=== PATIENT | female | born 1955 | race Caucasian/White ===

== ENCOUNTER → 2018-09-10 13:39 | Outpatient (CLI) | payer BC, SELFPAY ==
[2018-09-10 14:04] LABS: Add Manual Diff / Slide Review NO; Basophils Percent Auto 0.3 % (0-2); Eosinophils Percent Auto 4.3 % (2-4); Hematocrit 41.6 % (36-46); Lymphocytes Percent Auto 27.1 % (25-40); Mean Corpuscular HGB Conc 33.7 % (30-36); Mean Corpuscular Hemoglobin 30.7 PG (26-34); Mean Corpuscular Volume 91.2 fL (80-100); Monocytes Percent Auto 10.2 % (3-14); Neutrophils Absolute Auto 2000 /uL (3000-5900); Neutrophils Percent Auto 58.1 % (50-75); Platelet Count 208 X10^3/uL (150-400); Red Blood Cell Count 4.56 X10^6/uL (4.0-5.2); Red Cell Distribution Width 14.3 % (11.6-14.8); White Blood Cell Count 3.5 X10^3/uL (4.5-11.0)
[2018-09-10 14:56] LABS: Alanine Aminotransferase 37 IU/L (9-52); Albumin 4.3 g/dL (3.5-5.0); Albumin Globulin Ratio 1.5 (1.0-2.8); Alkaline Phosphatase 70 U/L (38-126); Aspartate Aminotransferase 32 IU/L (14-36); BUN Creatinine Ratio 37.1 (6-22); Bilirubin Total 0.6 mg/dL (0.2-1.3); Blood Urea Nitrogen 26 mg/dL (7-17); Calcium 9.9 mg/dL (8.4-10.2); Carbon Dioxide 28 mmol/L (22-32); Chloride 106 mmol/L (98-107); Estimated Glomerular Filt Rate > 60.0 mL/min (>60); Globulin 2.8 g/dL (1.7-4.1); Glucose 98 mg/dL (80-110); HEMOLYSIS < 15 (0-50); Potassium 4.1 mmol/L (3.4-5.1); Sodium 143 mmol/L (137-145); Total Protein 7.1 g/dL (6.3-8.2)
== END ==
PROVIDERS: Internal Medicine Hematology & Oncology; Family Provider Family Medicine; PCP Family Medicine
DX: C50.912 Malignant neoplasm of unspecified site of left female breast (principal)
CPT/HCPCS: 36415; 80053; 85025

== ENCOUNTER 2018-10-04 16:39 | Oncology outpatient (ONC) | payer BC, SELFPAY ==
--- NOTE | 2018-10-04 16:52 | ONC.APRN.PN ---
PN -Subjective Interval history: Beverly presents today for survivorship counseling. She carries a diagnosis of lobular breast cancer, T3 N1 ER, CT positive, HER 2 negative. Previous treatment included mastectomy, left with sentinel node biopsy March 2017. Chemotherapy was in the form of Adriamycin Cytoxan followed by weekly taxol with final infusion September 2017. She then underwent adjuvant chest wall radiation finishing in October 2017. She was taking letrozole November 2017 through May 2018 however stopped because of severe depression. She is now taking exemestane which was initiated in July 2018. We reviewed NCCN guidelines for surveillance in detail today. Also reviewed her treatment which include mastectomy, chemotherapy, radiation. Patient is now taking AI. We reviewed routine preventative health measures. Primary care is managed by Dr. Adams. This visit was in conjunction with JEFE De Los Santos who addressed psycho social issues. Home Medications and Allergies Home Medications Medication Instructions Recorded Confirmed Type mirabegron [Myrbetriq] 50 mg PO #0 11/06/16 08/25/18 History peginterferon beta-1a [Plegridy] 125 mcg SQ QWEEK #0 02/05/17 09/14/18 History albuterol sulfate HFA 90 2 puff INHALATION Q4-6H PRN #8 gram 05/05/18 09/14/18 Rx mcg/actuation aerosol inhaler bupropion HCl XL 300 mg 24 hr 300 mg PO QDAY #90 tab 06/28/18 09/14/18 Rx tablet, extended release meloxicam 15 mg tablet 15 mg PO Q DAY #90 tab 07/23/18 09/14/18 Rx fluoxetine 40 mg capsule 40 mg PO QDAY #90 cap 08/25/18 09/14/18 Rx lisdexamfetamine 40 mg capsule 40 mg PO QAM #90 cap 08/25/18 09/14/18 Rx montelukast 10 mg tablet 10 mg PO QDAY #90 tab 09/06/18 09/14/18 Rx bupropion HCl XL 150 mg 24 hr 150 mg PO QDAY #90 tab 09/21/18 Rx tablet, extended release Allergies Allergy/AdvReac Type Severity Reaction Status Date / Time feathers [FEATHERS] Allergy Severe ASTHMA Verified 09/14/18 14:54 mold [MOLD] Allergy Severe ASTHMA Verified 09/14/18 14:54 grass pollen [GRASS POLLEN] AdvReac Intermediate DERMATITIS Verified 09/14/18 14:54 Assessment and Plan (1) Breast cancer, left Problem details: 63-year-old woman with a history of a locally advanced lobular carcinoma. She has no evidence of recurrence. She was tolerating letrozole quite poorly. We discussed alternative treatments today. We could perhaps try an alternative aromatase inhibitor to see if she tolerates that better. We also talked about Faslodex but she was reluctant to come for shots every month. She also was unwilling to change her antidepressants and so tamoxifen may not be the best option for her. In the end, she is elected to try and give a try to another aromatase inhibitor. I have sent in a prescription for exemestane 25 mg daily. She will return to clinic in about 3 months for follow-up but sooner should the need arise. She will be due for a mammogram in October. She also had a small apparent an aortic aneurysm detected on echocardiogram last winter and will need to follow up. Current visit: No Status: Chronic Survivorship visit. NCCN surveillance guidelines reviewed in detail with the patient. We also reviewed her treatment plan which included mastectomy, chemotherapy, chest wall radiation. She will follow up with her primary care provider Dr. Adams regarding colonoscopy which she is overdue for also skin exam. She is to continue with exemestane. Patient has an appointment scheduled early next [address] Fischer. She also has an echocoardiogram scheduled. Al questions answered to the pts satisfaction. The pt was provided with documentation of her treatment plan , we will also mail a copy to her PCP. - Time Spent with Patient 35 mins face to face 5 mins prior review 5 mins dictation 5 mins coordination of care with BEER MAKER (1) Breast cancer, left Qualifiers:
--- NOTE | 2018-10-04 16:58 | P.PNONC_ITS ---
PN -Subjective Interval history: Beverly presents today for survivorship counseling. She carries a diagnosis of lobular breast cancer, T3 N1 ER, NM positive, HER 2 negative. Previous treatment included mastectomy, left with sentinel node biopsy March 2017. Chemotherapy was in the form of Adriamycin Cytoxan followed by weekly taxol with final infusion September 2017. She then underwent adjuvant chest wall radiation finishing in October 2017. She was taking letrozole November 2017 through May 2018 however stopped because of severe depression. She is now taking exemestane which was initiated in July 2018. We reviewed NCCN guidelines for surveillance in detail today. Also reviewed her treatment which include mastectomy, chemotherapy, radiation. Patient is now taking AI. We reviewed routine preventative health measures. Primary care is managed by Dr. Adams. This visit was in conjunction with JEFE De Los Santos who addressed psycho social issues. Home Medications and Allergies Home Medications Medication Instructions Recorded Confirmed Type mirabegron [Myrbetriq] 50 mg PO #0 11/06/16 08/25/18 History peginterferon beta-1a [Plegridy] 125 mcg SQ QWEEK #0 02/05/17 09/14/18 History albuterol sulfate HFA 90 2 puff INHALATION Q4-6H PRN #8 gram 05/05/18 09/14/18 Rx mcg/actuation aerosol inhaler bupropion HCl XL 300 mg 24 hr 300 mg PO QDAY #90 tab 06/28/18 09/14/18 Rx tablet, extended release meloxicam 15 mg tablet 15 mg PO Q DAY #90 tab 07/23/18 09/14/18 Rx fluoxetine 40 mg capsule 40 mg PO QDAY #90 cap 08/25/18 09/14/18 Rx lisdexamfetamine 40 mg capsule 40 mg PO QAM #90 cap 08/25/18 09/14/18 Rx montelukast 10 mg tablet 10 mg PO QDAY #90 tab 09/06/18 09/14/18 Rx bupropion HCl XL 150 mg 24 hr 150 mg PO QDAY #90 tab 09/21/18 Rx tablet, extended release Allergies Allergy/AdvReac Type Severity Reaction Status Date / Time feathers [FEATHERS] Allergy Severe ASTHMA Verified 09/14/18 14:54 mold [MOLD] Allergy Severe ASTHMA Verified 09/14/18 14:54 grass pollen [GRASS POLLEN] AdvReac Intermediate DERMATITIS Verified 09/14/18 14 :54 Assessment and Plan (1) Breast cancer, left Problem details: 63-year-old woman with a history of a locally advanced lobular carcinoma. She has no evidence of recurrence. She was tolerating letrozole quite poorly. We discussed alternative treatments today. We could perhaps try an alternative aromatase inhibitor to see if she tolerates that better. We also talked about Faslodex but she was reluctant to come for shots every month. She also was unwilling to change her antidepressants and so tamoxifen may not be the best option for her. In the end, she is elected to try and give a try to another aromatase inhibitor. I have sent in a prescription for exemestane 25 mg daily. She will return to clinic in about 3 months for follow-up but sooner should the need arise. She will be due for a mammogram in October. She also had a small apparent an aortic aneurysm detected on echocardiogram last winter and will need to follow up. Current visit: No Status: Chronic Survivorship visit. NCCN surveillance guidelines reviewed in detail with the patient. We also reviewed her treatment plan which included mastectomy, chemotherapy, chest wall radiation. She will follow up with her primary care provider Dr. Adams regarding colonoscopy which she is overdue for also skin exam. She is to continue with exemestane. Patient has an appointment scheduled early next [address] Fischer. She also has an echocoardiogram scheduled. Al questions answered to the pts satisfaction. The pt was provided with documentation of her treatment plan , we will also mail a copy to her PCP. - Time Spent with Patient 35 mins face to face 5 mins prior review 5 mins dictation 5 mins coordination of care with UTILITY MANAGER (1) Breast cancer, left Qualifiers:
--- NOTE | 2018-10-05 09:50 | ONC.NAV ---
Late Entry: Visit 10/04/18 Description: Survivorship Visit Activity: PIPE STRESS ENGINEER, and ISABEL White, met with pt to discuss her survivorship summary packet. Pt's treatment, risk factors for recurrence, recommendations for ongoing prevention screenings, healthy living recommendations, and psychosocial domain were discussed at length. Copy was also sent to her primary care provider.
== END 2018-12-30 08:27 ==
LOC: ONC 16:40
PROVIDERS: Family Provider Family Medicine; PCP Family Medicine; Visit Provider Nurse Practitioner Gerontology
DX: Z79.811 Long term (current) use of aromatase inhibitors (principal); Z17.0 Estrogen receptor positive status [ER+]; I71.9 Aortic aneurysm of unspecified site, without rupture
CPT/HCPCS: 99215

== ENCOUNTER → 2018-11-05 11:33 | Outpatient (CLI) | payer BC, SELFPAY ==
--- NOTE | 2018-11-05 | DI.MG.S_ITS ---
UNILATERAL RIGHT DIGITAL SCREENING MAMMOGRAM 3D/2D WITH CAD POST MASTECTOMY: 11/05/2018 CLINICAL: Routine screening. Personal history of breast cancer. Family history of breast cancer. Comparison is made to exams dated: 11/17/2017 mammogram, 11/13/2016 mammogram - [facility], and 04/02/2012 mammogram - [facility]. The tissue of right breast is heterogeneously dense. This may lower the sensitivity of mammography. Current study was also evaluated with a Computer Aided Detection (CAD) system. No significant masses, calcifications, or other findings are seen in the breast. There has been no significant interval change. IMPRESSION: NEGATIVE There is no mammographic evidence of malignancy. A 1 year screening mammogram is recommended. This exam was interpreted at Station ID: [id number]. NOTE: For mammograms, a report in lay terms will be sent to the patient. Approximately 15% of breast malignancies will not be visualized mammographically. In the management of a palpable breast mass, a negative mammogram must not discourage biopsy of a clinically suspicious lesion. Electronically Signed By: Sara matute/solomon:11/05/2018 12:54:24 copy to: GALILEO ROWAN letter sent: Normal Exam ACR BI-RADS Category 1: Negative [id number]
== END ==
PROVIDERS: PCP Family Medicine; Visit Provider Family Medicine
DX: Z12.31 Encounter for screening mammogram for malignant neoplasm of breast (principal); Z85.3 Personal history of malignant neoplasm of breast; Z80.3 Family history of malignant neoplasm of breast
CPT/HCPCS: 77063; 77065

== ENCOUNTER → 2019-08-31 11:30 | Outpatient (CLI) | payer OTHER, SELFPAY ==
--- NOTE | 2019-08-31 | DI.MRI.S_ITS ---
PROCEDURE: MR HEAD/BRAIN WO/W CON INDICATIONS: MS TECHNIQUE: Noncontrast sagittal and axial FLAIR, axial and coronal T2 fast spin echo, axial VIBE, axial gradient echo, axial diffusion and ADC through the brain. After the administration of contrast, axial and coronal VIBE with fat saturation through the brain. COMPARISON: [facility], MR, BRAIN W&WO CONTRAST, 12/05/2016, 15:25. FINDINGS: Image quality: Excellent. CSF spaces: Ventricles are normal in size and shape. Basal cisterns are patent. No extra-axial fluid collections. Brain: No intracranial bleeds or mass effects. Caldwell-white matter interface appears intact. Diffuse bilateral white matter signal changes demonstrate stable appearance. No abnormal intracranial enhancement. Diffusion weighted images show no acute ischemic insults. Brainstem appears normal. Normal intravascular flow voids are present. Skull and face: Calvarial marrow signal is normal. Orbits appear normal. Minimal left maxillary sinus mucosal thickening. IMPRESSION: Overall, no interval change. Stable appearance and distribution of scattered bilateral white matter signal changes. No abnormal enhancement. Dictated by: Bryan Gavin M.D. on 08/31/2019 at 12:39 Approved by: Bryan Gavin M.D. on 08/31/2019 at 12:48
== END ==
PROVIDERS: PCP Family Medicine; Visit Provider Specialist
DX: G35 Multiple sclerosis (principal); R26.81 Unsteadiness on feet
CPT/HCPCS: 70553; A9579

== ENCOUNTER 2019-10-21 13:00 | Outpatient (RCR) | payer OTHER, SELFPAY ==
--- NOTE | 2019-07-13 15:08 | PT.OIE ---
Current Diagnoses Strain of other muscles, fascia and tendons at shoulder and upper arm level, unspecified arm, initial encounter (07/13/19) Past Medical History (Last Reviewed 07/05/18 @ 14:37 by Curtis Adams MD) Trigger finger (Chronic) Hot flashes (Chronic) Right knee pain (Chronic) Generalized anxiety disorder (Chronic) Breast cancer, left (Chronic) Migraine (Chronic) Binge eating disorder (Chronic) Attention deficit disorder of adult with hyperactivity (09/20/15) History of hysterectomy (09/20/15) Menopause present (09/20/15) Multiple sclerosis (Chronic 09/20/15) Uncomplicated asthma (09/20/15) Bilateral carpal tunnel syndrome (09/20/15) Emotional lability (06/26/16) Malignant neoplasm of left female breast (12/29/16) 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/16) Pain in both upper extremities (12/29/16) Paresthesia (12/29/16) Ascending aortic aneurysm (03/03/17) Chronic pain of both shoulders (03/03/17) Chronic pain of right knee (03/03/17) Pain of left hand (Chronic 12/03/17) Trigger middle finger of left hand (Chronic 12/03/17) ADHD (attention deficit hyperactivity disorder) (Chronic Unknown) Ascending aortic aneurysm (Chronic ~02/2017) Asthma (Chronic Unknown) Breast cancer (Chronic ~2015) Depression (Chronic Unknown) Migraines (Chronic Unknown) Multiple sclerosis (Chronic Unknown) Osteoarthritis (Chronic ~04/2017) Psoriasis (Chronic Unknown) Carpal tunnel syndrome (Resolved ~2016) Low back pain (Resolved Unknown) Major depression, recurrent, full remission (Inactive) Past Surgical History (Last Reviewed 07/05/18 @ 14:37 by Curtis Adams MD) History of carpal tunnel release (Resolved 02/2017) Hx of hysterectomy with oophorectomy (Resolved Unknown) Hx of knee surgery (Resolved 1985) Hx of left mastectomy (Resolved 03/2017) Provider Visit Care Team Role Provider Type Curtis Adams MD Primary Care Provider Non-Staff Specialty: Family Practice Address: [address] [place] [address], [address] [place] [address], [id number] Email: Braeden Fischer MD Family Provider Physician Specialty: Oncology Address: [address] [place] [address], [id number] Email: Jason Norwood MD Attending Provider Physician Specialty: Orthopedic Surgery Address: [address] [place] [address], [id number] Email: [email or web address] [facility] Initial Evaluation PT-OP-A Visit Information Start: 07/12/19 11:08 Freq: Status: Active Protocol: Document 07/13/19 11:24 AR (Rec: 07/13/19 12:12 AR [email or web address]) Out-Patient Physical Therapy Visit Information Visit Information Visit Type Initial Evaluation Visit Start Time 10:30 Visit Stop Time 11:15 Total Visit Minutes 45 Visit Number 1 Number of POOL PLAYER Visits 0 Precautions Precautions Fall Risk, osteopenia, hx of cancer PT-OP-B Current Condition Start: 07/12/19 11:08 Freq: Status: Active Protocol: Document 07/13/19 11:24 AR (Rec: 07/13/19 12:12 AR [email or web address]) Current Condition History of Current Condition Onset Date 04/21/2019 Current Complaints L shoulder pain, weakness, and dec ROM History of Current Condition Pt reports she re-injured her L shoulder while closing the door of her car. She has suicide doors and her arm got caught in the door and was pulled behind her. She torn her RTC in 2004 and has had shoulder pain and weakness since then. Pt has a hx of MS and has had 3 falls in the past year. She has come to PT previously for balance training and is continuing to do balance and strengthening exercises at home. Pt also has hx of breast cancer and a L mastectomy and she believes that scar tissue may also be contributing to her shoulder pain. She stretches scar tissue daily. Pt is unable to lift anything heavier than 5 pounds and she is unable to turn off a light switch or close a door with her L hand. She has pain into hand and 3rd and 4th digit. She stated that no one can figure out what's wrong with my hand but also reported a dx of trigger finger. Pt has pain in palm of hand when her fingers aren 't working. Pt has a hx of neck pain and had surgery for carpal tunnel syndrome 2 years ago. Prior Treatments and Tests X-ray in 2004 after RTC injury , no fracture. Imaging for recent injury done at [facility] Treatment Goals Patient/Caregiver Goals Be able to use arm normally for lifting, closing doors. Be able to perform yoga stretches without shoulder pain. Personal Factors Other Personal Factors That May Effect Medical hx (MS, fall hx, Therapy/Recovery breast cancer, etc) PT-OP-C Subjective Start: 07/12/19 11:08 Freq: Status: Active Protocol: Document 07/13/19 11:24 AR (Rec: 07/13/19 12:12 AR [email or web address]) OP-PT Subjective Patient Comments Patient Comments Pt reports she has had shoulder pain for quite some time and is unable to use that arm for daily activities. Pt feels very weak and has pain with shoulder motions into abduction. Patient Reported Progress Worse Patient Questionnaires Quick Dash- Upper Extremity Quick Dash UE Score 58 Quick Dash UE Impairment 40 to 59% Impaired (Score 40- 59) PT-OP-F Manual Assessment Start: 07/12/19 11:08 Freq: Status: Active Protocol: Document 07/13/19 11:24 AR (Rec: 07/13/19 12:12 AR [email or web address]) Manual Assessments Soft Tissue Assessment Soft Tissue Mobility Assessment Myofascial restrictions in ant & lateral deltoid, biceps, and pectorals. Muscle guarding in upper trapezius Joint Mobility Assessment Joint Mobility Assessment suspected AC joint hypomobility and dysnfunction, but was unable to assess mobility d/t pain and guarding in UT PT-OP-J Posture/Palpation/Skin Start: 07/12/19 11:08 Freq: Status: Active Protocol: Document 07/13/19 11:24 AR (Rec: 07/13/19 12:12 AR [email or web address]) Posture Evaluation Position Sitting Evaluation View Lateral Head/C-Spine Posture Forward Head Shoulder Posture (L) Rounded (R) Rounded PT-OP-K Range of Motion Start: 07/12/19 11:08 Freq: Status: Active Protocol: Document 07/13/19 11:24 AR (Rec: 07/13/19 12:12 AR [email or web address]) Shoulder Goniometric Range of Motion Shoulder Left Testing Position Sitting Flexion 165 Abduction 105 External Rotation at 0 degrees Abduction 68 Internal Rotation Behind Back (text) unable to reach ASIS without pain or momentum/use of other hand Right Shoulder ROM WFL Yes Shoulder ROM Limitations Shoulder ROM Limitations Muscle Weakness Pain Comments pain and weakness with abduction PT-OP-L Special Tests Start: 07/12/19 11:08 Freq: Status: Active Protocol: Document 07/13/19 11:24 AR (Rec: 07/13/19 12:12 AR [email or web address]) Special Tests Shoulder Special Tests AC resisted extension Test Results negative Comments challenging to maintain position, but no pain AC Joint Compression Test Results positive Lateral Alek Test Results postive Comments indicative of RTC tear Speed's Biceps Test Results positive Estrada Renan Impingement Test Results positive Neer Impingement Test Results negative PT-OP-M Strength Start: 07/12/19 11:08 Freq: Status: Active Protocol: Document 07/13/19 11:24 AR (Rec: 07/13/19 12:12 AR [email or web address]) Shoulder Strength Shoulder Manual Muscle Testing Left Flexion 4+ Good+ Extension 5 Normal Abduction (C5) 3+ Fair+ External Rotation 3 Fair Internal Rotation 4+ Good+ Right Flexion 5 Normal Extension 5 Normal Abduction (C5) 5 Normal External Rotation 5 Normal Internal Rotation 5 Normal PT-OP-Q Treatments Start: 07/12/19 11:08 Freq: Status: Active Protocol: Document 07/13/19 11:24 AR (Rec: 07/13/19 12:12 AR [email or web address]) Therapeutic Exercises Supine Exercises Pec & biceps stretch Supine Exercise Name supine with palm toward ceiling Side left Reps/Minutes 30 sec hold Sitting Exercises cervical sidebending stretch Sitting Exercise Name C/S SB Side bilateral Reps/Minutes 30 sec hold each side Comments pt cued to relax shoulders, focus on breathing Scap Squeezes Sitting Exercise Name scap squeezes Side bilateral Reps/Minutes 2x10 reps Comments pt cued to limit ROM to avoid anterior shoulder pain Manual Therapy Treatment Soft Tissue Mobilization UT Body Location UT, lev scap Mobilization Type Strumming Sustained Pressure Intensity/Depth Moderate Body Position Supine Comments muscle guarding, pt cued to breath and relax shoulders Biceps Body Location biceps Mobilization Type Strumming Sustained Pressure Trigger Point Release Intensity/Depth Moderate Body Position Supine PT-OP-T Assessment and Plan Start: 07/12/19 11:08 Freq: Status: Active Protocol: Document 07/13/19 11:24 AR (Rec: 07/13/19 12:12 AR [email or web address]) Physical Therapy Assessment Rehab Potential Rehabilitation Potential Good Evaluation Complexity Number of Personal Factors/Comorbidities 3 or More Number of Body Systems Impaired 4 or More Clinical Presentation at Evaluation Evolving Impairments Impairments Activity Tolerance Balance Coordination Functional Activities Functional Mobility Gait Pain Posture ROM Sensation Soft Tissue Mobility Strength Tone Other Concerns Fall Risk yes Goals ROM Impairment decreased and painful ROM Short Term Goal (STG) Pt will improve abduction ROM to at least 140 deg and IR to L5/S1 level w/o pain and with proper scapular mechanics. STG Duration 08/13/2019 Stoner Out Goal (LTG) Pt will demonstrate L shoulder ROM within normal limits to be able to perform daily activities. LTG Duration 09/12/2019 Lifting Impairment pt unable to lift more than 5 lbs Short Term Goal (STG) Pt will be able to lift 5 lbs to 45 deg abd with proper scapular mechanics. STG Duration 08/13/2019 Stoner Out Goal (LTG) Pt will be able to lift 10 lbs without shoulder shrug and with proper scapular mechanics . LTG Duration 09/12/2019 Strength Impairment weakness Short Term Goal (STG) Pt will be compliant with HEP. STG Duration 08/13/19 Stoner Out Goal (LTG) Pt will inc all shoulder MMTs to at least 4/5 to be able to perform daily activities. LTG Duration 09/12/2019 Assessment Summary Assessment Pt presents with L anterior and lateral shoulder pain and weakness. S/s consistent with impingement, bicipital tendinitis, AC joint hypomobility and RTC tear. Pt' s hx of MS, osteopenia and falls puts her at risk of re- injury and pt was educated on performing exercises while seated or lying to avoid being unstable in a standing position. Pt will benefit from skilled PT to address weakness, soft tissue restrictions and joint hypomobility, and balance to improve shoulder function and decrease fall risk and re- injury. Physical Therapy Plan Frequency and Duration Frequency of Treatment 2x/Week Duration of Treatment 2 months Plan of Care Start Date 07/13/19 Plan of Care End Date 09/12/19 Therapeutic Interventions Therapeutic Interventions Aquatic Therapy Balance Training Coordination Training Gait Training Home Exercise Program Joint Mobilizations Manual Therapy Neuromuscular Re-education Patient/Caregiver Education Self-Care/Home Management Soft Tissue Mobilization Taping Therapeutic Activities Therapeutic Exercises Modalities Cold Pack/Ice Massage Hot Packs Traction- Mechanical Next Visit Focus/Plan Next Note Type Treatment Note Next Visit Plan shoulder AAROM as tolerated. Posture. seated ER/IR strengthening as tolerated. manual therapy to address biceps and deltoid restrictions
--- NOTE | 2019-07-13 15:08 | PT.OPPOC ---
Current Diagnoses Strain of other muscles, fascia and tendons at shoulder and upper arm level, unspecified arm, initial encounter (07/13/19) Provider Visit Care Team Role Provider Type Curtis Adams MD Primary Care Provider Non-Staff Specialty: Family Practice Address: [address] [place] [address], [address], [place], [address] Email: Braeden Fischer MD Family Provider Physician Specialty: Oncology Address: [address] [place] [address], [id number] Email: Jason Norwood MD Attending Provider Physician Specialty: Orthopedic Surgery Address: [address] [place] [address], [id number] Email: [email or web address] Plan Of Care PT-OP-T Assessment and Plan Start: 07/12/19 11:08 Freq: Status: Active Protocol: Document 07/13/19 11:24 AR (Rec: 07/13/19 12:12 AR [email or web address]) Physical Therapy Assessment Rehab Potential Rehabilitation Potential Good Evaluation Complexity Number of Personal Factors/Comorbidities 3 or More Number of Body Systems Impaired 4 or More Clinical Presentation at Evaluation Evolving Impairments Impairments Activity Tolerance Balance Coordination Functional Activities Functional Mobility Gait Pain Posture ROM Sensation Soft Tissue Mobility Strength Tone Other Concerns Fall Risk yes Goals ROM Impairment decreased and painful ROM Short Term Goal (STG) Pt will improve abduction ROM to at least 140 deg and IR to L5/S1 level w/o pain and with proper scapular mechanics. STG Duration 08/13/2019 Usp Goal (LTG) Pt will demonstrate L shoulder ROM within normal limits to be able to perform daily activities. LTG Duration 09/12/2019 Lifting Impairment pt unable to lift more than 5 lbs Short Term Goal (STG) Pt will be able to lift 5 lbs to 45 deg abd with proper scapular mechanics. STG Duration 08/13/2019 Usp Goal (LTG) Pt will be able to lift 10 lbs without shoulder shrug and with proper scapular mechanics . LTG Duration 09/12/2019 Strength Impairment weakness Short Term Goal (STG) Pt will be compliant with HEP. STG Duration 08/13/19 Usp Goal (LTG) Pt will inc all shoulder MMTs to at least 4/5 to be able to perform daily activities. LTG Duration 09/12/2019 Assessment Summary Assessment Pt presents with L anterior and lateral shoulder pain and weakness. S/s consistent with impingement, bicipital tendinitis, AC joint hypomobility and RTC tear. Pt' s hx of MS, osteopenia and falls puts her at risk of re- injury and pt was educated on performing exercises while seated or lying to avoid being unstable in a standing position. Pt will benefit from skilled PT to address weakness, soft tissue restrictions and joint hypomobility, and balance to improve shoulder function and decrease fall risk and re- injury. Physical Therapy Plan Frequency and Duration Frequency of Treatment 2x/Week Duration of Treatment 2 months Plan of Care Start Date 07/13/19 Plan of Care End Date 09/12/19 Therapeutic Interventions Therapeutic Interventions Aquatic Therapy Balance Training Coordination Training Gait Training Home Exercise Program Joint Mobilizations Manual Therapy Neuromuscular Re-education Patient/Caregiver Education Self-Care/Home Management Soft Tissue Mobilization Taping Therapeutic Activities Therapeutic Exercises Modalities Cold Pack/Ice Massage Hot Packs Traction- Mechanical Next Visit Focus/Plan Next Note Type Treatment Note Next Visit Plan shoulder AAROM as tolerated. Posture. seated ER/IR strengthening as tolerated. manual therapy to address biceps and deltoid restrictions Plan of Care Dates Plan of Care Start Date 07/13/19 Plan of Care End Date 09/12/19 Please Sign and Return: I have reviewed this Plan of Care and certify that the skilled therapy services above are required to meet the patient?s needs. Physician Signature Date Printed Name and Credentials Clinical Instructor Signature Printed Name and Credentials
--- NOTE | 2019-07-18 17:07 | PT.OTN ---
Current Diagnoses Stiffness of left shoulder, not elsewhere classified (07/18/19) Abnormal posture (07/18/19) Weakness (07/18/19) Strain of other muscles, fascia and tendons at shoulder and upper arm level, unspecified arm, initial encounter (07/18/19) Physical Therapy Treatment Note PT-OP-A Visit Information Start: 07/12/19 11:08 Freq: Status: Active Protocol: Document 07/18/19 09:31 SAK (Rec: 07/18/19 10:00 SAK [id number]) Out-Patient Physical Therapy Visit Information Visit Information Visit Type Treatment Note Visit Start Time 09:30 Visit Stop Time 10:25 Total Visit Minutes 55 Visit Number 2 Number of ASSISTANT [employer]AL PUBLIC DEFENDER Visits 0 Precautions Precautions Fall Risk, osteopenia, hx of cancer PT-OP-B Current Condition Start: 07/12/19 11:08 Freq: Status: Active Protocol: Document 07/13/19 11:24 AR (Rec: 07/13/19 12:12 AR [email or web address]) Current Condition History of Current Condition Onset Date 04/21/2019 Current Complaints L shoulder pain, weakness, and dec ROM History of Current Condition Pt reports she re-injured her L shoulder while closing the door of her car. She has suicide doors and her arm got caught in the door and was pulled behind her. She torn her RTC in 2004 and has had shoulder pain and weakness since then. Pt has a hx of MS and has had 3 falls in the past year. She has come to PT previously for balance training and is continuing to do balance and strengthening exercises at home. Pt also has hx of breast cancer and a L mastectomy and she believes that scar tissue may also be contributing to her shoulder pain. She stretches scar tissue daily. Pt is unable to lift anything heavier than 5 pounds and she is unable to turn off a light switch or close a door with her L hand. She has pain into hand and 3rd and 4th digit. She stated that no one can figure out what's wrong with my hand but also reported a dx of trigger finger. Pt has pain in palm of hand when her fingers aren 't working. Pt has a hx of neck pain and had surgery for carpal tunnel syndrome 2 years ago. Prior Treatments and Tests X-ray in 2004 after RTC injury , no fracture. Imaging for recent injury done at [facility] Orthopedics Treatment Goals Patient/Caregiver Goals Be able to use arm normally for lifting, closing doors. Be able to perform yoga stretches without shoulder pain. Personal Factors Other Personal Factors That May Effect Medical hx (MS, fall hx, Therapy/Recovery breast cancer, etc) PT-OP-C Subjective Start: 07/12/19 11:08 Freq: Status: Active Protocol: Document 07/18/19 09:31 SAK (Rec: 07/18/19 10:00 SAK [id number]) OP-PT Subjective Patient Comments Patient Comments Pain the same but able to move arm a little further. Patient reports she fatigues very quickly. PT-OP-F Manual Assessment Start: 07/12/19 11:08 Freq: Status: Active Protocol: Document 07/13/19 11:24 AR (Rec: 07/13/19 12:12 AR [email or web address]) Manual Assessments Soft Tissue Assessment Soft Tissue Mobility Assessment Myofascial restrictions in ant & lateral deltoid, biceps, and pectorals. Muscle guarding in upper trapezius Joint Mobility Assessment Joint Mobility Assessment suspected AC joint hypomobility and dysnfunction, but was unable to assess mobility d/t pain and guarding in UT Other Manual Assessments Other Manual Assessments UE Neural Tension tests ( Radial, Median and Ulnar) all negative PT-OP-J Posture/Palpation/Skin Start: 07/12/19 11:08 Freq: Status: Active Protocol: Document 07/13/19 11:24 AR (Rec: 07/13/19 12:12 AR [email or web address]) Posture Evaluation Position Sitting Evaluation View Lateral Head/C-Spine Posture Forward Head Shoulder Posture (L) Rounded (R) Rounded PT-OP-K Range of Motion Start: 07/12/19 11:08 Freq: Status: Active Protocol: Document 07/13/19 11:24 AR (Rec: 07/13/19 12:12 AR [email or web address]) Shoulder Goniometric Range of Motion Shoulder Left Testing Position Sitting Flexion 165 Abduction 105 External Rotation at 0 degrees Abduction 68 Internal Rotation Behind Back (text) unable to reach ASIS without pain or momentum/use of other hand Right Shoulder ROM WFL Yes Shoulder ROM Limitations Shoulder ROM Limitations Muscle Weakness Pain Comments pain and weakness with abduction PT-OP-L Special Tests Start: 07/12/19 11:08 Freq: Status: Active Protocol: Document 07/13/19 11:24 AR (Rec: 07/13/19 12:12 AR [email or web address]) Special Tests Shoulder Special Tests AC resisted extension Test Results negative Comments challenging to maintain position, but no pain AC Joint Compression Test Results positive Lateral Alek Test Results postive Comments indicative of RTC tear Speed's Biceps Test Results positive Estrada Renan Impingement Test Results positive Neer Impingement Test Results negative PT-OP-M Strength Start: 07/12/19 11:08 Freq: Status: Active Protocol: Document 07/13/19 11:24 AR (Rec: 07/13/19 12:12 AR [email or web address]) Shoulder Strength Shoulder Manual Muscle Testing Left Flexion 4+ Good+ Extension 5 Normal Abduction (C5) 3+ Fair+ External Rotation 3 Fair Internal Rotation 4+ Good+ Right Flexion 5 Normal Extension 5 Normal Abduction (C5) 5 Normal External Rotation 5 Normal Internal Rotation 5 Normal PT-OP-Q Treatments Start: 07/12/19 11:08 Freq: Status: Active Protocol: Document 07/18/19 09:31 SAK (Rec: 07/18/19 10:00 SAK [id number]) Therapeutic Exercises Supine Exercises serratus punch Equipment Used wand Reps/Minutes 10x Comments verbal and manual cues deep breathing Reps/Minutes 2 min Comments with gentle manual pec stretch shoulder flex Equipment Used wand Reps/Minutes 5x Comments painful at end range even with change in barrel drainer chest Supine Exercise Name chest press Resistance wand Reps/Minutes 5x Pec & biceps stretch Supine Exercise Name supine with palm toward ceiling Side left Reps/Minutes 30 sec hold Sitting Exercises shoulder shrugs Reps/Minutes 5x shoulder IR Comments painful shoulder ER Resistance L1 Reps/Minutes 10 cervical sidebending stretch Sitting Exercise Name C/S SB Side bilateral Reps/Minutes 30 sec hold each side Comments pt cued to relax shoulders, focus on breathing Scap Squeezes Sitting Exercise Name scap squeezes Side bilateral Reps/Minutes 2x10 reps Comments pt cued to limit ROM to avoid anterior shoulder pain Manual Therapy Treatment Soft Tissue Mobilization UT Body Location UT, lev scap Mobilization Type Strumming Sustained Pressure Intensity/Depth Moderate Body Position Supine Comments muscle guarding, pt cued to breath and relax shoulders Biceps Body Location biceps Mobilization Type Strumming Sustained Pressure Trigger Point Release Intensity/Depth Moderate Body Position Supine PT-OP-T Assessment and Plan Start: 07/12/19 11:08 Freq: Status: Active Protocol: Document 07/18/19 09:31 ESE (Rec: 07/18/19 17:06 [facility] [id number]) Physical Therapy Assessment Rehab Potential Rehabilitation Potential Good Evaluation Complexity Number of Personal Factors/Comorbidities 3 or More Number of Body Systems Impaired 4 or More Clinical Presentation at Evaluation Evolving Impairments Impairments Activity Tolerance Balance Coordination Functional Activities Functional Mobility Gait Pain Posture ROM Sensation Soft Tissue Mobility Strength Tone Goals ROM Impairment decreased and painful ROM Short Term Goal (STG) Pt will improve abduction ROM to at least 140 deg and IR to L5/S1 level w/o pain and with proper scapular mechanics. STG Duration 08/13/2019 Longterm Goal (LTG) Pt will demonstrate L shoulder ROM within normal limits to be able to perform daily activities. LTG Duration 09/12/2019 Lifting Impairment pt unable to lift more than 5 lbs Short Term Goal (STG) Pt will be able to lift 5 lbs to 45 deg abd with proper scapular mechanics. STG Duration 08/13/2019 Guest Services Officer Goal (LTG) Pt will be able to lift 10 lbs without shoulder shrug and with proper scapular mechanics . LTG Duration 09/12/2019 Strength Impairment weakness Short Term Goal (STG) Pt will be compliant with HEP. STG Duration 08/13/19 Longterm Goal (LTG) Pt will inc all shoulder MMTs to at least 4/5 to be able to perform daily activities. LTG Duration 09/12/2019 Assessment Summary Assessment Patient had fair tolerance for ther ex today though did not tolerate gentle shoulder internal rotation isometric ex or band ex, increased pain with shoulder flexion with wand. Good tolerance for pulleys, chest press, ER with band, shoulder shrugs, scap squeezes and serratus punch. Physical Therapy Plan Frequency and Duration Frequency of Treatment 2x/Week Duration of Treatment 2 months Plan of Care Start Date 07/13/19 Plan of Care End Date 09/12/19 Therapeutic Interventions Therapeutic Interventions Aquatic Therapy Balance Training Coordination Training Gait Training Home Exercise Program Joint Mobilizations Manual Therapy Neuromuscular Re-education Patient/Caregiver Education Self-Care/Home Management Soft Tissue Mobilization Taping Therapeutic Activities Therapeutic Exercises Modalities Cold Pack/Ice Massage Hot Packs Traction- Mechanical Next Visit Focus/Plan Next Note Type Treatment Note Next Visit Plan continue PT per POC for gentle shoulder ROM and strengthening, manual therapy to decrease muscle tension and pain.
--- NOTE | 2019-07-25 15:13 | PT.OTN ---
Current Diagnoses Stiffness of left shoulder, not elsewhere classified (07/25/19) Abnormal posture (07/25/19) Weakness (07/25/19) Strain of other muscles, fascia and tendons at shoulder and upper arm level, unspecified arm, initial encounter (07/25/19) Physical Therapy Treatment Note PT-OP-A Visit Information Start: 07/12/19 11:08 Freq: Status: Active Protocol: Document 07/25/19 09:00 SAK (Rec: 07/25/19 09:39 SAK [id number]) Out-Patient Physical Therapy Visit Information Visit Information Visit Type Treatment Note Visit Start Time 09:30 Visit Stop Time 10:25 Total Visit Minutes 55 Visit Number 2 Number of BIT BENDER Visits 0 Precautions Precautions Fall Risk, osteopenia, hx of cancer PT-OP-B Current Condition Start: 07/12/19 11:08 Freq: Status: Active Protocol: Document 07/13/19 11:24 AR (Rec: 07/13/19 12:12 AR [email or web address]) Current Condition History of Current Condition Onset Date 04/21/2019 Current Complaints L shoulder pain, weakness, and dec ROM History of Current Condition Pt reports she re-injured her L shoulder while closing the door of her car. She has suicide doors and her arm got caught in the door and was pulled behind her. She torn her RTC in 2004 and has had shoulder pain and weakness since then. Pt has a hx of MS and has had 3 falls in the past year. She has come to PT previously for balance training and is continuing to do balance and strengthening exercises at home. Pt also has hx of breast cancer and a L mastectomy and she believes that scar tissue may also be contributing to her shoulder pain. She stretches scar tissue daily. Pt is unable to lift anything heavier than 5 pounds and she is unable to turn off a light switch or close a door with her L hand. She has pain into hand and 3rd and 4th digit. She stated that no one can figure out what's wrong with my hand but also reported a dx of trigger finger. Pt has pain in palm of hand when her fingers aren 't working. Pt has a hx of neck pain and had surgery for carpal tunnel syndrome 2 years ago. Prior Treatments and Tests X-ray in 2004 after RTC injury , no fracture. Imaging for recent injury done at [facility] Orthopedics Treatment Goals Patient/Caregiver Goals Be able to use arm normally for lifting, closing doors. Be able to perform yoga stretches without shoulder pain. Personal Factors Other Personal Factors That May Effect Medical hx (MS, fall hx, Therapy/Recovery breast cancer, etc) PT-OP-C Subjective Start: 07/12/19 11:08 Freq: Status: Active Protocol: Document 07/25/19 09:00 SAK (Rec: 07/25/19 09:39 SAK [id number]) OP-PT Subjective Patient Comments Patient Comments Pain better at rest, still pain with movement out to side or behind back. PT-OP-F Manual Assessment Start: 07/12/19 11:08 Freq: Status: Active Protocol: Document 07/13/19 11:24 AR (Rec: 07/13/19 12:12 AR [email or web address]) Manual Assessments Soft Tissue Assessment Soft Tissue Mobility Assessment Myofascial restrictions in ant & lateral deltoid, biceps, and pectorals. Muscle guarding in upper trapezius Joint Mobility Assessment Joint Mobility Assessment suspected AC joint hypomobility and dysnfunction, but was unable to assess mobility d/t pain and guarding in UT Other Manual Assessments Other Manual Assessments UE Neural Tension tests ( Radial, Median and Ulnar) all negative PT-OP-J Posture/Palpation/Skin Start: 07/12/19 11:08 Freq: Status: Active Protocol: Document 07/13/19 11:24 AR (Rec: 07/13/19 12:12 AR [email or web address]) Posture Evaluation Position Sitting Evaluation View Lateral Head/C-Spine Posture Forward Head Shoulder Posture (L) Rounded (R) Rounded PT-OP-K Range of Motion Start: 07/12/19 11:08 Freq: Status: Active Protocol: Document 07/13/19 11:24 AR (Rec: 07/13/19 12:12 AR [email or web address]) Shoulder Goniometric Range of Motion Shoulder Left Testing Position Sitting Flexion 165 Abduction 105 External Rotation at 0 degrees Abduction 68 Internal Rotation Behind Back (text) unable to reach ASIS without pain or momentum/use of other hand Right Shoulder ROM WFL Yes Shoulder ROM Limitations Shoulder ROM Limitations Muscle Weakness Pain Comments pain and weakness with abduction PT-OP-L Special Tests Start: 07/12/19 11:08 Freq: Status: Active Protocol: Document 07/13/19 11:24 AR (Rec: 07/13/19 12:12 AR [email or web address]) Special Tests Shoulder Special Tests AC resisted extension Test Results negative Comments challenging to maintain position, but no pain AC Joint Compression Test Results positive Lateral Alek Test Results postive Comments indicative of RTC tear Speed's Biceps Test Results positive Estrada Renan Impingement Test Results positive Neer Impingement Test Results negative PT-OP-M Strength Start: 07/12/19 11:08 Freq: Status: Active Protocol: Document 07/13/19 11:24 AR (Rec: 07/13/19 12:12 AR [email or web address]) Shoulder Strength Shoulder Manual Muscle Testing Left Flexion 4+ Good+ Extension 5 Normal Abduction (C5) 3+ Fair+ External Rotation 3 Fair Internal Rotation 4+ Good+ Right Flexion 5 Normal Extension 5 Normal Abduction (C5) 5 Normal External Rotation 5 Normal Internal Rotation 5 Normal PT-OP-Q Treatments Start: 07/12/19 11:08 Freq: Status: Active Protocol: Document 07/25/19 09:00 SAK (Rec: 07/25/19 09:39 SAK [id number]) Therapeutic Exercises Supine Exercises serratus punch Equipment Used wand Reps/Minutes 10x Comments verbal and manual cues deep breathing Reps/Minutes 2 min Comments with gentle manual pec stretch shoulder flex Equipment Used wand Reps/Minutes 5x chest Supine Exercise Name chest press Resistance wand with 1# Reps/Minutes 5x Pec & biceps stretch Supine Exercise Name supine with palm toward ceiling Side left Reps/Minutes 30 sec hold Sitting Exercises bicep curl Resistance 1# Reps/Minutes 10x shoulder shrugs Reps/Minutes 5x shoulder IR Resistance L1 TB Reps/Minutes 10x shoulder ER Resistance L1 Reps/Minutes 10 cervical sidebending stretch Sitting Exercise Name C/S SB Side bilateral Reps/Minutes 30 sec hold each side Comments pt cued to relax shoulders, focus on breathing Scap Squeezes Sitting Exercise Name scap squeezes Side bilateral Reps/Minutes 2x10 reps Comments pt cued to limit ROM to avoid anterior shoulder pain Manual Therapy Treatment Soft Tissue Mobilization UT Body Location UT, lev scap Mobilization Type Strumming Sustained Pressure Intensity/Depth Moderate Body Position Supine Comments muscle guarding, pt cued to breath and relax shoulders Biceps Body Location biceps Mobilization Type Strumming Sustained Pressure Trigger Point Release Intensity/Depth Moderate Body Position Supine PT-OP-R Modalities Start: 07/12/19 11:08 Freq: Status: Active Protocol: Document 07/25/19 09:00 ESE (Rec: 07/25/19 15:13 [facility] [id number]) Hot Pack/Cold Pack Treatment Cold Pack Location left shoulder Patient Position Hooklying Treatment Duration (minutes) 10 Patient Tolerance Good PT-OP-T Assessment and Plan Start: 07/12/19 11:08 Freq: Status: Active Protocol: Document 07/25/19 09:00 [facility] (Rec: 07/25/19 15:13 [facility] [id number]) Physical Therapy Assessment Goals ROM Impairment decreased and painful ROM Short Term Goal (STG) Pt will improve abduction ROM to at least 140 deg and IR to L5/S1 level w/o pain and with proper scapular mechanics. STG Duration 08/13/2019 Computational Biologist Goal (LTG) Pt will demonstrate L shoulder ROM within normal limits to be able to perform daily activities. LTG Duration 09/12/2019 Lifting Impairment pt unable to lift more than 5 lbs Short Term Goal (STG) Pt will be able to lift 5 lbs to 45 deg abd with proper scapular mechanics. STG Duration 08/13/2019 Computational Biologist Goal (LTG) Pt will be able to lift 10 lbs without shoulder shrug and with proper scapular mechanics . LTG Duration 09/12/2019 Strength Impairment weakness Short Term Goal (STG) Pt will be compliant with HEP. STG Duration 08/13/19 [facility] Goal (LTG) Pt will inc all shoulder MMTs to at least 4/5 to be able to perform daily activities. LTG Duration 09/12/2019 Assessment Summary Assessment Improving exercise and activity tolerance, no pain at rest, only with movement. Good progress toward goals. Physical Therapy Plan Frequency and Duration Frequency of Treatment 2x/Week Duration of Treatment 2 months Plan of Care Start Date 07/13/19 Plan of Care End Date 09/12/19 Therapeutic Interventions Therapeutic Interventions Aquatic Therapy Balance Training Coordination Training Gait Training Home Exercise Program Joint Mobilizations Manual Therapy Neuromuscular Re-education Patient/Caregiver Education Self-Care/Home Management Soft Tissue Mobilization Taping Therapeutic Activities Therapeutic Exercises Modalities Cold Pack/Ice Massage Hot Packs Traction- Mechanical Next Visit Focus/Plan Next Note Type Treatment Note Next Visit Plan Progression of shoulder exercises as tolerated with emphasis on neutral postural alignment
--- NOTE | 2019-07-28 16:22 | PT.OTN ---
Current Diagnoses Stiffness of left shoulder, not elsewhere classified (07/28/19) Abnormal posture (07/28/19) Weakness (07/28/19) Strain of other muscles, fascia and tendons at shoulder and upper arm level, unspecified arm, initial encounter (07/28/19) Physical Therapy Treatment Note PT-OP-A Visit Information Start: 07/12/19 11:08 Freq: Status: Active Protocol: Document 07/28/19 13:47 HH (Rec: 07/28/19 16:21 HH [email or web address]) Out-Patient Physical Therapy Visit Information Visit Information Visit Type Treatment Note Visit Start Time 13:47 Visit Stop Time 14:32 Total Visit Minutes 45 Visit Number 4 Number of DIRECTOR OF NURSING Visits 0 PT-OP-B Current Condition Start: 07/12/19 11:08 Freq: Status: Active Protocol: Document 07/13/19 11:24 AR (Rec: 07/13/19 12:12 AR [email or web address]) Current Condition History of Current Condition Onset Date 04/21/2019 Current Complaints L shoulder pain, weakness, and dec ROM History of Current Condition Pt reports she re-injured her L shoulder while closing the door of her car. She has suicide doors and her arm got caught in the door and was pulled behind her. She torn her RTC in 2004 and has had shoulder pain and weakness since then. Pt has a hx of MS and has had 3 falls in the past year. She has come to PT previously for balance training and is continuing to do balance and strengthening exercises at home. Pt also has hx of breast cancer and a L mastectomy and she believes that scar tissue may also be contributing to her shoulder pain. She stretches scar tissue daily. Pt is unable to lift anything heavier than 5 pounds and she is unable to turn off a light switch or close a door with her L hand. She has pain into hand and 3rd and 4th digit. She stated that no one can figure out what's wrong with my hand but also reported a dx of trigger finger. Pt has pain in palm of hand when her fingers aren 't working. Pt has a hx of neck pain and had surgery for carpal tunnel syndrome 2 years ago. Prior Treatments and Tests X-ray in 2004 after RTC injury , no fracture. Imaging for recent injury done at [facility] Treatment Goals Patient/Caregiver Goals Be able to use arm normally for lifting, closing doors. Be able to perform yoga stretches without shoulder pain. Personal Factors Other Personal Factors That May Effect Medical hx (MS, fall hx, Therapy/Recovery breast cancer, etc) PT-OP-C Subjective Start: 07/12/19 11:08 Freq: Status: Active Protocol: Document 07/28/19 13:47 HH (Rec: 07/28/19 16:21 HH [email or web address]) OP-PT Subjective Patient Comments Patient Comments Pain better at rest. mostly pain with abduction. Patient Reported Progress Improving PT-OP-F Manual Assessment Start: 07/12/19 11:08 Freq: Status: Active Protocol: Document 07/13/19 11:24 AR (Rec: 07/13/19 12:12 AR [email or web address]) Manual Assessments Soft Tissue Assessment Soft Tissue Mobility Assessment Myofascial restrictions in ant & lateral deltoid, biceps, and pectorals. Muscle guarding in upper trapezius Joint Mobility Assessment Joint Mobility Assessment suspected AC joint hypomobility and dysnfunction, but was unable to assess mobility d/t pain and guarding in UT Other Manual Assessments Other Manual Assessments UE Neural Tension tests ( Radial, Median and Ulnar) all negative PT-OP-J Posture/Palpation/Skin Start: 07/12/19 11:08 Freq: Status: Active Protocol: Document 07/13/19 11:24 AR (Rec: 07/13/19 12:12 AR [email or web address]) Posture Evaluation Position Sitting Evaluation View Lateral Head/C-Spine Posture Forward Head Shoulder Posture (L) Rounded,(R) Rounded PT-OP-K Range of Motion Start: 07/12/19 11:08 Freq: Status: Active Protocol: Document 07/13/19 11:24 AR (Rec: 07/13/19 12:12 AR [email or web address]) Shoulder Goniometric Range of Motion Shoulder Left Testing Position Sitting Flexion 165 Abduction 105 External Rotation at 0 degrees Abduction 68 Internal Rotation Behind Back (text) unable to reach ASIS without pain or momentum/use of other hand Right Shoulder ROM WFL Yes Shoulder ROM Limitations Shoulder ROM Limitations Muscle Weakness,Pain Comments pain and weakness with abduction PT-OP-L Special Tests Start: 07/12/19 11:08 Freq: Status: Active Protocol: Document 07/13/19 11:24 AR (Rec: 07/13/19 12:12 AR [email or web address]) Special Tests Shoulder Special Tests AC resisted extension Test Results negative Comments challenging to maintain position, but no pain AC Joint Compression Test Results positive Lateral Alek Test Results postive Comments indicative of RTC tear Speed's Biceps Test Results positive Estrada Renan Impingement Test Results positive Neer Impingement Test Results negative PT-OP-M Strength Start: 07/12/19 11:08 Freq: Status: Active Protocol: Document 07/13/19 11:24 AR (Rec: 07/13/19 12:12 AR [email or web address]) Shoulder Strength Shoulder Manual Muscle Testing Left Flexion 4+ Good+ Extension 5 Normal Abduction (C5) 3+ Fair+ External Rotation 3 Fair Internal Rotation 4+ Good+ Right Flexion 5 Normal Extension 5 Normal Abduction (C5) 5 Normal External Rotation 5 Normal Internal Rotation 5 Normal PT-OP-Q Treatments Start: 07/12/19 11:08 Freq: Status: Active Protocol: Document 07/28/19 13:47 HH (Rec: 07/28/19 16:21 HH [email or web address]) Therapeutic Exercises Supine Exercises shoulder flex Equipment Used wand Reps/Minutes 5x Sitting Exercises table slide Sitting Exercise Name flexion and abd Side left Reps/Minutes 5 x 2 cane stretch Sitting Exercise Name AAROM ABD Side left Reps/Minutes 8 x 2 Comments with extended elbow overhead nadeem Sitting Exercise Name flexion, abd, extension Side bilateral Reps/Minutes 5 mins Comments cues on slow movements Scap Squeezes Sitting Exercise Name scap squeezes Side bilateral Reps/Minutes 2x10 reps Comments pt cued to limit ROM to avoid anterior shoulder pain Standing Exercises scap retraction Side bilateral Equipment Used level 1 band Reps/Minutes 10 x2 wall climb Standing Exercise Name flexion Side left Equipment Used wall Reps/Minutes 5 x 2 Manual Therapy Treatment Soft Tissue Mobilization UT Body Location UT, lev scap Mobilization Type Strumming,Sustained Pressure Intensity/Depth Moderate Body Position Supine Comments muscle guarding, pt cued to breath and relax shoulders PT-OP-R Modalities Start: 07/12/19 11:08 Freq: Status: Active Protocol: Document 07/25/19 09:00 SAK (Rec: 07/25/19 15:13 SAK [id number]) Hot Pack/Cold Pack Treatment Cold Pack Location left shoulder Patient Position Hooklying Treatment Duration (minutes) 10 Patient Tolerance Good PT-OP-T Assessment and Plan Start: 07/12/19 11:08 Freq: Status: Active Protocol: Document 07/28/19 13:47 HH (Rec: 07/28/19 16:21 [email or web address]) Physical Therapy Assessment Goals ROM Impairment decreased and painful ROM Short Term Goal (STG) Pt will improve abduction ROM to at least 140 deg and IR to L5/S1 level w/o pain and with proper scapular mechanics. STG Duration 08/13/2019 Poultry Processing Supervisor Goal (LTG) Pt will demonstrate L shoulder ROM within normal limits to be able to perform daily activities. LTG Duration 09/12/2019 Lifting Impairment pt unable to lift more than 5 lbs Short Term Goal (STG) Pt will be able to lift 5 lbs to 45 deg abd with proper scapular mechanics. STG Duration 08/13/2019 Longterm Goal (LTG) Pt will be able to lift 10 lbs without shoulder shrug and with proper scapular mechanics . LTG Duration 09/12/2019 Strength Impairment weakness Short Term Goal (STG) Pt will be compliant with HEP. STG Duration 08/13/19 Longterm Goal (LTG) Pt will inc all shoulder MMTs to at least 4/5 to be able to perform daily activities. LTG Duration 09/12/2019 Assessment Summary Assessment Pt roro tx well but easily get fatigue with AAROM ex. Pt denies pain while shd abd with SPC but increase in pain with wall climb/ overhead nadeem. PT cont to show muscle guarding during AROM. Physical Therapy Plan Next Visit Focus/Plan Next Note Type Treatment Note Next Visit Plan Progression of shoulder exercises as tolerated with emphasis on neutral postural alignment
--- NOTE | 2019-08-04 13:20 | PT.OTN ---
Current Diagnoses Stiffness of left shoulder, not elsewhere classified (08/04/19) Abnormal posture (08/04/19) Weakness (08/04/19) Strain of other muscles, fascia and tendons at shoulder and upper arm level, unspecified arm, initial encounter (08/04/19) Physical Therapy Treatment Note PT-OP-A Visit Information Start: 07/12/19 11:08 Freq: Status: Active Protocol: Document 08/04/19 11:17 SAK (Rec: 08/04/19 11:57 SAK [id number]) Out-Patient Physical Therapy Visit Information Visit Information Visit Type Treatment Note Visit Start Time 01:15 Visit Stop Time 02:10 Total Visit Minutes 55 Visit Number 5 Number of FIRE BOSS Visits 0 Precautions Precautions Fall Risk, osteopenia, hx of cancer PT-OP-B Current Condition Start: 07/12/19 11:08 Freq: Status: Active Protocol: Document 07/13/19 11:24 AR (Rec: 07/13/19 12:12 AR [email or web address]) Current Condition History of Current Condition Onset Date 04/21/2019 Current Complaints L shoulder pain, weakness, and dec ROM History of Current Condition Pt reports she re-injured her L shoulder while closing the door of her car. She has suicide doors and her arm got caught in the door and was pulled behind her. She torn her RTC in 2004 and has had shoulder pain and weakness since then. Pt has a hx of MS and has had 3 falls in the past year. She has come to PT previously for balance training and is continuing to do balance and strengthening exercises at home. Pt also has hx of breast cancer and a L mastectomy and she believes that scar tissue may also be contributing to her shoulder pain. She stretches scar tissue daily. Pt is unable to lift anything heavier than 5 pounds and she is unable to turn off a light switch or close a door with her L hand. She has pain into hand and 3rd and 4th digit. She stated that no one can figure out what's wrong with my hand but also reported a dx of trigger finger. Pt has pain in palm of hand when her fingers aren 't working. Pt has a hx of neck pain and had surgery for carpal tunnel syndrome 2 years ago. Prior Treatments and Tests X-ray in 2004 after RTC injury , no fracture. Imaging for recent injury done at [facility] Treatment Goals Patient/Caregiver Goals Be able to use arm normally for lifting, closing doors. Be able to perform yoga stretches without shoulder pain. Personal Factors Other Personal Factors That May Effect Medical hx (MS, fall hx, Therapy/Recovery breast cancer, etc) PT-OP-C Subjective Start: 07/12/19 11:08 Freq: Status: Active Protocol: Document 08/04/19 11:17 SAK (Rec: 08/04/19 11:57 SAK [id number]) OP-PT Subjective Patient Comments Patient Comments Pain better at rest. mostly pain with abduction. Patient Reported Progress Improving PT-OP-F Manual Assessment Start: 07/12/19 11:08 Freq: Status: Active Protocol: Document 07/13/19 11:24 AR (Rec: 07/13/19 12:12 AR [email or web address]) Manual Assessments Soft Tissue Assessment Soft Tissue Mobility Assessment Myofascial restrictions in ant & lateral deltoid, biceps, and pectorals. Muscle guarding in upper trapezius Joint Mobility Assessment Joint Mobility Assessment suspected AC joint hypomobility and dysnfunction, but was unable to assess mobility d/t pain and guarding in [place] Other Manual Assessments Other Manual Assessments UE Neural Tension tests ( Radial, Median and Ulnar) all negative PT-OP-J Posture/Palpation/Skin Start: 07/12/19 11:08 Freq: Status: Active Protocol: Document 07/13/19 11:24 AR (Rec: 07/13/19 12:12 AR [email or web address]) Posture Evaluation Position Sitting Evaluation View Lateral Head/C-Spine Posture Forward Head Shoulder Posture (L) Rounded,(R) Rounded PT-OP-K Range of Motion Start: 07/12/19 11:08 Freq: Status: Active Protocol: Document 07/13/19 11:24 AR (Rec: 07/13/19 12:12 AR [email or web address]) Shoulder Goniometric Range of Motion Shoulder Left Testing Position Sitting Flexion 165 Abduction 105 External Rotation at 0 degrees Abduction 68 Internal Rotation Behind Back (text) unable to reach ASIS without pain or momentum/use of other hand Right Shoulder ROM WFL Yes Shoulder ROM Limitations Shoulder ROM Limitations Muscle Weakness,Pain Comments pain and weakness with abduction PT-OP-L Special Tests Start: 07/12/19 11:08 Freq: Status: Active Protocol: Document 07/13/19 11:24 AR (Rec: 07/13/19 12:12 AR [email or web address]) Special Tests Shoulder Special Tests AC resisted extension Test Results negative Comments challenging to maintain position, but no pain AC Joint Compression Test Results positive Lateral Alek Test Results postive Comments indicative of RTC tear Speed's Biceps Test Results positive Estrada Renan Impingement Test Results positive Neer Impingement Test Results negative PT-OP-M Strength Start: 07/12/19 11:08 Freq: Status: Active Protocol: Document 07/13/19 11:24 AR (Rec: 07/13/19 12:12 AR [email or web address]) Shoulder Strength Shoulder Manual Muscle Testing Left Flexion 4+ Good+ Extension 5 Normal Abduction (C5) 3+ Fair+ External Rotation 3 Fair Internal Rotation 4+ Good+ Right Flexion 5 Normal Extension 5 Normal Abduction (C5) 5 Normal External Rotation 5 Normal Internal Rotation 5 Normal PT-OP-Q Treatments Start: 07/12/19 11:08 Freq: Status: Active Protocol: Document 08/04/19 11:17 SAK (Rec: 08/04/19 11:57 SAK [id number]) Cardio Equipment Recumbent Stepper (Sci-Fit) Duration (Minutes) 5 Resistance 1 Seat Position 10 Therapeutic Exercises Supine Exercises serratus punch Equipment Used wand Reps/Minutes 10x Comments verbal and manual cues shoulder flex Equipment Used wand Reps/Minutes 5x chest Supine Exercise Name chest press Resistance wand with 1# Reps/Minutes 5x Pec & biceps stretch Supine Exercise Name supine with palm toward ceiling Side left Reps/Minutes 30 sec hold Sitting Exercises table slide Sitting Exercise Name flexion and abd Side left Reps/Minutes 5 x 2 cane stretch Sitting Exercise Name AAROM ABD Side left Reps/Minutes 8 x 2 Comments with extended elbow overhead nadeem Sitting Exercise Name flexion, abd, extension Side bilateral Reps/Minutes 5 mins Comments cues on slow movements shoulder shrugs Reps/Minutes 5x shoulder IR Resistance L1 TB Reps/Minutes 10x shoulder ER Resistance L1 TB Reps/Minutes 10 cervical sidebending stretch Sitting Exercise Name C/S SB Side bilateral Reps/Minutes 30 sec hold each side Comments pt cued to relax shoulders, focus on breathing Scap Squeezes Sitting Exercise Name scap squeezes Side bilateral Reps/Minutes 2x10 reps Comments pt cued to limit ROM to avoid anterior shoulder pain Standing Exercises scap retraction Side bilateral Equipment Used level 1 band Reps/Minutes 10 x2 wall climb Standing Exercise Name flexion Side left Equipment Used wall Reps/Minutes 5 x 2 Manual Therapy Treatment Soft Tissue Mobilization UT Body Location UT, lev scap Mobilization Type Strumming,Sustained Pressure Intensity/Depth Moderate Body Position Supine Comments muscle guarding, pt cued to breath and relax shoulders Biceps Body Location biceps Mobilization Type Strumming,Sustained Pressure, Trigger Point Release Intensity/Depth Moderate Body Position Supine PT-OP-R Modalities Start: 07/12/19 11:08 Freq: Status: Active Protocol: Document 08/04/19 11:17 [facility] (Rec: 08/04/19 11:57 [facility] [id number]) Hot Pack/Cold Pack Treatment Cold Pack Location left shoulder Patient Position Hooklying Treatment Duration (minutes) 10 Patient Tolerance Good PT-OP-T Assessment and Plan Start: 07/12/19 11:08 Freq: Status: Active Protocol: Document 08/04/19 11:17 [facility] (Rec: 08/04/19 11:57 [facility] [id number]) Physical Therapy Assessment Goals ROM Impairment decreased and painful ROM Short Term Goal (STG) Pt will improve abduction ROM to at least 140 deg and IR to L5/S1 level w/o pain and with proper scapular mechanics. STG Duration 08/13/2019 Skilled Nursing Goal (LTG) Pt will demonstrate L shoulder ROM within normal limits to be able to perform daily activities. LTG Duration 09/12/2019 Lifting Impairment pt unable to lift more than 5 lbs Short Term Goal (STG) Pt will be able to lift 5 lbs to 45 deg abd with proper scapular mechanics. STG Duration 08/13/2019 Skilled Nursing Goal (LTG) Pt will be able to lift 10 lbs without shoulder shrug and with proper scapular mechanics . LTG Duration 09/12/2019 Strength Impairment weakness Short Term Goal (STG) Pt will be compliant with HEP. STG Duration 08/13/19 Pre Press Proofer Goal (LTG) Pt will inc all shoulder MMTs to at least 4/5 to be able to perform daily activities. LTG Duration 09/12/2019 Physical Therapy Plan Frequency and Duration Frequency of Treatment 2x/Week Duration of Treatment 2 months Plan of Care Start Date 07/13/19 Plan of Care End Date 09/12/19 Therapeutic Interventions Therapeutic Interventions Aquatic Therapy,Balance Training,Coordination Training ,Gait Training,Home Exercise Program,Joint Mobilizations, Manual Therapy,Neuromuscular Re-education,Patient/Caregiver Education,Self-Care/Home Management,Soft Tissue Mobilization,Taping, Therapeutic Activities, Therapeutic Exercises Modalities Cold Pack/Ice Massage,Hot Packs,Traction- Mechanical Next Visit Focus/Plan Next Note Type Treatment Note Next Visit Plan Progression of shoulder exercises as tolerated with emphasis on neutral postural alignment. Scapular clocks, sidelying shoulder ER and abuction as tolerated.
--- NOTE | 2019-08-11 17:41 | PT.OTN ---
Current Diagnoses Stiffness of left shoulder, not elsewhere classified (08/11/19) Abnormal posture (08/11/19) Weakness (08/11/19) Strain of other muscles, fascia and tendons at shoulder and upper arm level, unspecified arm, initial encounter (08/11/19) Physical Therapy Treatment Note PT-OP-A Visit Information Start: 07/12/19 11:08 Freq: Status: Active Protocol: Document 08/11/19 16:45 [facility] (Rec: 08/11/19 17:33 [facility] [id number]) Out-Patient Physical Therapy Visit Information Visit Information Visit Type Treatment Note Visit Start Time 16:42 Visit Stop Time 17:36 Total Visit Minutes 54 Visit Number 6 Number of RACK PUSHER Visits 0 PT-OP-B Current Condition Start: 07/12/19 11:08 Freq: Status: Active Protocol: Document 07/13/19 11:24 AR (Rec: 07/13/19 12:12 AR [email or web address]) Current Condition History of Current Condition Onset Date 04/21/2019 Current Complaints L shoulder pain, weakness, and dec ROM History of Current Condition Pt reports she re-injured her L shoulder while closing the door of her car. She has suicide doors and her arm got caught in the door and was pulled behind her. She torn her RTC in 2004 and has had shoulder pain and weakness since then. Pt has a hx of MS and has had 3 falls in the past year. She has come to PT previously for balance training and is continuing to do balance and strengthening exercises at home. Pt also has hx of breast cancer and a L mastectomy and she believes that scar tissue may also be contributing to her shoulder pain. She stretches scar tissue daily. Pt is unable to lift anything heavier than 5 pounds and she is unable to turn off a light switch or close a door with her L hand. She has pain into hand and 3rd and 4th digit. She stated that no one can figure out what's wrong with my hand but also reported a dx of trigger finger. Pt has pain in palm of hand when her fingers aren 't working. Pt has a hx of neck pain and had surgery for carpal tunnel syndrome 2 years ago. Prior Treatments and Tests X-ray in 2004 after RTC injury , no fracture. Imaging for recent injury done at [facility] Orthopedics Treatment Goals Patient/Caregiver Goals Be able to use arm normally for lifting, closing doors. Be able to perform yoga stretches without shoulder pain. Personal Factors Other Personal Factors That May Effect Medical hx (MS, fall hx, Therapy/Recovery breast cancer, etc) PT-OP-C Subjective Start: 07/12/19 11:08 Freq: Status: Active Protocol: Document 08/11/19 16:45 LR (Rec: 08/11/19 17:33 LR [id number]) OP-PT Subjective Patient Comments Patient Comments Pt reports still trouble reaching behind her back to wash her back etc Patient Reported Progress Improving PT-OP-F Manual Assessment Start: 07/12/19 11:08 Freq: Status: Active Protocol: Document 07/13/19 11:24 AR (Rec: 07/13/19 12:12 AR [email or web address]) Manual Assessments Soft Tissue Assessment Soft Tissue Mobility Assessment Myofascial restrictions in ant & lateral deltoid, biceps, and pectorals. Muscle guarding in upper trapezius Joint Mobility Assessment Joint Mobility Assessment suspected AC joint hypomobility and dysnfunction, but was unable to assess mobility d/t pain and guarding in UT Other Manual Assessments Other Manual Assessments UE Neural Tension tests ( Radial, Median and Ulnar) all negative PT-OP-J Posture/Palpation/Skin Start: 07/12/19 11:08 Freq: Status: Active Protocol: Document 07/13/19 11:24 AR (Rec: 07/13/19 12:12 AR [email or web address]) Posture Evaluation Position Sitting Evaluation View Lateral Head/C-Spine Posture Forward Head Shoulder Posture (L) Rounded,(R) Rounded PT-OP-K Range of Motion Start: 07/12/19 11:08 Freq: Status: Active Protocol: Document 07/13/19 11:24 AR (Rec: 07/13/19 12:12 AR [email or web address]) Shoulder Goniometric Range of Motion Shoulder Left Testing Position Sitting Flexion 165 Abduction 105 External Rotation at 0 degrees Abduction 68 Internal Rotation Behind Back (text) unable to reach ASIS without pain or momentum/use of other hand Right Shoulder ROM WFL Yes Shoulder ROM Limitations Shoulder ROM Limitations Muscle Weakness,Pain Comments pain and weakness with abduction PT-OP-L Special Tests Start: 07/12/19 11:08 Freq: Status: Active Protocol: Document 07/13/19 11:24 AR (Rec: 08/14/19 12:12 AR [email or web address]) Special Tests Shoulder Special Tests AC resisted extension Test Results negative Comments challenging to maintain position, but no pain AC Joint Compression Test Results positive Lateral Alek Test Results postive Comments indicative of RTC tear Speed's Biceps Test Results positive Estrada Renan Impingement Test Results positive Neer Impingement Test Results negative PT-OP-M Strength Start: 07/12/19 11:08 Freq: Status: Active Protocol: Document 07/13/19 11:24 AR (Rec: 07/13/19 12:12 AR [email or web address]) Shoulder Strength Shoulder Manual Muscle Testing Left Flexion 4+ Good+ Extension 5 Normal Abduction (C5) 3+ Fair+ External Rotation 3 Fair Internal Rotation 4+ Good+ Right Flexion 5 Normal Extension 5 Normal Abduction (C5) 5 Normal External Rotation 5 Normal Internal Rotation 5 Normal PT-OP-Q Treatments Start: 07/12/19 11:08 Freq: Status: Active Protocol: Document 08/11/19 16:45 [facility] (Rec: 08/11/19 17:33 [facility] [id number]) Therapeutic Exercises Supine Exercises retraction Supine Exercise Name scap retraction Side bilateral Reps/Minutes 10 serratus punch Equipment Used 0#, 1# Reps/Minutes 10x2 Comments verbal and manual cues Sidelying Exercises ER Sidelying Exercise Name L AROM Side left Reps/Minutes 15 Comments focus on scap retraction scap depression Sidelying Exercise Name isometric with manual resistance Side left Reps/Minutes 6x5 sec holds Sitting Exercises cane stretch Sitting Exercise Name AAROM ER Side left Reps/Minutes 5 Comments pt demonstrated good form overhead nadeem Sitting Exercise Name flexion, abd, IR Side bilateral Reps/Minutes 5 mins Comments cues on slow movements & dec UT engagement Standing Exercises ext Standing Exercise Name tbar AAROM Side left Reps/Minutes 10 rows Standing Exercise Name with scap retraction Side bilateral Equipment Used L1 Reps/Minutes 2x10 scap retraction Side bilateral Reps/Minutes 10 x2 Manual Therapy Treatment Soft Tissue Mobilization UT Body Location UT, lev scap Mobilization Type Strumming,Sustained Pressure Intensity/Depth Moderate Body Position Supine Comments muscle guarding, pt cued to breath and relax shoulders. was able to relax after cueing Joint Mobilizations scapula Joint ST Direction medial glides, inf and upward rotation Grade III Body Position Sidelying Comments pt cued to hold at end range to re-educate into new position PT-OP-R Modalities Start: 07/12/19 11:08 Freq: Status: Active Protocol: Document 08/11/19 16:45 [facility] (Rec: 08/11/19 17:33 [facility] [id number]) Hot Pack/Cold Pack Treatment Cold Pack Location left shoulder Patient Position Hooklying Treatment Duration (minutes) 10 Patient Tolerance Good PT-OP-T Assessment and Plan Start: 07/12/19 11:08 Freq: Status: Active Protocol: Document 08/11/19 16:45 AR (Rec: 08/11/19 17:39 AR [email or web address]) Physical Therapy Assessment Goals ROM Impairment decreased and painful ROM Short Term Goal (STG) Pt will improve abduction ROM to at least 140 deg and IR to L5/S1 level w/o pain and with proper scapular mechanics. STG Duration 08/13/2019 Pressure Supervisor Goal (LTG) Pt will demonstrate L shoulder ROM within normal limits to be able to perform daily activities. LTG Duration 09/12/2019 Lifting Impairment pt unable to lift more than 5 lbs Short Term Goal (STG) Pt will be able to lift 5 lbs to 45 deg abd with proper scapular mechanics. STG Duration 08/13/2019 Pressure Supervisor Goal (LTG) Pt will be able to lift 10 lbs without shoulder shrug and with proper scapular mechanics . LTG Duration 09/12/2019 Strength Impairment weakness Short Term Goal (STG) Pt will be compliant with HEP. STG Duration 08/13/19 Pressure Supervisor Goal (LTG) Pt will inc all shoulder MMTs to at least 4/5 to be able to perform daily activities. LTG Duration 09/12/2019 Assessment Summary Assessment Pt was very challenged by scapular positioning exercises today, but was able to acheive adduction and inf glide with upward rotation with multiple manual and verbal cues. Pt was educated on importance of scapular position and stability for functional arm movements. Pt had minimal engagement of middle and lower traps, so further time should be spent re-educating and strengthening these muscles. Physical Therapy Plan Frequency and Duration Frequency of Treatment 2x/Week Duration of Treatment 2 months Plan of Care Start Date 07/13/19 Plan of Care End Date 09/12/19 Next Visit Focus/Plan Next Note Type Treatment Note Next Visit Plan review scapular exercises. AROM sidelying ER with proper scapular placement. serratus punches w 2# weight. scapular mobs w hold at end range. sidelying abd and ER with gentle manual resistance
--- NOTE | 2019-08-15 18:27 | PT.OTN ---
Current Diagnoses Stiffness of left shoulder, not elsewhere classified (08/15/19) Abnormal posture (08/15/19) Weakness (08/15/19) Strain of other muscles, fascia and tendons at shoulder and upper arm level, unspecified arm, initial encounter (08/15/19) Physical Therapy Treatment Note PT-OP-A Visit Information Start: 07/12/19 11:08 Freq: Status: Active Protocol: Document 08/15/19 10:30 AR (Rec: 08/15/19 12:07 AR [email or web address]) Out-Patient Physical Therapy Visit Information Visit Information Visit Type Treatment Note Visit Start Time 10:35 Visit Stop Time 11:30 Total Visit Minutes 55 Visit Number 7 Number of PLATE PUT IN WORKER Visits 0 PT-OP-B Current Condition Start: 07/12/19 11:08 Freq: Status: Active Protocol: Document 07/13/19 11:24 AR (Rec: 07/13/19 12:12 AR [email or web address]) Current Condition History of Current Condition Onset Date 04/21/2019 Current Complaints L shoulder pain, weakness, and dec ROM History of Current Condition Pt reports she re-injured her L shoulder while closing the door of her car. She has suicide doors and her arm got caught in the door and was pulled behind her. She torn her RTC in 2004 and has had shoulder pain and weakness since then. Pt has a hx of MS and has had 3 falls in the past year. She has come to PT previously for balance training and is continuing to do balance and strengthening exercises at home. Pt also has hx of breast cancer and a L mastectomy and she believes that scar tissue may also be contributing to her shoulder pain. She stretches scar tissue daily. Pt is unable to lift anything heavier than 5 pounds and she is unable to turn off a light switch or close a door with her L hand. She has pain into hand and 3rd and 4th digit. She stated that no one can figure out what's wrong with my hand but also reported a dx of trigger finger. Pt has pain in palm of hand when her fingers aren 't working. Pt has a hx of neck pain and had surgery for carpal tunnel syndrome 2 years ago. Prior Treatments and Tests X-ray in 2004 after RTC injury , no fracture. Imaging for recent injury done at [facility] Orthopedics Treatment Goals Patient/Caregiver Goals Be able to use arm normally for lifting, closing doors. Be able to perform yoga stretches without shoulder pain. Personal Factors Other Personal Factors That May Effect Medical hx (MS, fall hx, Therapy/Recovery breast cancer, etc) PT-OP-C Subjective Start: 07/12/19 11:08 Freq: Status: Active Protocol: Document 08/15/19 10:30 AR (Rec: 08/15/19 12:07 AR [email or web address]) OP-PT Subjective Patient Comments Patient Comments Pt is still having trouble reaching behind her back to pull a door closed. She has been compliant with HEP. PT-OP-F Manual Assessment Start: 07/12/19 11:08 Freq: Status: Active Protocol: Document 07/13/19 11:24 AR (Rec: 07/13/19 12:12 AR [email or web address]) Manual Assessments Soft Tissue Assessment Soft Tissue Mobility Assessment Myofascial restrictions in ant & lateral deltoid, biceps, and pectorals. Muscle guarding in upper trapezius Joint Mobility Assessment Joint Mobility Assessment suspected AC joint hypomobility and dysnfunction, but was unable to assess mobility d/t pain and guarding in UT Other Manual Assessments Other Manual Assessments UE Neural Tension tests ( Radial, Median and Ulnar) all negative PT-OP-J Posture/Palpation/Skin Start: 07/12/19 11:08 Freq: Status: Active Protocol: Document 07/13/19 11:24 AR (Rec: 07/13/19 12:12 AR [email or web address]) Posture Evaluation Position Sitting Evaluation View Lateral Head/C-Spine Posture Forward Head Shoulder Posture (L) Rounded,(R) Rounded PT-OP-K Range of Motion Start: 07/12/19 11:08 Freq: Status: Active Protocol: Document 07/13/19 11:24 AR (Rec: 07/13/19 12:12 AR [email or web address]) Shoulder Goniometric Range of Motion Shoulder Left Testing Position Sitting Flexion 165 Abduction 105 External Rotation at 0 degrees Abduction 68 Internal Rotation Behind Back (text) unable to reach ASIS without pain or momentum/use of other hand Right Shoulder ROM WFL Yes Shoulder ROM Limitations Shoulder ROM Limitations Muscle Weakness,Pain Comments pain and weakness with abduction PT-OP-L Special Tests Start: 07/12/19 11:08 Freq: Status: Active Protocol: Document 07/13/19 11:24 AR (Rec: 07/13/19 12:12 AR [email or web address]) Special Tests Shoulder Special Tests AC resisted extension Test Results negative Comments challenging to maintain position, but no pain AC Joint Compression Test Results positive Lateral Alek Test Results postive Comments indicative of RTC tear Speed's Biceps Test Results positive Estrada Renan Impingement Test Results positive Neer Impingement Test Results negative PT-OP-M Strength Start: 07/12/19 11:08 Freq: Status: Active Protocol: Document 07/13/19 11:24 AR (Rec: 07/13/19 12:12 AR [email or web address]) Shoulder Strength Shoulder Manual Muscle Testing Left Flexion 4+ Good+ Extension 5 Normal Abduction (C5) 3+ Fair+ External Rotation 3 Fair Internal Rotation 4+ Good+ Right Flexion 5 Normal Extension 5 Normal Abduction (C5) 5 Normal External Rotation 5 Normal Internal Rotation 5 Normal PT-OP-Q Treatments Start: 07/12/19 11:08 Freq: Status: Active Protocol: Document 08/15/19 10:30 AR (Rec: 08/15/19 13:01 AR [email or web address]) Therapeutic Exercises Supine Exercises retraction Supine Exercise Name scap retraction Side bilateral Reps/Minutes 10 shoulder flex Side left Equipment Used AROM Reps/Minutes 10x Comments pt reported no pain Pec & biceps stretch Supine Exercise Name supine with palm toward ceiling Side left Reps/Minutes 30 sec hold Comments PT supporting UE Sidelying Exercises ER Sidelying Exercise Name L AROM w towel Side left Reps/Minutes 15 Comments focus on maint scap retraction scap depression Sidelying Exercise Name isometric hold with manual cueing Side left Reps/Minutes 6x5 sec holds Sitting Exercises overhead nadeem Sitting Exercise Name flexion, abd Side bilateral Reps/Minutes 6 mins Comments cues on slow movements & dec UT engagement cervical sidebending stretch Sitting Exercise Name C/S SB Side bilateral Reps/Minutes 30 sec hold each side Comments pt cued to relax shoulders, focus on breathing Standing Exercises resisted ext Side bilateral Resistance L1 Equipment Used theraband Reps/Minutes 10 reps resisted ER Standing Exercise Name resisted ER w towel at elbow Side left Resistance L1 Equipment Used theraband Reps/Minutes 10 reps resisted IR Standing Exercise Name resisted IR w towel at elbow Side left Resistance L1 Equipment Used theraband Reps/Minutes 10 reps shoulder IR Standing Exercise Name with cane Side left Reps/Minutes 10 reps Comments pt had difficulty getting into proper position, was ed to use towel at home ext Standing Exercise Name scap depression & shoulder ext w tbar Side left Reps/Minutes 10 Manual Therapy Treatment Soft Tissue Mobilization scalenes Body Location scalenes Mobilization Type Myofascial Release,Strumming Intensity/Depth Moderate Body Position Supine UT Body Location UT, lev scap Mobilization Type Strumming,Sustained Pressure Intensity/Depth Moderate Body Position Supine Comments muscle guarding, pt cued to breath and relax shoulders. was able to relax after cueing Joint Mobilizations 1st rib Joint R 1st rib Direction inf Grade II Body Position Supine Manual Techniques PROM Type PROM abduction Body Location left shoulder Body Position sifelying Comments & attempted isometric holds at 5-15 deg, pt reported pain PT-OP-R Modalities Start: 07/12/19 11:08 Freq: Status: Active Protocol: Document 08/15/19 10:30 AR (Rec: 08/15/19 13:01 AR [email or web address]) Hot Pack/Cold Pack Treatment Cold Pack Location left shoulder Patient Position Hooklying Treatment Duration (minutes) 15 Patient Tolerance Good PT-OP-T Assessment and Plan Start: 07/12/19 11:08 Freq: Status: Active Protocol: Document 08/15/19 10:30 AR (Rec: 08/15/19 13:01 AR [email or web address]) Physical Therapy Assessment Goals ROM Impairment decreased and painful ROM Short Term Goal (STG) Pt will improve abduction ROM to at least 140 deg and IR to L5/S1 level w/o pain and with proper scapular mechanics. STG Duration 08/13/2019 Prison Goal (LTG) Pt will demonstrate L shoulder ROM within normal limits to be able to perform daily activities. LTG Duration 09/12/2019 Lifting Impairment pt unable to lift more than 5 lbs Short Term Goal (STG) Pt will be able to lift 5 lbs to 45 deg abd with proper scapular mechanics. STG Duration 08/13/2019 Log Deck Tender Goal (LTG) Pt will be able to lift 10 lbs without shoulder shrug and with proper scapular mechanics . LTG Duration 09/12/2019 Strength Impairment weakness Short Term Goal (STG) Pt will be compliant with HEP. STG Duration 08/13/19 Prison Goal (LTG) Pt will inc all shoulder MMTs to at least 4/5 to be able to perform daily activities. LTG Duration 09/12/2019 Assessment Summary Assessment Pt was able to demonstrate better scapular stability and positioning today during AAROM exercises. She was able to tolerate inc resistance training exercises and HEP was progressed. Pt still had pain with AROM abduction in sidelying Physical Therapy Plan Frequency and Duration Frequency of Treatment 2x/Week Duration of Treatment 2 months Plan of Care Start Date 07/13/19 Plan of Care End Date 09/12/19 Next Visit Focus/Plan Next Note Type Treatment Note Next Visit Plan review scapular exercises. AROM sidelying ER with proper scapular placement. serratus punches w 2# weight. scapular mobs w hold at end range. sidelying abd and ER with gentle manual resistance [ End ]
--- NOTE | 2019-08-18 12:16 | PT.OTN ---
Current Diagnoses Stiffness of left shoulder, not elsewhere classified (08/18/19) Abnormal posture (08/18/19) Weakness (08/18/19) Strain of other muscles, fascia and tendons at shoulder and upper arm level, unspecified arm, initial encounter (08/18/19) Physical Therapy Treatment Note PT-OP-A Visit Information Start: 07/12/19 11:08 Freq: Status: Active Protocol: Document 08/18/19 11:20 HH (Rec: 08/18/19 12:15 HH [email or web address]) Out-Patient Physical Therapy Visit Information Visit Information Visit Type Treatment Note Visit Start Time 11:20 Visit Stop Time 12:03 Total Visit Minutes 43 Visit Number 8 Number of LAW PROFESSOR Visits 0 PT-OP-B Current Condition Start: 07/12/19 11:08 Freq: Status: Active Protocol: Document 07/13/19 11:24 AR (Rec: 07/13/19 12:12 AR [email or web address]) Current Condition History of Current Condition Onset Date 04/21/2019 Current Complaints L shoulder pain, weakness, and dec ROM History of Current Condition Pt reports she re-injured her L shoulder while closing the door of her car. She has suicide doors and her arm got caught in the door and was pulled behind her. She torn her RTC in 2004 and has had shoulder pain and weakness since then. Pt has a hx of MS and has had 3 falls in the past year. She has come to PT previously for balance training and is continuing to do balance and strengthening exercises at home. Pt also has hx of breast cancer and a L mastectomy and she believes that scar tissue may also be contributing to her shoulder pain. She stretches scar tissue daily. Pt is unable to lift anything heavier than 5 pounds and she is unable to turn off a light switch or close a door with her L hand. She has pain into hand and 3rd and 4th digit. She stated that no one can figure out what's wrong with my hand but also reported a dx of trigger finger. Pt has pain in palm of hand when her fingers aren 't working. Pt has a hx of neck pain and had surgery for carpal tunnel syndrome 2 years ago. Prior Treatments and Tests X-ray in 2004 after RTC injury , no fracture. Imaging for recent injury done at [facility] Treatment Goals Patient/Caregiver Goals Be able to use arm normally for lifting, closing doors. Be able to perform yoga stretches without shoulder pain. Personal Factors Other Personal Factors That May Effect Medical hx (MS, fall hx, Therapy/Recovery breast cancer, etc) PT-OP-C Subjective Start: 07/12/19 11:08 Freq: Status: Active Protocol: Document 08/18/19 11:20 HH (Rec: 08/18/19 12:15 HH [email or web address]) OP-PT Subjective Patient Comments Patient Comments Reaching behind her back is still her primary complaint. She thinks she is getting stronger. Patient Reported Progress Improving PT-OP-F Manual Assessment Start: 07/12/19 11:08 Freq: Status: Active Protocol: Document 07/13/19 11:24 AR (Rec: 07/13/19 12:12 AR [email or web address]) Manual Assessments Soft Tissue Assessment Soft Tissue Mobility Assessment Myofascial restrictions in ant & lateral deltoid, biceps, and pectorals. Muscle guarding in upper trapezius Joint Mobility Assessment Joint Mobility Assessment suspected AC joint hypomobility and dysnfunction, but was unable to assess mobility d/t pain and guarding in [place] Other Manual Assessments Other Manual Assessments UE Neural Tension tests ( Radial, Median and Ulnar) all negative PT-OP-J Posture/Palpation/Skin Start: 07/12/19 11:08 Freq: Status: Active Protocol: Document 07/13/19 11:24 AR (Rec: 07/13/19 12:12 AR [email or web address]) Posture Evaluation Position Sitting Evaluation View Lateral Head/C-Spine Posture Forward Head Shoulder Posture (L) Rounded,(R) Rounded PT-OP-K Range of Motion Start: 07/12/19 11:08 Freq: Status: Active Protocol: Document 07/13/19 11:24 AR (Rec: 07/13/19 12:12 AR [email or web address]) Shoulder Goniometric Range of Motion Shoulder Left Testing Position Sitting Flexion 165 Abduction 105 External Rotation at 0 degrees Abduction 68 Internal Rotation Behind Back (text) unable to reach ASIS without pain or momentum/use of other hand Right Shoulder ROM WFL Yes Shoulder ROM Limitations Shoulder ROM Limitations Muscle Weakness,Pain Comments pain and weakness with abduction PT-OP-L Special Tests Start: 07/12/19 11:08 Freq: Status: Active Protocol: Document 07/13/19 11:24 AR (Rec: 07/13/19 12:12 AR [email or web address]) Special Tests Shoulder Special Tests AC resisted extension Test Results negative Comments challenging to maintain position, but no pain AC Joint Compression Test Results positive Lateral Alek Test Results postive Comments indicative of RTC tear Speed's Biceps Test Results positive Estrada Renan Impingement Test Results positive Neer Impingement Test Results negative PT-OP-M Strength Start: 07/12/19 11:08 Freq: Status: Active Protocol: Document 07/13/19 11:24 AR (Rec: 07/13/19 12:12 AR [email or web address]) Shoulder Strength Shoulder Manual Muscle Testing Left Flexion 4+ Good+ Extension 5 Normal Abduction (C5) 3+ Fair+ External Rotation 3 Fair Internal Rotation 4+ Good+ Right Flexion 5 Normal Extension 5 Normal Abduction (C5) 5 Normal External Rotation 5 Normal Internal Rotation 5 Normal PT-OP-Q Treatments Start: 07/12/19 11:08 Freq: Status: Active Protocol: Document 08/18/19 11:20 HH (Rec: 08/18/19 12:15 HH [email or web address]) Cardio Equipment Upper Body Ergometer (UBE) Duration (Minutes) 5 RPM 60 Other backward pedalling Therapeutic Exercises Sidelying Exercises ER Sidelying Exercise Name L AROM w towel Side left Reps/Minutes 15 Comments focus on maint scap retraction scap depression Sidelying Exercise Name isometric hold with manual cueing Side left Reps/Minutes 8x5 sec holds Standing Exercises resisted ext Side left Resistance L1 Equipment Used theraband Reps/Minutes 10 reps Comments cues on scap retraction ext Standing Exercise Name scap depression & shoulder ext w tbar Side left Reps/Minutes 10 Manual Therapy Treatment Joint Mobilizations scap retraction and depression Grade II Body Position Sidelying Reps/Duration 5 mins Comments movement initiation scapula Joint ST Direction medial glides, inf and upward rotation Grade III Body Position Sidelying Comments pt cued to hold at end range to re-educate into new position PT-OP-R Modalities Start: 07/12/19 11:08 Freq: Status: Active Protocol: Document 08/18/19 11:20 HH (Rec: 08/18/19 12:16 HH [email or web address]) Hot Pack/Cold Pack Treatment Cold Pack Location left shoulder Patient Position Hooklying Treatment Duration (minutes) 9 Patient Tolerance Good PT-OP-T Assessment and Plan Start: 07/12/19 11:08 Freq: Status: Active Protocol: Document 08/18/19 11:20 HH (Rec: 08/18/19 12:15 [email or web address]) Physical Therapy Assessment Goals ROM Impairment decreased and painful ROM Short Term Goal (STG) Pt will improve abduction ROM to at least 140 deg and IR to L5/S1 level w/o pain and with proper scapular mechanics. STG Duration 08/13/2019 Long-Term Goal (LTG) Pt will demonstrate L shoulder ROM within normal limits to be able to perform daily activities. LTG Duration 09/12/2019 Lifting Impairment pt unable to lift more than 5 lbs Short Term Goal (STG) Pt will be able to lift 5 lbs to 45 deg abd with proper scapular mechanics. STG Duration 08/13/2019 Air Valve Repairer Goal (LTG) Pt will be able to lift 10 lbs without shoulder shrug and with proper scapular mechanics . LTG Duration 09/12/2019 Strength Impairment weakness Short Term Goal (STG) Pt will be compliant with HEP. STG Duration 08/13/19 Long-Term Goal (LTG) Pt will inc all shoulder MMTs to at least 4/5 to be able to perform daily activities. LTG Duration 09/12/2019 Assessment Summary Assessment Pt cont to have difficulties engaging L scap depression with retraction during reaching her back. She needed extensive verbal and tactile cues such as reach with your shoulder blade to back pocket . tx focused on manual therapy and assisted scap movements today who is able to reach with her L thumb at T3- T4 at the end of session with decreased shoulder pain. Physical Therapy Plan Next Visit Focus/Plan Next Note Type Treatment Note Next Visit Plan Cont end range strengthening for ER/IR review scap ex AROM sidelying ER with proper scapular placement. serratus punches w 2# weight. scapular mobs w hold at end range. sidelying abd and ER with gentle manual resistance
--- NOTE | 2019-08-22 17:17 | PT.OTN ---
Current Diagnoses Stiffness of left shoulder, not elsewhere classified (08/22/19) Abnormal posture (08/22/19) Weakness (08/22/19) Strain of other muscles, fascia and tendons at shoulder and upper arm level, unspecified arm, initial encounter (08/22/19) Physical Therapy Treatment Note PT-OP-A Visit Information Start: 07/12/19 11:08 Freq: Status: Active Protocol: Document 08/22/19 14:31 SAK (Rec: 08/22/19 15:15 SAK [id number]) Out-Patient Physical Therapy Visit Information Visit Information Visit Type Treatment Note Visit Start Time 14:31 Visit Stop Time 16:11 Total Visit Minutes 50 Visit Number 9 Number of COPY LATHE TENDER Visits 0 PT-OP-B Current Condition Start: 07/12/19 11:08 Freq: Status: Active Protocol: Document 07/13/19 11:24 AR (Rec: 07/13/19 12:12 AR [email or web address]) Current Condition History of Current Condition Onset Date 04/21/2019 Current Complaints L shoulder pain, weakness, and dec ROM History of Current Condition Pt reports she re-injured her L shoulder while closing the door of her car. She has suicide doors and her arm got caught in the door and was pulled behind her. She torn her RTC in 2004 and has had shoulder pain and weakness since then. Pt has a hx of MS and has had 3 falls in the past year. She has come to PT previously for balance training and is continuing to do balance and strengthening exercises at home. Pt also has hx of breast cancer and a L mastectomy and she believes that scar tissue may also be contributing to her shoulder pain. She stretches scar tissue daily. Pt is unable to lift anything heavier than 5 pounds and she is unable to turn off a light switch or close a door with her L hand. She has pain into hand and 3rd and 4th digit. She stated that no one can figure out what's wrong with my hand but also reported a dx of trigger finger. Pt has pain in palm of hand when her fingers aren 't working. Pt has a hx of neck pain and had surgery for carpal tunnel syndrome 2 years ago. Prior Treatments and Tests X-ray in 2004 after RTC injury , no fracture. Imaging for recent injury done at [facility] Treatment Goals Patient/Caregiver Goals Be able to use arm normally for lifting, closing doors. Be able to perform yoga stretches without shoulder pain. Personal Factors Other Personal Factors That May Effect Medical hx (MS, fall hx, Therapy/Recovery breast cancer, etc) PT-OP-C Subjective Start: 07/12/19 11:08 Freq: Status: Active Protocol: Document 08/22/19 14:31 SAK (Rec: 08/22/19 15:15 SAK [id number]) OP-PT Subjective Patient Comments Patient Comments Reaching behind back most difficult. Trying to do HEP, has hard time knowing if moving shoulder blade correctly. Patient Reported Progress Improving PT-OP-F Manual Assessment Start: 07/12/19 11:08 Freq: Status: Active Protocol: Document 07/13/19 11:24 AR (Rec: 07/13/19 12:12 AR [email or web address]) Manual Assessments Soft Tissue Assessment Soft Tissue Mobility Assessment Myofascial restrictions in ant & lateral deltoid, biceps, and pectorals. Muscle guarding in upper trapezius Joint Mobility Assessment Joint Mobility Assessment suspected AC joint hypomobility and dysnfunction, but was unable to assess mobility d/t pain and guarding in [place] Other Manual Assessments Other Manual Assessments UE Neural Tension tests ( Radial, Median and Ulnar) all negative PT-OP-J Posture/Palpation/Skin Start: 07/12/19 11:08 Freq: Status: Active Protocol: Document 07/13/19 11:24 AR (Rec: 07/13/19 12:12 AR [email or web address]) Posture Evaluation Position Sitting Evaluation View Lateral Head/C-Spine Posture Forward Head Shoulder Posture (L) Rounded,(R) Rounded PT-OP-K Range of Motion Start: 07/12/19 11:08 Freq: Status: Active Protocol: Document 07/13/19 11:24 AR (Rec: 07/13/19 12:12 AR [email or web address]) Shoulder Goniometric Range of Motion Shoulder Left Testing Position Sitting Flexion 165 Abduction 105 External Rotation at 0 degrees Abduction 68 Internal Rotation Behind Back (text) unable to reach ASIS without pain or momentum/use of other hand Right Shoulder ROM WFL Yes Shoulder ROM Limitations Shoulder ROM Limitations Muscle Weakness,Pain Comments pain and weakness with abduction PT-OP-L Special Tests Start: 07/12/19 11:08 Freq: Status: Active Protocol: Document 07/13/19 11:24 AR (Rec: 07/13/19 12:12 AR [email or web address]) Special Tests Shoulder Special Tests AC resisted extension Test Results negative Comments challenging to maintain position, but no pain AC Joint Compression Test Results positive Lateral Alek Test Results postive Comments indicative of RTC tear Speed's Biceps Test Results positive Estrada Renan Impingement Test Results positive Neer Impingement Test Results negative PT-OP-M Strength Start: 07/12/19 11:08 Freq: Status: Active Protocol: Document 07/13/19 11:24 AR (Rec: 07/13/19 12:12 AR [email or web address]) Shoulder Strength Shoulder Manual Muscle Testing Left Flexion 4+ Good+ Extension 5 Normal Abduction (C5) 3+ Fair+ External Rotation 3 Fair Internal Rotation 4+ Good+ Right Flexion 5 Normal Extension 5 Normal Abduction (C5) 5 Normal External Rotation 5 Normal Internal Rotation 5 Normal PT-OP-Q Treatments Start: 07/12/19 11:08 Freq: Status: Active Protocol: Document 08/22/19 14:31 SAK (Rec: 08/22/19 15:15 SAK [id number]) Cardio Equipment Upper Body Ergometer (UBE) Duration (Minutes) 5 RPM 60 Other backward pedalling Therapeutic Exercises Supine Exercises shoulder IR/ER Reps/Minutes 10x Comments in scapular plane AAROM serratus punch Equipment Used 2# Reps/Minutes 10x2 Comments verbal and manual cues Pec & biceps stretch Supine Exercise Name supine with palm toward ceiling Side left Reps/Minutes 30 sec hold Sidelying Exercises shoulder abd Reps/Minutes 10x Comments AAROM with manual scapular facil ER Sidelying Exercise Name L AROM w towel Side left Reps/Minutes 15 Comments focus on maint scap retraction scap depression Sidelying Exercise Name isometric hold with manual cueing Side left Reps/Minutes 8x5 sec holds Standing Exercises resisted ext Side left Resistance L1 Equipment Used theraband Reps/Minutes 10 reps Comments cues on scap retraction shoulder IR Standing Exercise Name with cane Side left Reps/Minutes 10 reps Comments verbal and manual scapular facilitation ext Standing Exercise Name scap depression & shoulder ext w tbar Side left Reps/Minutes 10 Manual Therapy Treatment Joint Mobilizations scap retraction and depression Grade II Body Position Sidelying Reps/Duration 5 mins Comments movement initiation scapula Joint ST Direction medial glides, inf and upward rotation Grade III Body Position Sidelying Comments pt cued to hold at end range to re-educate into new position PT-OP-R Modalities Start: 07/12/19 11:08 Freq: Status: Active Protocol: Document 08/22/19 14:31 [facility] (Rec: 08/22/19 15:15 [facility] [id number]) Hot Pack/Cold Pack Treatment Cold Pack Location left shoulder Patient Position Hooklying Treatment Duration (minutes) 9 Patient Tolerance Good PT-OP-T Assessment and Plan Start: 07/12/19 11:08 Freq: Status: Active Protocol: Document 08/22/19 14:31 [facility] (Rec: 08/22/19 15:15 [facility] [id number]) Physical Therapy Assessment Goals ROM Impairment decreased and painful ROM Short Term Goal (STG) Pt will improve abduction ROM to at least 140 deg and IR to L5/S1 level w/o pain and with proper scapular mechanics. STG Duration 08/13/2019 Felt Hat Flanging Operator Goal (LTG) Pt will demonstrate L shoulder ROM within normal limits to be able to perform daily activities. LTG Duration 09/12/2019 Lifting Impairment pt unable to lift more than 5 lbs Short Term Goal (STG) Pt will be able to lift 5 lbs to 45 deg abd with proper scapular mechanics. STG Duration 08/13/2019 Retirement Goal (LTG) Pt will be able to lift 10 lbs without shoulder shrug and with proper scapular mechanics . LTG Duration 09/12/2019 Strength Impairment weakness Short Term Goal (STG) Pt will be compliant with HEP. STG Duration 08/13/19 Retirement Goal (LTG) Pt will inc all shoulder MMTs to at least 4/5 to be able to perform daily activities. LTG Duration 09/12/2019 Assessment Summary Assessment Patient requires extensive verbal and tactile cues for correct left scapular movement and stabilization. Overall demonstrating improvements in ROM and functional activity tolerance with reaching behind her back remaining the most difficult. Physical Therapy Plan Frequency and Duration Frequency of Treatment 2x/Week Duration of Treatment 2 months Plan of Care Start Date 07/13/19 Plan of Care End Date 09/12/19 Next Visit Focus/Plan Next Note Type Treatment Note Next Visit Plan Continue progressive left shoulder ROM and strengthening with emphasis on correct scapulo-humeral rhythm and stabilization.
--- NOTE | 2019-08-25 12:10 | PT.OTN ---
Current Diagnoses Stiffness of left shoulder, not elsewhere classified (08/25/19) Abnormal posture (08/25/19) Weakness (08/25/19) Strain of other muscles, fascia and tendons at shoulder and upper arm level, unspecified arm, initial encounter (08/25/19) Physical Therapy Treatment Note PT-OP-A Visit Information Start: 07/12/19 11:08 Freq: Status: Active Protocol: Document 08/25/19 11:16 [facility] (Rec: 08/25/19 12:09 [facility] [id number]) Out-Patient Physical Therapy Visit Information Visit Information Visit Type Treatment Note Visit Start Time 11:17 Visit Stop Time 12:07 Total Visit Minutes 50 Visit Number 10 Number of SPRING INTERN Visits 0 PT-OP-B Current Condition Start: 07/12/19 11:08 Freq: Status: Active Protocol: Document 07/13/19 11:24 AR (Rec: 07/13/19 12:12 AR [email or web address]) Current Condition History of Current Condition Onset Date 04/21/2019 Current Complaints L shoulder pain, weakness, and dec ROM History of Current Condition Pt reports she re-injured her L shoulder while closing the door of her car. She has suicide doors and her arm got caught in the door and was pulled behind her. She torn her RTC in 2004 and has had shoulder pain and weakness since then. Pt has a hx of MS and has had 3 falls in the past year. She has come to PT previously for balance training and is continuing to do balance and strengthening exercises at home. Pt also has hx of breast cancer and a L mastectomy and she believes that scar tissue may also be contributing to her shoulder pain. She stretches scar tissue daily. Pt is unable to lift anything heavier than 5 pounds and she is unable to turn off a light switch or close a door with her L hand. She has pain into hand and 3rd and 4th digit. She stated that no one can figure out what's wrong with my hand but also reported a dx of trigger finger. Pt has pain in palm of hand when her fingers aren 't working. Pt has a hx of neck pain and had surgery for carpal tunnel syndrome 2 years ago. Prior Treatments and Tests X-ray in 2004 after RTC injury , no fracture. Imaging for recent injury done at [facility] Orth[facility] Treatment Goals Patient/Caregiver Goals Be able to use arm normally for lifting, closing doors. Be able to perform yoga stretches without shoulder pain. Personal Factors Other Personal Factors That May Effect Medical hx (MS, fall hx, Therapy/Recovery breast cancer, etc) PT-OP-C Subjective Start: 07/12/19 11:08 Freq: Status: Active Protocol: Document 08/25/19 11:16 [facility] (Rec: 08/25/19 12:09 [facility] [id number]) OP-PT Subjective Patient Comments Patient Comments Pt reports she has most difficulty with behind back motion Patient Reported Progress Improving PT-OP-F Manual Assessment Start: 07/12/19 11:08 Freq: Status: Active Protocol: Document 07/13/19 11:24 AR (Rec: 07/13/19 12:12 AR [email or web address]) Manual Assessments Soft Tissue Assessment Soft Tissue Mobility Assessment Myofascial restrictions in ant & lateral deltoid, biceps, and pectorals. Muscle guarding in upper trapezius Joint Mobility Assessment Joint Mobility Assessment suspected AC joint hypomobility and dysnfunction, but was unable to assess mobility d/t pain and guarding in [place] Other Manual Assessments Other Manual Assessments UE Neural Tension tests ( Radial, Median and Ulnar) all negative PT-OP-J Posture/Palpation/Skin Start: 07/12/19 11:08 Freq: Status: Active Protocol: Document 07/13/19 11:24 AR (Rec: 07/13/19 12:12 AR [email or web address]) Posture Evaluation Position Sitting Evaluation View Lateral Head/C-Spine Posture Forward Head Shoulder Posture (L) Rounded,(R) Rounded PT-OP-K Range of Motion Start: 07/12/19 11:08 Freq: Status: Active Protocol: Document 07/13/19 11:24 AR (Rec: 07/13/19 12:12 AR [email or web address]) Shoulder Goniometric Range of Motion Shoulder Left Testing Position Sitting Flexion 165 Abduction 105 External Rotation at 0 degrees Abduction 68 Internal Rotation Behind Back (text) unable to reach ASIS without pain or momentum/use of other hand Right Shoulder ROM WFL Yes Shoulder ROM Limitations Shoulder ROM Limitations Muscle Weakness,Pain Comments pain and weakness with abduction PT-OP-L Special Tests Start: 07/12/19 11:08 Freq: Status: Active Protocol: Document 07/13/19 11:24 AR (Rec: 07/13/19 12:12 AR [email or web address]) Special Tests Shoulder Special Tests AC resisted extension Test Results negative Comments challenging to maintain position, but no pain AC Joint Compression Test Results positive Lateral Alek Test Results postive Comments indicative of RTC tear Speed's Biceps Test Results positive Estrada Renan Impingement Test Results positive Neer Impingement Test Results negative PT-OP-M Strength Start: 07/12/19 11:08 Freq: Status: Active Protocol: Document 07/13/19 11:24 AR (Rec: 07/13/19 12:12 AR [email or web address]) Shoulder Strength Shoulder Manual Muscle Testing Left Flexion 4+ Good+ Extension 5 Normal Abduction (C5) 3+ Fair+ External Rotation 3 Fair Internal Rotation 4+ Good+ Right Flexion 5 Normal Extension 5 Normal Abduction (C5) 5 Normal External Rotation 5 Normal Internal Rotation 5 Normal PT-OP-Q Treatments Start: 07/12/19 11:08 Freq: Status: Active Protocol: Document 08/25/19 11:16 [facility] (Rec: 08/25/19 12:09 [facility] [id number]) Cardio Equipment Upper Body Ergometer (UBE) Duration (Minutes) 3 RPM 60 Other backward pedalling Therapeutic Exercises Supine Exercises IR Supine Exercise Name at about 80 deg abd Side left Reps/Minutes 10 shoulder IR/ER Supine Exercise Name at 45 deg abd Reps/Minutes 15 Comments AAROM w/tbar Prone Exercises ER Prone Exercise Name attempted 90/90 ER but painful so stopped scaption Prone Exercise Name overball Side bilateral Reps/Minutes 15 ext Prone Exercise Name overtball Side bilateral Reps/Minutes 15 HAbd Prone Exercise Name overtball Side bilateral Reps/Minutes 15 Manual Therapy Treatment Joint Mobilizations GH Joint L Direction inf & post glides FM PT-OP-R Modalities Start: 07/12/19 11:08 Freq: Status: Active Protocol: Document 08/25/19 11:16 [facility] (Rec: 08/25/19 12:09 [facility] [id number]) Hot Pack/Cold Pack Treatment Cold Pack Location left shoulder Patient Position Hooklying Treatment Duration (minutes) 10 Patient Tolerance Good PT-OP-T Assessment and Plan Start: 07/12/19 11:08 Freq: Status: Active Protocol: Document 08/25/19 11:16 [facility] (Rec: 08/25/19 12:09 [facility] [id number]) Physical Therapy Assessment Goals ROM Impairment decreased and painful ROM Short Term Goal (STG) Pt will improve abduction ROM to at least 140 deg and IR to L5/S1 level w/o pain and with proper scapular mechanics. STG Duration 08/13/2019 Long-Term Goal (LTG) Pt will demonstrate L shoulder ROM within normal limits to be able to perform daily activities. LTG Duration 09/12/2019 Lifting Impairment pt unable to lift more than 5 lbs Short Term Goal (STG) Pt will be able to lift 5 lbs to 45 deg abd with proper scapular mechanics. STG Duration 08/13/2019 Long-Term Goal (LTG) Pt will be able to lift 10 lbs without shoulder shrug and with proper scapular mechanics . LTG Duration 09/12/2019 Strength Impairment weakness Short Term Goal (STG) Pt will be compliant with HEP. STG Duration 08/13/19 Long-Term Goal (LTG) Pt will inc all shoulder MMTs to at least 4/5 to be able to perform daily activities. LTG Duration 09/12/2019 Assessment Summary Assessment Pt was able to tolerate progressive strengthening and AROM execises. She cont to require cueing for scapular movmeent. She was able to be put into position for hands on her hips passively but unable to maintain it actively . Physical Therapy Plan Frequency and Duration Frequency of Treatment 2x/Week Duration of Treatment 2 months Plan of Care Start Date 07/13/19 Plan of Care End Date 09/12/19 Next Visit Focus/Plan Next Note Type Treatment Note Next Visit Plan Cont to work on scap stabilization for scapulo- humeral rhythm
--- NOTE | 2019-08-30 16:55 | PT.OTN ---
Current Diagnoses Stiffness of left shoulder, not elsewhere classified (08/30/19) Abnormal posture (08/30/19) Weakness (08/30/19) Strain of other muscles, fascia and tendons at shoulder and upper arm level, unspecified arm, initial encounter (08/30/19) Physical Therapy Treatment Note PT-OP-A Visit Information Start: 07/12/19 11:08 Freq: Status: Active Protocol: Document 08/30/19 16:04 [facility] (Rec: 08/30/19 16:44 [facility] [id number]) Out-Patient Physical Therapy Visit Information Visit Information Visit Type Treatment Note Visit Start Time 16:00 Visit Stop Time 16:45 Total Visit Minutes 45 Visit Number 11 Number of SURGICAL GARMENT INSPECTOR Visits 0 PT-OP-B Current Condition Start: 07/12/19 11:08 Freq: Status: Active Protocol: Document 07/13/19 11:24 [facility] (Rec: 07/13/19 12:12 AR [email or web address]) Current Condition History of Current Condition Onset Date 04/21/2019 Current Complaints L shoulder pain, weakness, and dec ROM History of Current Condition Pt reports she re-injured her L shoulder while closing the door of her car. She has suicide doors and her arm got caught in the door and was pulled behind her. She torn her RTC in 2004 and has had shoulder pain and weakness since then. Pt has a hx of MS and has had 3 falls in the past year. She has come to PT previously for balance training and is continuing to do balance and strengthening exercises at home. Pt also has hx of breast cancer and a L mastectomy and she believes that scar tissue may also be contributing to her shoulder pain. She stretches scar tissue daily. Pt is unable to lift anything heavier than 5 pounds and she is unable to turn off a light switch or close a door with her L hand. She has pain into hand and 3rd and 4th digit. She stated that no one can figure out what's wrong with my hand but also reported a dx of trigger finger. Pt has pain in palm of hand when her fingers aren 't working. Pt has a hx of neck pain and had surgery for carpal tunnel syndrome 2 years ago. Prior Treatments and Tests X-ray in 2004 after RTC injury , no fracture. Imaging for recent injury done at [facility] Orthopedics Treatment Goals Patient/Caregiver Goals Be able to use arm normally for lifting, closing doors. Be able to perform yoga stretches without shoulder pain. Personal Factors Other Personal Factors That May Effect Medical hx (MS, fall hx, Therapy/Recovery breast cancer, etc) PT-OP-C Subjective Start: 07/12/19 11:08 Freq: Status: Active Protocol: Document 08/30/19 16:04 [facility] (Rec: 08/30/19 16:44 [facility] [id number]) OP-PT Subjective Patient Comments Patient Comments pt reports she is about 50% better but still reaching behind her back is sore to do. PT-OP-F Manual Assessment Start: 07/12/19 11:08 Freq: Status: Active Protocol: Document 07/13/19 11:24 [facility] (Rec: 07/13/19 12:12 AR [email or web address]) Manual Assessments Soft Tissue Assessment Soft Tissue Mobility Assessment Myofascial restrictions in ant & lateral deltoid, biceps, and pectorals. Muscle guarding in upper trapezius Joint Mobility Assessment Joint Mobility Assessment suspected AC joint hypomobility and dysnfunction, but was unable to assess mobility d/t pain and guarding in [place] Other Manual Assessments Other Manual Assessments UE Neural Tension tests ( Radial, Median and Ulnar) all negative PT-OP-J Posture/Palpation/Skin Start: 07/12/19 11:08 Freq: Status: Active Protocol: Document 07/13/19 11:24 [facility] (Rec: 07/13/19 12:12 [facility] [email or web address]) Posture Evaluation Position Sitting Evaluation View Lateral Head/C-Spine Posture Forward Head Shoulder Posture (L) Rounded,(R) Rounded PT-OP-K Range of Motion Start: 07/12/19 11:08 Freq: Status: Active Protocol: Document 07/13/19 11:24 [facility] (Rec: 07/13/19 12:12 AR [email or web address]) Shoulder Goniometric Range of Motion Shoulder Left Testing Position Sitting Flexion 165 Abduction 105 External Rotation at 0 degrees Abduction 68 Internal Rotation Behind Back (text) unable to reach ASIS without pain or momentum/use of other hand Right Shoulder ROM WFL Yes Shoulder ROM Limitations Shoulder ROM Limitations Muscle Weakness,Pain Comments pain and weakness with abduction PT-OP-L Special Tests Start: 07/12/19 11:08 Freq: Status: Active Protocol: Document 07/13/19 11:24 [facility] (Rec: 07/13/19 12:12 AR [email or web address]) Special Tests Shoulder Special Tests AC resisted extension Test Results negative Comments challenging to maintain position, but no pain AC Joint Compression Test Results positive Lateral Alek Test Results postive Comments indicative of RTC tear Speed's Biceps Test Results positive Estrada Renan Impingement Test Results positive Neer Impingement Test Results negative PT-OP-M Strength Start: 07/12/19 11:08 Freq: Status: Active Protocol: Document 07/13/19 11:24 [facility] (Rec: 07/13/19 12:12 AR [email or web address]) Shoulder Strength Shoulder Manual Muscle Testing Left Flexion 4+ Good+ Extension 5 Normal Abduction (C5) 3+ Fair+ External Rotation 3 Fair Internal Rotation 4+ Good+ Right Flexion 5 Normal Extension 5 Normal Abduction (C5) 5 Normal External Rotation 5 Normal Internal Rotation 5 Normal PT-OP-Q Treatments Start: 07/12/19 11:08 Freq: Status: Active Protocol: Document 08/30/19 16:04 [facility] (Rec: 08/30/19 16:44 [facility] [id number]) Cardio Equipment Upper Body Ergometer (UBE) Duration (Minutes) 3 RPM 60 Other backward pedalling Therapeutic Exercises Sidelying Exercises shoulder abd Reps/Minutes 10x Comments AAROM with manual scapular facil ER Sidelying Exercise Name L AROM w towel Side left Reps/Minutes 15 Comments focus on maint scap retraction Sitting Exercises bicep curl Resistance 2# Reps/Minutes 2 x 10x Standing Exercises resisted ext Side left Resistance L1 Equipment Used theraband Reps/Minutes 10 reps Comments cues on scap retraction resisted ER Standing Exercise Name resisted ER w towel at elbow Side left Resistance L1 Equipment Used theraband Reps/Minutes 10 reps resisted IR Standing Exercise Name resisted IR w towel at elbow Side left Resistance L1 Equipment Used theraband Reps/Minutes 10 reps shoulder IR Standing Exercise Name with cane Side left Reps/Minutes 10 reps Comments verbal and manual scapular facilitation ext Standing Exercise Name scap depression & shoulder ext w tbar Side left Reps/Minutes 10 rows Standing Exercise Name with scap retraction Side bilateral Equipment Used L1 Reps/Minutes 2x10 scap retraction Side bilateral Reps/Minutes 10 x2 wall climb Standing Exercise Name flexion Side left Equipment Used wall Reps/Minutes 5 x 2 PT-OP-R Modalities Start: 07/12/19 11:08 Freq: Status: Active Protocol: Document 08/30/19 16:04 [facility] (Rec: 08/30/19 16:44 [facility] [id number]) Hot Pack/Cold Pack Treatment Cold Pack Location left shoulder Patient Position Hooklying Treatment Duration (minutes) 10 Patient Tolerance Good PT-OP-T Assessment and Plan Start: 07/12/19 11:08 Freq: Status: Active Protocol: Document 08/30/19 16:51 [facility] (Rec: 08/30/19 16:55 [facility] [id number]) Physical Therapy Assessment Assessment Summary Assessment pain with end range ER both with AAROM and resisted ER tolerated all other exercises well today. Physical Therapy Plan Frequency and Duration Frequency of Treatment 2x/Week Duration of Treatment 2 months Plan of Care Start Date 07/13/19 Plan of Care End Date 09/12/19 Next Visit Focus/Plan Next Note Type Treatment Note Next Visit Plan Cont to work on scap stabilization and rotator cuff strengthening as well as thoracic extension
--- NOTE | 2019-09-06 15:51 | PT.OTN ---
Current Diagnoses Stiffness of left shoulder, not elsewhere classified (09/06/19) Abnormal posture (09/06/19) Weakness (09/06/19) Strain of other muscles, fascia and tendons at shoulder and upper arm level, unspecified arm, initial encounter (09/06/19) Physical Therapy Treatment Note PT-OP-A Visit Information Start: 07/12/19 11:08 Freq: Status: Active Protocol: Document 09/06/19 15:37 [facility] (Rec: 09/06/19 15:41 [facility] [id number]) Out-Patient Physical Therapy Visit Information Visit Information Visit Type Treatment Note Visit Start Time 14:30 Visit Stop Time 13:20 Total Visit Minutes 50 Visit Number 12 Number of EMPLOYEE'S REPRESENTATIVE Visits 0 PT-OP-B Current Condition Start: 07/12/19 11:08 Freq: Status: Active Protocol: Document 07/13/19 11:24 [facility] (Rec: 07/13/19 12:12 AR [email or web address]) Current Condition History of Current Condition Onset Date 04/21/2019 Current Complaints L shoulder pain, weakness, and dec ROM History of Current Condition Pt reports she re-injured her L shoulder while closing the door of her car. She has suicide doors and her arm got caught in the door and was pulled behind her. She torn her RTC in 2004 and has had shoulder pain and weakness since then. Pt has a hx of MS and has had 3 falls in the past year. She has come to PT previously for balance training and is continuing to do balance and strengthening exercises at home. Pt also has hx of breast cancer and a L mastectomy and she believes that scar tissue may also be contributing to her shoulder pain. She stretches scar tissue daily. Pt is unable to lift anything heavier than 5 pounds and she is unable to turn off a light switch or close a door with her L hand. She has pain into hand and 3rd and 4th digit. She stated that no one can figure out what's wrong with my hand but also reported a dx of trigger finger. Pt has pain in palm of hand when her fingers aren 't working. Pt has a hx of neck pain and had surgery for carpal tunnel syndrome 2 years ago. Prior Treatments and Tests X-ray in 2004 after RTC injury , no fracture. Imaging for recent injury done at [facility] Orthoped[facility] Treatment Goals Patient/Caregiver Goals Be able to use arm normally for lifting, closing doors. Be able to perform yoga stretches without shoulder pain. Personal Factors Other Personal Factors That May Effect Medical hx (MS, fall hx, Therapy/Recovery breast cancer, etc) PT-OP-C Subjective Start: 07/12/19 11:08 Freq: Status: Active Protocol: Document 09/06/19 14:30 [facility] (Rec: 09/06/19 15:11 [facility] [id number]) OP-PT Subjective Patient Comments Patient Comments Pt states that she is doing a lot better. She is able to do more with her left arm that she has not been able to do. This includes reaching across her body. Patient Reported Progress Improving PT-OP-F Manual Assessment Start: 07/12/19 11:08 Freq: Status: Active Protocol: Document 07/13/19 11:24 [facility] (Rec: 07/13/19 12:12 AR [email or web address]) Manual Assessments Soft Tissue Assessment Soft Tissue Mobility Assessment Myofascial restrictions in ant & lateral deltoid, biceps, and pectorals. Muscle guarding in upper trapezius Joint Mobility Assessment Joint Mobility Assessment suspected AC joint hypomobility and dysnfunction, but was unable to assess mobility d/t pain and guarding in [place] Other Manual Assessments Other Manual Assessments UE Neural Tension tests ( Radial, Median and Ulnar) all negative PT-OP-J Posture/Palpation/Skin Start: 07/12/19 11:08 Freq: Status: Active Protocol: Document 07/13/19 11:24 [facility] (Rec: 07/13/19 12:12 AR [email or web address]) Posture Evaluation Position Sitting Evaluation View Lateral Head/C-Spine Posture Forward Head Shoulder Posture (L) Rounded,(R) Rounded PT-OP-K Range of Motion Start: 07/12/19 11:08 Freq: Status: Active Protocol: Document 07/13/19 11:24 [facility] (Rec: 07/13/19 12:12 AR [email or web address]) Shoulder Goniometric Range of Motion Shoulder Left Testing Position Sitting Flexion 165 Abduction 105 External Rotation at 0 degrees Abduction 68 Internal Rotation Behind Back (text) unable to reach ASIS without pain or momentum/use of other hand Right Shoulder ROM WFL Yes Shoulder ROM Limitations Shoulder ROM Limitations Muscle Weakness,Pain Comments pain and weakness with abduction PT-OP-L Special Tests Start: 07/12/19 11:08 Freq: Status: Active Protocol: Document 07/13/19 11:24 [facility] (Rec: 07/13/19 12:12 AR [email or web address]) Special Tests Shoulder Special Tests AC resisted extension Test Results negative Comments challenging to maintain position, but no pain AC Joint Compression Test Results positive Lateral Alek Test Results postive Comments indicative of RTC tear Speed's Biceps Test Results positive Estrada Renan Impingement Test Results positive Neer Impingement Test Results negative PT-OP-M Strength Start: 07/12/19 11:08 Freq: Status: Active Protocol: Document 07/13/19 11:24 [facility] (Rec: 07/13/19 12:12 AR [email or web address]) Shoulder Strength Shoulder Manual Muscle Testing Left Flexion 4+ Good+ Extension 5 Normal Abduction (C5) 3+ Fair+ External Rotation 3 Fair Internal Rotation 4+ Good+ Right Flexion 5 Normal Extension 5 Normal Abduction (C5) 5 Normal External Rotation 5 Normal Internal Rotation 5 Normal PT-OP-Q Treatments Start: 07/12/19 11:08 Freq: Status: Active Protocol: Document 09/06/19 14:30 MB (Rec: 09/06/19 15:11 MB [id number]) Cardio Equipment Upper Body Ergometer (UBE) Duration (Minutes) 3 RPM 60 Other backward pedalling Manual Therapy Treatment Other Other Manual Treatments Counterstrain to improve lymphatic and fascial mobility , focusing on thoracic and rib area, very gentle MWM left pect with PT performing gentle trigger point palpation and PROM ER in hook lying PT-OP-R Modalities Start: 07/12/19 11:08 Freq: Status: Active Protocol: Document 09/06/19 15:37 MB (Rec: 09/06/19 15:41 MB [id number]) Hot Pack/Cold Pack Treatment Cold Pack Location left shoulder Patient Position Hooklying Treatment Duration (minutes) 10 Patient Tolerance Good PT-OP-T Assessment and Plan Start: 07/12/19 11:08 Freq: Status: Active Protocol: Document 09/06/19 14:30 MB (Rec: 09/06/19 15:51 MB [id number]) Physical Therapy Assessment Assessment Summary Assessment Initiated lymphatic and thoracic work this date, very gentle. Pt will benefit from further thoracic mobility. Physical Therapy Plan Frequency and Duration Frequency of Treatment 2x/Week Duration of Treatment 2 months Plan of Care Start Date 07/13/19 Plan of Care End Date 09/12/19 Next Visit Focus/Plan Next Note Type Treatment Note Next Visit Plan Consider further thoracic mobility, thread the needle open book
--- NOTE | 2019-09-09 15:11 | PT.OTN ---
Current Diagnoses Stiffness of left shoulder, not elsewhere classified (09/09/19) Abnormal posture (09/09/19) Weakness (09/09/19) Strain of other muscles, fascia and tendons at shoulder and upper arm level, unspecified arm, initial encounter (09/09/19) Physical Therapy Treatment Note PT-OP-A Visit Information Start: 07/12/19 11:08 Freq: Status: Active Protocol: Document 09/09/19 14:31 MB (Rec: 09/09/19 14:37 MB [id number]) Out-Patient Physical Therapy Visit Information Visit Information Visit Type Treatment Note Visit Start Time 14:31 Visit Stop Time 15:10 Total Visit Minutes 38 Visit Number 13/45 Number of DUE DILIGENCE COORDINATOR Visits 0 PT-OP-B Current Condition Start: 07/12/19 11:08 Freq: Status: Active Protocol: Document 07/13/19 11:24 AR (Rec: 07/13/19 12:12 AR [email or web address]) Current Condition History of Current Condition Onset Date 04/21/2019 Current Complaints L shoulder pain, weakness, and dec ROM History of Current Condition Pt reports she re-injured her L shoulder while closing the door of her car. She has suicide doors and her arm got caught in the door and was pulled behind her. She torn her RTC in 2004 and has had shoulder pain and weakness since then. Pt has a hx of MS and has had 3 falls in the past year. She has come to PT previously for balance training and is continuing to do balance and strengthening exercises at home. Pt also has hx of breast cancer and a L mastectomy and she believes that scar tissue may also be contributing to her shoulder pain. She stretches scar tissue daily. Pt is unable to lift anything heavier than 5 pounds and she is unable to turn off a light switch or close a door with her L hand. She has pain into hand and 3rd and 4th digit. She stated that no one can figure out what's wrong with my hand but also reported a dx of trigger finger. Pt has pain in palm of hand when her fingers aren 't working. Pt has a hx of neck pain and had surgery for carpal tunnel syndrome 2 years ago. Prior Treatments and Tests X-ray in 2004 after RTC injury , no fracture. Imaging for recent injury done at [facility] Orthopedics Treatment Goals Patient/Caregiver Goals Be able to use arm normally for lifting, closing doors. Be able to perform yoga stretches without shoulder pain. Personal Factors Other Personal Factors That May Effect Medical hx (MS, fall hx, Therapy/Recovery breast cancer, etc) PT-OP-C Subjective Start: 07/12/19 11:08 Freq: Status: Active Protocol: Document 09/09/19 14:31 MB (Rec: 09/09/19 14:37 MB [id number]) OP-PT Subjective Patient Comments Patient Comments Pt would like an exercise to help the outside of her upper arm. PT-OP-F Manual Assessment Start: 07/12/19 11:08 Freq: Status: Active Protocol: Document 07/13/19 11:24 AR (Rec: 07/13/19 12:12 AR [email or web address]) Manual Assessments Soft Tissue Assessment Soft Tissue Mobility Assessment Myofascial restrictions in ant & lateral deltoid, biceps, and pectorals. Muscle guarding in upper trapezius Joint Mobility Assessment Joint Mobility Assessment suspected AC joint hypomobility and dysnfunction, but was unable to assess mobility d/t pain and guarding in UT Other Manual Assessments Other Manual Assessments UE Neural Tension tests ( Radial, Median and Ulnar) all negative PT-OP-J Posture/Palpation/Skin Start: 07/12/19 11:08 Freq: Status: Active Protocol: Document 07/13/19 11:24 AR (Rec: 07/13/19 12:12 AR [email or web address]) Posture Evaluation Position Sitting Evaluation View Lateral Head/C-Spine Posture Forward Head Shoulder Posture (L) Rounded,(R) Rounded PT-OP-K Range of Motion Start: 07/12/19 11:08 Freq: Status: Active Protocol: Document 07/13/19 11:24 AR (Rec: 07/13/19 12:12 AR [email or web address]) Shoulder Goniometric Range of Motion Shoulder Left Testing Position Sitting Flexion 165 Abduction 105 External Rotation at 0 degrees Abduction 68 Internal Rotation Behind Back (text) unable to reach ASIS without pain or momentum/use of other hand Right Shoulder ROM WFL Yes Shoulder ROM Limitations Shoulder ROM Limitations Muscle Weakness,Pain Comments pain and weakness with abduction PT-OP-L Special Tests Start: 07/12/19 11:08 Freq: Status: Active Protocol: Document 07/13/19 11:24 AR (Rec: 07/13/19 12:12 AR [email or web address]) Special Tests Shoulder Special Tests AC resisted extension Test Results negative Comments challenging to maintain position, but no pain AC Joint Compression Test Results positive Lateral Alek Test Results postive Comments indicative of RTC tear Speed's Biceps Test Results positive Estrada Renan Impingement Test Results positive Neer Impingement Test Results negative PT-OP-M Strength Start: 07/12/19 11:08 Freq: Status: Active Protocol: Document 07/13/19 11:24 AR (Rec: 07/13/19 12:12 AR [email or web address]) Shoulder Strength Shoulder Manual Muscle Testing Left Flexion 4+ Good+ Extension 5 Normal Abduction (C5) 3+ Fair+ External Rotation 3 Fair Internal Rotation 4+ Good+ Right Flexion 5 Normal Extension 5 Normal Abduction (C5) 5 Normal External Rotation 5 Normal Internal Rotation 5 Normal PT-OP-Q Treatments Start: 07/12/19 11:08 Freq: Status: Active Protocol: Document 09/09/19 14:31 MB (Rec: 09/09/19 15:09 MB [id number]) Cardio Equipment Upper Body Ergometer (UBE) Duration (Minutes) 3 RPM 60 Other backward pedalling Therapeutic Exercises Supine Exercises Posterior capsule stretch Comments Posterior capsule stretch Sitting Exercises Traps/levator stretch Comments Sitting levator and traps stretch Other Exercises Racquet ball massage Comments Cannot follow for upper traps, do intrascapular, delt PT-OP-R Modalities Start: 07/12/19 11:08 Freq: Status: Active Protocol: Document 09/06/19 15:37 MB (Rec: 09/06/19 15:41 MB [id number]) Hot Pack/Cold Pack Treatment Cold Pack Location left shoulder Patient Position Hooklying Treatment Duration (minutes) 10 Patient Tolerance Good PT-OP-T Assessment and Plan Start: 07/12/19 11:08 Freq: Status: Active Protocol: Document 09/09/19 14:31 MB (Rec: 09/09/19 15:09 MB [id number]) Physical Therapy Assessment Assessment Summary Assessment Pt states that she thinks that Counterstrain was helpful and her arm was not as achy after treatment. Pt has confusion with tasks, command-following and some decreased attention. Physical Therapy Plan Frequency and Duration Frequency of Treatment 2x/Week Duration of Treatment 2 months Plan of Care Start Date 07/13/19 Plan of Care End Date 09/12/19 Next Visit Focus/Plan Next Note Type Progress Note Next Visit Plan For tx: Consider further thoracic mobility, thread the needle open book
--- NOTE | 2019-09-13 11:16 | PT.OTN ---
Current Diagnoses Stiffness of left shoulder, not elsewhere classified (09/13/19) Abnormal posture (09/13/19) Weakness (09/13/19) Strain of other muscles, fascia and tendons at shoulder and upper arm level, unspecified arm, initial encounter (09/13/19) Physical Therapy Treatment Note PT-OP-A Visit Information Start: 07/12/19 11:08 Freq: Status: Active Protocol: Document 09/13/19 10:40 [facility] (Rec: 09/13/19 11:16 [facility] [id number]) Out-Patient Physical Therapy Visit Information Visit Information Visit Type Progress Note Visit Start Time 10:32 Visit Stop Time 11:23 Total Visit Minutes 51 Visit Number 14/45 Number of PATIENT COMPANION Visits 0 PT-OP-B Current Condition Start: 07/12/19 11:08 Freq: Status: Active Protocol: Document 07/13/19 11:24 AR (Rec: 07/13/19 12:12 AR [email or web address]) Current Condition History of Current Condition Onset Date 04/21/2019 Current Complaints L shoulder pain, weakness, and dec ROM History of Current Condition Pt reports she re-injured her L shoulder while closing the door of her car. She has suicide doors and her arm got caught in the door and was pulled behind her. She torn her RTC in 2004 and has had shoulder pain and weakness since then. Pt has a hx of MS and has had 3 falls in the past year. She has come to PT previously for balance training and is continuing to do balance and strengthening exercises at home. Pt also has hx of breast cancer and a L mastectomy and she believes that scar tissue may also be contributing to her shoulder pain. She stretches scar tissue daily. Pt is unable to lift anything heavier than 5 pounds and she is unable to turn off a light switch or close a door with her L hand. She has pain into hand and 3rd and 4th digit. She stated that no one can figure out what's wrong with my hand but also reported a dx of trigger finger. Pt has pain in palm of hand when her fingers aren 't working. Pt has a hx of neck pain and had surgery for carpal tunnel syndrome 2 years ago. Prior Treatments and Tests X-ray in 2004 after RTC injury , no fracture. Imaging for recent injury done at [facility] Orthopedics Treatment Goals Patient/Caregiver Goals Be able to use arm normally for lifting, closing doors. Be able to perform yoga stretches without shoulder pain. Personal Factors Other Personal Factors That May Effect Medical hx (MS, fall hx, Therapy/Recovery breast cancer, etc) PT-OP-C Subjective Start: 07/12/19 11:08 Freq: Status: Active Protocol: Document 09/13/19 10:40 [facility] (Rec: 09/13/19 11:16 [facility] [id number]) OP-PT Subjective Patient Comments Patient Comments Pt reports she feels like she is making good progress Patient Reported Progress Improving PT-OP-F Manual Assessment Start: 07/12/19 11:08 Freq: Status: Active Protocol: Document 07/13/19 11:24 AR (Rec: 07/13/19 12:12 AR [email or web address]) Manual Assessments Soft Tissue Assessment Soft Tissue Mobility Assessment Myofascial restrictions in ant & lateral deltoid, biceps, and pectorals. Muscle guarding in upper trapezius Joint Mobility Assessment Joint Mobility Assessment suspected AC joint hypomobility and dysnfunction, but was unable to assess mobility d/t pain and guarding in UT Other Manual Assessments Other Manual Assessments UE Neural Tension tests ( Radial, Median and Ulnar) all negative PT-OP-J Posture/Palpation/Skin Start: 07/12/19 11:08 Freq: Status: Active Protocol: Document 07/13/19 11:24 AR (Rec: 07/13/19 12:12 AR [email or web address]) Posture Evaluation Position Sitting Evaluation View Lateral Head/C-Spine Posture Forward Head Shoulder Posture (L) Rounded,(R) Rounded PT-OP-K Range of Motion Start: 07/12/19 11:08 Freq: Status: Active Protocol: Document 09/13/19 10:40 [facility] (Rec: 09/13/19 11:16 [facility] [id number]) Shoulder Goniometric Range of Motion Shoulder Left Flexion 150 Extension 50 Abduction 55 External Rotation at 0 degrees Abduction 61 Internal Rotation Behind Back (text) T12 PT-OP-L Special Tests Start: 07/12/19 11:08 Freq: Status: Active Protocol: Document 07/13/19 11:24 AR (Rec: 07/13/19 12:12 AR [email or web address]) Special Tests Shoulder Special Tests AC resisted extension Test Results negative Comments challenging to maintain position, but no pain AC Joint Compression Test Results positive Lateral Alek Test Results postive Comments indicative of RTC tear Speed's Biceps Test Results positive Estrada Renan Impingement Test Results positive Neer Impingement Test Results negative PT-OP-M Strength Start: 07/12/19 11:08 Freq: Status: Active Protocol: Document 09/13/19 10:40 [facility] (Rec: 09/13/19 11:16 [facility] [id number]) Shoulder Strength Shoulder Manual Muscle Testing Left Flexion 4+ Good+ Extension 5 Normal Abduction (C5) 3+ Fair+ External Rotation 4+ Good+ Internal Rotation 3 Fair PT-OP-Q Treatments Start: 07/12/19 11:08 Freq: Status: Active Protocol: Document 09/13/19 10:40 [facility] (Rec: 09/13/19 11:16 [facility] [id number]) Therapeutic Exercises Supine Exercises abd Supine Exercise Name tbar AAROM Side left Reps/Minutes 20 Sidelying Exercises shoulder abd Sidelying Exercise Name attempted AAROM but painful Standing Exercises flex Standing Exercise Name focus on scap range Side left Equipment Used 2# Reps/Minutes 15 Manual Therapy Treatment Soft Tissue Mobilization infraspinatus Body Location L Mobilization Type Rolling,Strumming Intensity/Depth Moderate UT Body Location L Mobilization Type Rolling,Strumming,Sustained Pressure PT-OP-R Modalities Start: 07/12/19 11:08 Freq: Status: Active Protocol: Document 09/13/19 10:40 [facility] (Rec: 09/13/19 11:16 [facility] [id number]) Hot Pack/Cold Pack Treatment Cold Pack Location left shoulder Patient Position Hooklying Treatment Duration (minutes) 10 Patient Tolerance Good PT-OP-T Assessment and Plan Start: 07/12/19 11:08 Freq: Status: Active Protocol: Document 09/13/19 10:40 [facility] (Rec: 09/13/19 11:16 [facility] [id number]) Physical Therapy Assessment Goals ROM Impairment decreased and painful ROM Short Term Goal (STG) Pt will improve abduction ROM to at least 140 deg and IR to L5/S1 level w/o pain and with proper scapular mechanics. 09/13-able to do IR STG Duration 10/14/19 Invertebrate Paleontologist Goal (LTG) Pt will demonstrate L shoulder ROM within normal limits to be able to perform daily activities. 09/13-improving ability at home LTG Duration 11/13/19 Lifting Impairment pt unable to lift more than 5 lbs Short Term Goal (STG) Pt will be able to lift 5 lbs to 45 deg abd with proper scapular mechanics. STG Duration 10/20/19 Invertebrate Paleontologist Goal (LTG) Pt will be able to lift 10 lbs without shoulder shrug and with proper scapular mechanics . 09/13-pt able to lift 10lbs but deos require ceuing for scap mechanics LTG Duration 11/12/19 Strength Impairment weakness Short Term Goal (STG) Pt will be compliant with HEP. STG Duration achieved Skilled Nursing Goal (LTG) Pt will inc all shoulder MMTs to at least 4/5 to be able to perform daily activities. 09/13- improving LTG Duration 11/13/19 Assessment Summary Assessment Pt is making good improvement with her strength and ROM. SHe is improving with functional ability but is slow to progress. She is most limited with scapular mechanics & abd ROM. Physical Therapy Plan Frequency and Duration Frequency of Treatment 2x/Week Duration of Treatment 2 months Plan of Care Start Date 09/13/19 Plan of Care End Date 11/13/19 Therapeutic Interventions Therapeutic Interventions Aquatic Therapy,Home Exercise Program,Joint Mobilizations, Manual Therapy,Neuromuscular Re-education,Patient/Caregiver Education,Self-Care/Home Management,Soft Tissue Mobilization,Taping, Therapeutic Activities, Therapeutic Exercises Modalities Cold Pack/Ice Massage,Electric Stimulation,Hot Packs, Infrared Therapy,Iontophoresis ,Ultrasound Next Visit Focus/Plan Next Note Type Treatment Note Next Visit Plan For tx: Consider further thoracic mobility, thread the needle open book
--- NOTE | 2019-09-13 11:17 | PT.OPPOC ---
Current Diagnoses Stiffness of left shoulder, not elsewhere classified (09/13/19) Abnormal posture (09/13/19) Weakness (09/13/19) Strain of other muscles, fascia and tendons at shoulder and upper arm level, unspecified arm, initial encounter (09/13/19) Visit Care Team Role Provider Type Curtis Adams MD Primary Care Provider Non-Staff Specialty: Family Practice Address: [address], [address], [place], [address] Email: Braeden Fischer MD Family Provider Physician Specialty: Oncology Address: [address] [place] [address], [address] Email: Jason Norwood MD Attending Provider Physician Specialty: Orthopedic Surgery Address: [address] [place] [address], [id number] Email: [email or web address] Plan Of Care PT-OP-T Assessment and Plan Start: 07/12/19 11:08 Freq: Status: Active Protocol: Document 09/13/19 10:40 [facility] (Rec: 09/13/19 11:16 [facility] [id number]) Physical Therapy Assessment Goals ROM Impairment decreased and painful ROM Short Term Goal (STG) Pt will improve abduction ROM to at least 140 deg and IR to L5/S1 level w/o pain and with proper scapular mechanics. 09/13-able to do IR STG Duration 10/14/19 Training Designer Goal (LTG) Pt will demonstrate L shoulder ROM within normal limits to be able to perform daily activities. 09/13-improving ability at home LTG Duration 11/13/19 Lifting Impairment pt unable to lift more than 5 lbs Short Term Goal (STG) Pt will be able to lift 5 lbs to 45 deg abd with proper scapular mechanics. STG Duration 10/20/19 Training Designer Goal (LTG) Pt will be able to lift 10 lbs without shoulder shrug and with proper scapular mechanics . 09/13-pt able to lift 10lbs but deos require ceuing for scap mechanics LTG Duration 11/12/19 Strength Impairment weakness Short Term Goal (STG) Pt will be compliant with HEP. STG Duration achieved Alf Goal (LTG) Pt will inc all shoulder MMTs to at least 4/5 to be able to perform daily activities. 09/13- improving LTG Duration 11/13/19 Assessment Summary Assessment Pt is making good improvement with her strength and ROM. SHe is improving with functional ability but is slow to progress. She is most limited with scapular mechanics & abd ROM. Physical Therapy Plan Frequency and Duration Frequency of Treatment 2x/Week Duration of Treatment 2 months Plan of Care Start Date 09/13/19 Plan of Care End Date 11/13/19 Therapeutic Interventions Therapeutic Interventions Aquatic Therapy,Home Exercise Program,Joint Mobilizations, Manual Therapy,Neuromuscular Re-education,Patient/Caregiver Education,Self-Care/Home Management,Soft Tissue Mobilization,Taping, Therapeutic Activities, Therapeutic Exercises Modalities Cold Pack/Ice Massage,Electric Stimulation,Hot Packs, Infrared Therapy,Iontophoresis ,Ultrasound Next Visit Focus/Plan Next Note Type Treatment Note Next Visit Plan For tx: Consider further thoracic mobility, thread the needle open book Plan of Care Dates Plan of Care Start Date 09/13/19 Plan of Care End Date 11/13/19
--- NOTE | 2019-09-15 18:02 | PT.OTN ---
Current Diagnoses Stiffness of left shoulder, not elsewhere classified (09/15/19) Abnormal posture (09/15/19) Weakness (09/15/19) Strain of other muscles, fascia and tendons at shoulder and upper arm level, unspecified arm, initial encounter (09/15/19) Physical Therapy Treatment Note PT-OP-A Visit Information Start: 07/12/19 11:08 Freq: Status: Active Protocol: Document 09/15/19 13:50 [facility] (Rec: 09/15/19 18:01 [facility] [id number]) Out-Patient Physical Therapy Visit Information Visit Information Visit Type Treatment Note Visit Start Time 13:50 Visit Stop Time 14:38 Total Visit Minutes 48 Visit Number 15/45 Number of COMBINER OPERATOR Visits 0 PT-OP-B Current Condition Start: 07/12/19 11:08 Freq: Status: Active Protocol: Document 07/13/19 11:24 AR (Rec: 07/13/19 12:12 AR [email or web address]) Current Condition History of Current Condition Onset Date 04/21/2019 Current Complaints L shoulder pain, weakness, and dec ROM History of Current Condition Pt reports she re-injured her L shoulder while closing the door of her car. She has suicide doors and her arm got caught in the door and was pulled behind her. She torn her RTC in 2004 and has had shoulder pain and weakness since then. Pt has a hx of MS and has had 3 falls in the past year. She has come to PT previously for balance training and is continuing to do balance and strengthening exercises at home. Pt also has hx of breast cancer and a L mastectomy and she believes that scar tissue may also be contributing to her shoulder pain. She stretches scar tissue daily. Pt is unable to lift anything heavier than 5 pounds and she is unable to turn off a light switch or close a door with her L hand. She has pain into hand and 3rd and 4th digit. She stated that no one can figure out what's wrong with my hand but also reported a dx of trigger finger. Pt has pain in palm of hand when her fingers aren 't working. Pt has a hx of neck pain and had surgery for carpal tunnel syndrome 2 years ago. Prior Treatments and Tests X-ray in 2004 after RTC injury , no fracture. Imaging for recent injury done at [facility] Treatment Goals Patient/Caregiver Goals Be able to use arm normally for lifting, closing doors. Be able to perform yoga stretches without shoulder pain. Personal Factors Other Personal Factors That May Effect Medical hx (MS, fall hx, Therapy/Recovery breast cancer, etc) PT-OP-C Subjective Start: 07/12/19 11:08 Freq: Status: Active Protocol: Document 09/15/19 13:50 LR (Rec: 09/15/19 18:01 [facility] [id number]) OP-PT Subjective Patient Comments Patient Comments Pt reports she reinjured her shoulder when folding a becky size sheet PT-OP-F Manual Assessment Start: 07/12/19 11:08 Freq: Status: Active Protocol: Document 07/13/19 11:24 AR (Rec: 07/13/19 12:12 AR [email or web address]) Manual Assessments Soft Tissue Assessment Soft Tissue Mobility Assessment Myofascial restrictions in ant & lateral deltoid, biceps, and pectorals. Muscle guarding in upper trapezius Joint Mobility Assessment Joint Mobility Assessment suspected AC joint hypomobility and dysnfunction, but was unable to assess mobility d/t pain and guarding in UT Other Manual Assessments Other Manual Assessments UE Neural Tension tests ( Radial, Median and Ulnar) all negative PT-OP-J Posture/Palpation/Skin Start: 07/12/19 11:08 Freq: Status: Active Protocol: Document 07/13/19 11:24 AR (Rec: 07/13/19 12:12 AR [email or web address]) Posture Evaluation Position Sitting Evaluation View Lateral Head/C-Spine Posture Forward Head Shoulder Posture (L) Rounded,(R) Rounded PT-OP-K Range of Motion Start: 07/12/19 11:08 Freq: Status: Active Protocol: Document 09/13/19 10:40 [facility] (Rec: 09/13/19 11:16 [facility] [id number]) Shoulder Goniometric Range of Motion Shoulder Left Flexion 150 Extension 50 Abduction 55 External Rotation at 0 degrees Abduction 61 Internal Rotation Behind Back (text) T12 PT-OP-L Special Tests Start: 07/12/19 11:08 Freq: Status: Active Protocol: Document 07/13/19 11:24 AR (Rec: 07/13/19 12:12 AR [email or web address]) Special Tests Shoulder Special Tests AC resisted extension Test Results negative Comments challenging to maintain position, but no pain AC Joint Compression Test Results positive Lateral Alek Test Results postive Comments indicative of RTC tear Speed's Biceps Test Results positive Estrada Renan Impingement Test Results positive Neer Impingement Test Results negative PT-OP-M Strength Start: 07/12/19 11:08 Freq: Status: Active Protocol: Document 09/13/19 10:40 [facility] (Rec: 09/13/19 11:16 [facility] [id number]) Shoulder Strength Shoulder Manual Muscle Testing Left Flexion 4+ Good+ Extension 5 Normal Abduction (C5) 3+ Fair+ External Rotation 4+ Good+ Internal Rotation 3 Fair PT-OP-Q Treatments Start: 07/12/19 11:08 Freq: Status: Active Protocol: Document 09/15/19 13:50 [facility] (Rec: 09/15/19 18:01 [facility] [id number]) Therapeutic Exercises Supine Exercises Habd Side bilateral Equipment Used L1 Reps/Minutes 10x2 Standing Exercises Habd Equipment Used L1 Reps/Minutes 3 Comments stopped d/t pain resisted ER Side left Equipment Used L1 Reps/Minutes 15 resisted IR Side left Equipment Used l1 Reps/Minutes 15 Manual Therapy Treatment Soft Tissue Mobilization infraspinatus Body Location L infraspinatus & teres Mobilization Type Rolling,Strumming Intensity/Depth Moderate UT Body Location L Mobilization Type Rolling,Strumming,Sustained Pressure Joint Mobilizations GH Joint L Direction distraction, distraction w/abd , inf glide & post glide PT-OP-R Modalities Start: 07/12/19 11:08 Freq: Status: Active Protocol: Document 09/15/19 13:50 [facility] (Rec: 09/15/19 18:01 [facility] [id number]) Hot Pack/Cold Pack Treatment Cold Pack Location left shoulder Patient Position Hooklying Treatment Duration (minutes) 10 Patient Tolerance Good PT-OP-T Assessment and Plan Start: 07/12/19 11:08 Freq: Status: Active Protocol: Document 09/15/19 13:50 [facility] (Rec: 09/15/19 18:01 [facility] [id number]) Physical Therapy Assessment Goals ROM Impairment decreased and painful ROM Short Term Goal (STG) Pt will improve abduction ROM to at least 140 deg and IR to L5/S1 level w/o pain and with proper scapular mechanics. 09/13-able to do IR STG Duration 10/14/19 Ice Skating Instructor Goal (LTG) Pt will demonstrate L shoulder ROM within normal limits to be able to perform daily activities. 09/13-improving ability at home LTG Duration 11/13/19 Lifting Impairment pt unable to lift more than 5 lbs Short Term Goal (STG) Pt will be able to lift 5 lbs to 45 deg abd with proper scapular mechanics. STG Duration 10/20/19 Custodial Goal (LTG) Pt will be able to lift 10 lbs without shoulder shrug and with proper scapular mechanics . 09/13-pt able to lift 10lbs but deos require ceuing for scap mechanics LTG Duration 11/12/19 Strength Impairment weakness Short Term Goal (STG) Pt will be compliant with HEP. STG Duration achieved Ice Skating Instructor Goal (LTG) Pt will inc all shoulder MMTs to at least 4/5 to be able to perform daily activities. 09/13- improving LTG Duration 11/13/19 Assessment Summary Assessment Pt required significant cueing re: IR & ER form. Difficulty w/HAbd also but was able to perform in supine without pain . Manual focus today to dec pain as IR ROM was dec at start of session. Pt had improved tolerance to passive abd after treatment Physical Therapy Plan Frequency and Duration Frequency of Treatment 2x/Week Duration of Treatment 2 months Plan of Care Start Date 09/13/19 Plan of Care End Date 11/13/19 Next Visit Focus/Plan Next Note Type Treatment Note Next Visit Plan thoracic mobility, thread the needle open book
--- NOTE | 2019-09-20 18:39 | PT.OTN ---
Current Diagnoses Stiffness of left shoulder, not elsewhere classified (09/20/19) Abnormal posture (09/20/19) Weakness (09/20/19) Strain of other muscles, fascia and tendons at shoulder and upper arm level, unspecified arm, initial encounter (09/20/19) Physical Therapy Treatment Note PT-OP-A Visit Information Start: 07/12/19 11:08 Freq: Status: Active Protocol: Document 09/20/19 10:43 [facility] (Rec: 09/20/19 18:39 [facility] [id number]) Out-Patient Physical Therapy Visit Information Visit Information Visit Type Treatment Note Visit Start Time 10:34 Visit Stop Time 11:24 Total Visit Minutes 50 Visit Number 16/45 Number of TREATMENT COORDINATOR Visits 0 PT-OP-B Current Condition Start: 07/12/19 11:08 Freq: Status: Active Protocol: Document 07/13/19 11:24 AR (Rec: 07/13/19 12:12 AR [email or web address]) Current Condition History of Current Condition Onset Date 04/21/2019 Current Complaints L shoulder pain, weakness, and dec ROM History of Current Condition Pt reports she re-injured her L shoulder while closing the door of her car. She has suicide doors and her arm got caught in the door and was pulled behind her. She torn her RTC in 2004 and has had shoulder pain and weakness since then. Pt has a hx of MS and has had 3 falls in the past year. She has come to PT previously for balance training and is continuing to do balance and strengthening exercises at home. Pt also has hx of breast cancer and a L mastectomy and she believes that scar tissue may also be contributing to her shoulder pain. She stretches scar tissue daily. Pt is unable to lift anything heavier than 5 pounds and she is unable to turn off a light switch or close a door with her L hand. She has pain into hand and 3rd and 4th digit. She stated that no one can figure out what's wrong with my hand but also reported a dx of trigger finger. Pt has pain in palm of hand when her fingers aren 't working. Pt has a hx of neck pain and had surgery for carpal tunnel syndrome 2 years ago. Prior Treatments and Tests X-ray in 2004 after RTC injury , no fracture. Imaging for recent injury done at [facility] Treatment Goals Patient/Caregiver Goals Be able to use arm normally for lifting, closing doors. Be able to perform yoga stretches without shoulder pain. Personal Factors Other Personal Factors That May Effect Medical hx (MS, fall hx, Therapy/Recovery breast cancer, etc) PT-OP-C Subjective Start: 07/12/19 11:08 Freq: Status: Active Protocol: Document 09/20/19 10:43 [facility] (Rec: 09/20/19 18:39 [facility] [id number]) OP-PT Subjective Patient Comments Patient Comments Pt reports shoulder doung a little better since flair up but notes she has been babying it more. PT-OP-F Manual Assessment Start: 07/12/19 11:08 Freq: Status: Active Protocol: Document 07/13/19 11:24 AR (Rec: 07/13/19 12:12 AR [email or web address]) Manual Assessments Soft Tissue Assessment Soft Tissue Mobility Assessment Myofascial restrictions in ant & lateral deltoid, biceps, and pectorals. Muscle guarding in upper trapezius Joint Mobility Assessment Joint Mobility Assessment suspected AC joint hypomobility and dysnfunction, but was unable to assess mobility d/t pain and guarding in [place] Other Manual Assessments Other Manual Assessments UE Neural Tension tests ( Radial, Median and Ulnar) all negative PT-OP-J Posture/Palpation/Skin Start: 07/12/19 11:08 Freq: Status: Active Protocol: Document 07/13/19 11:24 AR (Rec: 07/13/19 12:12 AR [email or web address]) Posture Evaluation Position Sitting Evaluation View Lateral Head/C-Spine Posture Forward Head Shoulder Posture (L) Rounded,(R) Rounded PT-OP-K Range of Motion Start: 07/12/19 11:08 Freq: Status: Active Protocol: Document 09/13/19 10:40 LR (Rec: 09/13/19 11:16 [facility] [id number]) Shoulder Goniometric Range of Motion Shoulder Left Flexion 150 Extension 50 Abduction 55 External Rotation at 0 degrees Abduction 61 Internal Rotation Behind Back (text) T12 PT-OP-L Special Tests Start: 07/12/19 11:08 Freq: Status: Active Protocol: Document 07/13/19 11:24 AR (Rec: 07/13/19 12:12 AR [email or web address]) Special Tests Shoulder Special Tests AC resisted extension Test Results negative Comments challenging to maintain position, but no pain AC Joint Compression Test Results positive Lateral Alek Test Results postive Comments indicative of RTC tear Speed's Biceps Test Results positive Estrada Renan Impingement Test Results positive Neer Impingement Test Results negative PT-OP-M Strength Start: 07/12/19 11:08 Freq: Status: Active Protocol: Document 09/13/19 10:40 [facility] (Rec: 09/13/19 11:16 [facility] [id number]) Shoulder Strength Shoulder Manual Muscle Testing Left Flexion 4+ Good+ Extension 5 Normal Abduction (C5) 3+ Fair+ External Rotation 4+ Good+ Internal Rotation 3 Fair PT-OP-Q Treatments Start: 07/12/19 11:08 Freq: Status: Active Protocol: Document 09/20/19 10:43 [facility] (Rec: 09/20/19 18:39 [facility] [id number]) Therapeutic Exercises Sidelying Exercises open book Sidelying Exercise Name thoraicc rotation Side left Reps/Minutes 10 Sitting Exercises overhead nadeem Sitting Exercise Name flex & abd AAROM Side left Reps/Minutes 15 ea Standing Exercises wall posture Reps/Minutes 30sec x2 resisted ER Standing Exercise Name w/towel at elbow Side left Equipment Used L1 Reps/Minutes 15 resisted IR Standing Exercise Name w/towel at elbow Side left Equipment Used l1 Reps/Minutes 15 shoulder IR Standing Exercise Name tbar in front Reps/Minutes 10 Manual Therapy Treatment Joint Mobilizations GH Joint L Direction distraction, distraction w/abd , inf glide & post glide PT-OP-R Modalities Start: 07/12/19 11:08 Freq: Status: Active Protocol: Document 09/20/19 10:43 [facility] (Rec: 09/20/19 18:39 [facility] [id number]) Hot Pack/Cold Pack Treatment Cold Pack Location left shoulder Patient Position Hooklying Treatment Duration (minutes) 10 Patient Tolerance Good PT-OP-T Assessment and Plan Start: 07/12/19 11:08 Freq: Status: Active Protocol: Document 09/20/19 10:43 [facility] (Rec: 09/20/19 18:39 [facility] [id number]) Physical Therapy Assessment Goals ROM Impairment decreased and painful ROM Short Term Goal (STG) Pt will improve abduction ROM to at least 140 deg and IR to L5/S1 level w/o pain and with proper scapular mechanics. 09/13-able to do IR STG Duration 10/14/19 Terminal Worker Goal (LTG) Pt will demonstrate L shoulder ROM within normal limits to be able to perform daily activities. 09/13-improving ability at home LTG Duration 11/13/19 Lifting Impairment pt unable to lift more than 5 lbs Short Term Goal (STG) Pt will be able to lift 5 lbs to 45 deg abd with proper scapular mechanics. STG Duration 10/20/19 [facility] Goal (LTG) Pt will be able to lift 10 lbs without shoulder shrug and with proper scapular mechanics . 09/13-pt able to lift 10lbs but deos require ceuing for scap mechanics LTG Duration 11/12/19 Strength Impairment weakness Short Term Goal (STG) Pt will be compliant with HEP. STG Duration achieved [facility] Goal (LTG) Pt will inc all shoulder MMTs to at least 4/5 to be able to perform daily activities. 09/13- improving LTG Duration 11/13/19 Assessment Summary Assessment Pt cont to require cueing with strengthening exercises for scapular position & posture. Pt given HEP for home to cont to work on scapular stability & thoracic mobility. Physical Therapy Plan Frequency and Duration Frequency of Treatment 2x/Week Duration of Treatment 2 months Plan of Care Start Date 09/13/19 Plan of Care End Date 11/13/19 Next Visit Focus/Plan Next Note Type Treatment Note Next Visit Plan thread the needle streatch & thoracic mobility
--- NOTE | 2019-09-22 12:17 | PT.OTN ---
Current Diagnoses Stiffness of left shoulder, not elsewhere classified (09/22/19) Abnormal posture (09/22/19) Weakness (09/22/19) Strain of other muscles, fascia and tendons at shoulder and upper arm level, unspecified arm, initial encounter (09/22/19) Physical Therapy Treatment Note PT-OP-A Visit Information Start: 07/12/19 11:08 Freq: Status: Active Protocol: Document 09/22/19 11:21 [facility] (Rec: 09/22/19 12:12 [facility] [id number]) Out-Patient Physical Therapy Visit Information Visit Information Visit Type Treatment Note Visit Start Time 11:20 Visit Stop Time 12:11 Total Visit Minutes 51 Visit Number 17/45 Number of [employer] Visits 0 PT-OP-B Current Condition Start: 07/12/19 11:08 Freq: Status: Active Protocol: Document 07/13/19 11:24 AR (Rec: 07/13/19 12:12 AR [email or web address]) Current Condition History of Current Condition Onset Date 04/21/2019 Current Complaints L shoulder pain, weakness, and dec ROM History of Current Condition Pt reports she re-injured her L shoulder while closing the door of her car. She has suicide doors and her arm got caught in the door and was pulled behind her. She torn her RTC in 2004 and has had shoulder pain and weakness since then. Pt has a hx of MS and has had 3 falls in the past year. She has come to PT previously for balance training and is continuing to do balance and strengthening exercises at home. Pt also has hx of breast cancer and a L mastectomy and she believes that scar tissue may also be contributing to her shoulder pain. She stretches scar tissue daily. Pt is unable to lift anything heavier than 5 pounds and she is unable to turn off a light switch or close a door with her L hand. She has pain into hand and 3rd and 4th digit. She stated that no one can figure out what's wrong with my hand but also reported a dx of trigger finger. Pt has pain in palm of hand when her fingers aren 't working. Pt has a hx of neck pain and had surgery for carpal tunnel syndrome 2 years ago. Prior Treatments and Tests X-ray in 2004 after RTC injury , no fracture. Imaging for recent injury done at [facility] Treatment Goals Patient/Caregiver Goals Be able to use arm normally for lifting, closing doors. Be able to perform yoga stretches without shoulder pain. Personal Factors Other Personal Factors That May Effect Medical hx (MS, fall hx, Therapy/Recovery breast cancer, etc) PT-OP-C Subjective Start: 07/12/19 11:08 Freq: Status: Active Protocol: Document 09/22/19 11:21 [facility] (Rec: 09/22/19 12:12 [facility] [id number]) OP-PT Subjective Patient Comments Patient Comments Pt tried open book stretch and it went well. She did a lot houseowrk yesterday. PT-OP-F Manual Assessment Start: 07/12/19 11:08 Freq: Status: Active Protocol: Document 07/13/19 11:24 AR (Rec: 07/13/19 12:12 AR [email or web address]) Manual Assessments Soft Tissue Assessment Soft Tissue Mobility Assessment Myofascial restrictions in ant & lateral deltoid, biceps, and pectorals. Muscle guarding in upper trapezius Joint Mobility Assessment Joint Mobility Assessment suspected AC joint hypomobility and dysnfunction, but was unable to assess mobility d/t pain and guarding in [place] Other Manual Assessments Other Manual Assessments UE Neural Tension tests ( Radial, Median and Ulnar) all negative PT-OP-J Posture/Palpation/Skin Start: 07/12/19 11:08 Freq: Status: Active Protocol: Document 07/13/19 11:24 AR (Rec: 07/13/19 12:12 AR [email or web address]) Posture Evaluation Position Sitting Evaluation View Lateral Head/C-Spine Posture Forward Head Shoulder Posture (L) Rounded,(R) Rounded PT-OP-K Range of Motion Start: 07/12/19 11:08 Freq: Status: Active Protocol: Document 09/13/19 10:40 [facility] (Rec: 09/13/19 11:16 [facility] [id number]) Shoulder Goniometric Range of Motion Shoulder Left Flexion 150 Extension 50 Abduction 55 External Rotation at 0 degrees Abduction 61 Internal Rotation Behind Back (text) T12 PT-OP-L Special Tests Start: 07/12/19 11:08 Freq: Status: Active Protocol: Document 07/13/19 11:24 [facility] (Rec: 07/13/19 12:12 AR [email or web address]) Special Tests Shoulder Special Tests AC resisted extension Test Results negative Comments challenging to maintain position, but no pain AC Joint Compression Test Results positive Lateral Alek Test Results postive Comments indicative of RTC tear Speed's Biceps Test Results positive Estrada Renan Impingement Test Results positive Neer Impingement Test Results negative PT-OP-M Strength Start: 07/12/19 11:08 Freq: Status: Active Protocol: Document 09/13/19 10:40 [facility] (Rec: 09/13/19 11:16 [facility] [id number]) Shoulder Strength Shoulder Manual Muscle Testing Left Flexion 4+ Good+ Extension 5 Normal Abduction (C5) 3+ Fair+ External Rotation 4+ Good+ Internal Rotation 3 Fair PT-OP-Q Treatments Start: 07/12/19 11:08 Freq: Status: Active Protocol: Document 09/22/19 11:21 [facility] (Rec: 09/22/19 12:12 [facility] [id number]) Therapeutic Exercises Supine Exercises Habd Supine Exercise Name attempted but pt unable without pain retraction Supine Exercise Name focus on scapular retraction without spine ext Reps/Minutes 20 Sitting Exercises overhead nadeem Sitting Exercise Name flex & abd AAROM Side left Reps/Minutes 15 ea Comments working on gradually inc LUE use Scap Squeezes Sitting Exercise Name scap retraciton with max cueing Side bilateral Reps/Minutes 20 Standing Exercises resisted ER Standing Exercise Name w/towel at elbow Side left Equipment Used L1 Reps/Minutes 15 resisted IR Standing Exercise Name w/towel at elbow Side left Equipment Used l1 Reps/Minutes 15 Manual Therapy Treatment Soft Tissue Mobilization infraspinatus Body Location L infraspinatus & teres major/ minro Mobilization Type Rolling,Strumming Intensity/Depth Moderate Joint Mobilizations GH Joint L Direction distraction, inf & post glides scapula Joint L Direction all planes Neuro Re-Education Treatment Other Activities PNF Details ant elevation & post depression Comments 1.rhythmic initiation 2. COI PT-OP-R Modalities Start: 07/12/19 11:08 Freq: Status: Active Protocol: Document 09/22/19 11:21 [facility] (Rec: 09/22/19 12:12 [facility] [id number]) Hot Pack/Cold Pack Treatment Cold Pack Location left shoulder Patient Position Hooklying Treatment Duration (minutes) 10 Patient Tolerance Good PT-OP-T Assessment and Plan Start: 07/12/19 11:08 Freq: Status: Active Protocol: Document 09/22/19 11:21 [facility] (Rec: 09/22/19 12:12 [facility] [id number]) Physical Therapy Assessment Goals ROM Impairment decreased and painful ROM Short Term Goal (STG) Pt will improve abduction ROM to at least 140 deg and IR to L5/S1 level w/o pain and with proper scapular mechanics. 09/13-able to do IR STG Duration 10/14/19 Shelter Goal (LTG) Pt will demonstrate L shoulder ROM within normal limits to be able to perform daily activities. 09/13-improving ability at home LTG Duration 11/13/19 Lifting Impairment pt unable to lift more than 5 lbs Short Term Goal (STG) Pt will be able to lift 5 lbs to 45 deg abd with proper scapular mechanics. STG Duration 10/20/19 Certified Public Accountant Goal (LTG) Pt will be able to lift 10 lbs without shoulder shrug and with proper scapular mechanics . 09/13-pt able to lift 10lbs but deos require ceuing for scap mechanics LTG Duration 11/12/19 Strength Impairment weakness Short Term Goal (STG) Pt will be compliant with HEP. STG Duration achieved Shelter Goal (LTG) Pt will inc all shoulder MMTs to at least 4/5 to be able to perform daily activities. 09/13- improving LTG Duration 11/13/19 Assessment Summary Assessment Pt cont to rquire significant cueing for form during exercises and to dec tension on band and set up befroe starting exercises. She required max cueing and education for scap retraction today but improved with motion after PNF done today. Significant time spent on rhythmic initiaton as pt has difficulty with appropriate patterns and proprioception of scapula. Physical Therapy Plan Frequency and Duration Frequency of Treatment 2x/Week Duration of Treatment 2 months Plan of Care Start Date 09/13/19 Plan of Care End Date 11/13/19 Next Visit Focus/Plan Next Note Type Treatment Note Next Visit Plan thread the needle streatch & thoracic mobility & cont to work on scapular awareness & PNF
--- NOTE | 2019-09-29 16:19 | PT.OTN ---
Current Diagnoses Stiffness of left shoulder, not elsewhere classified (09/29/19) Abnormal posture (09/29/19) Weakness (09/29/19) Strain of other muscles, fascia and tendons at shoulder and upper arm level, unspecified arm, initial encounter (09/29/19) Physical Therapy Treatment Note PT-OP-A Visit Information Start: 07/12/19 11:08 Freq: Status: Active Protocol: Document 09/29/19 16:15 LR (Rec: 09/29/19 16:19 LR [email or web address]) Out-Patient Physical Therapy Visit Information Visit Information Visit Type Treatment Note Visit Start Time 10:38 Visit Stop Time 11:26 Total Visit Minutes 48 Visit Number Number of AMBULANCE OFFICER Visits 0 PT-OP-B Current Condition Start: 07/12/19 11:08 Freq: Status: Active Protocol: Document 07/13/19 11:24 AR (Rec: 07/13/19 12:12 AR [email or web address]) Current Condition History of Current Condition Onset Date 04/21/2019 Current Complaints L shoulder pain, weakness, and dec ROM History of Current Condition Pt reports she re-injured her L shoulder while closing the door of her car. She has suicide doors and her arm got caught in the door and was pulled behind her. She torn her RTC in 2004 and has had shoulder pain and weakness since then. Pt has a hx of MS and has had 3 falls in the past year. She has come to PT previously for balance training and is continuing to do balance and strengthening exercises at home. Pt also has hx of breast cancer and a L mastectomy and she believes that scar tissue may also be contributing to her shoulder pain. She stretches scar tissue daily. Pt is unable to lift anything heavier than 5 pounds and she is unable to turn off a light switch or close a door with her L hand. She has pain into hand and 3rd and 4th digit. She stated that no one can figure out what's wrong with my hand but also reported a dx of trigger finger. Pt has pain in palm of hand when her fingers aren 't working. Pt has a hx of neck pain and had surgery for carpal tunnel syndrome 2 years ago. Prior Treatments and Tests X-ray in 2004 after RTC injury , no fracture. Imaging for recent injury done at [facility] Treatment Goals Patient/Caregiver Goals Be able to use arm normally for lifting, closing doors. Be able to perform yoga stretches without shoulder pain. Personal Factors Other Personal Factors That May Effect Medical hx (MS, fall hx, Therapy/Recovery breast cancer, etc) PT-OP-C Subjective Start: 07/12/19 11:08 Freq: Status: Active Protocol: Document 09/29/19 16:15 [facility] (Rec: 09/29/19 16:19 [facility] [email or web address]) OP-PT Subjective Patient Comments Patient Comments Pt reports she has been working on her scap squeezes and feels like she is doing them better starting this AM PT-OP-F Manual Assessment Start: 07/12/19 11:08 Freq: Status: Active Protocol: Document 07/13/19 11:24 AR (Rec: 07/13/19 12:12 AR [email or web address]) Manual Assessments Soft Tissue Assessment Soft Tissue Mobility Assessment Myofascial restrictions in ant & lateral deltoid, biceps, and pectorals. Muscle guarding in upper trapezius Joint Mobility Assessment Joint Mobility Assessment suspected AC joint hypomobility and dysnfunction, but was unable to assess mobility d/t pain and guarding in UT Other Manual Assessments Other Manual Assessments UE Neural Tension tests ( Radial, Median and Ulnar) all negative PT-OP-J Posture/Palpation/Skin Start: 07/12/19 11:08 Freq: Status: Active Protocol: Document 07/13/19 11:24 AR (Rec: 07/13/19 12:12 AR [email or web address]) Posture Evaluation Position Sitting Evaluation View Lateral Head/C-Spine Posture Forward Head Shoulder Posture (L) Rounded,(R) Rounded PT-OP-K Range of Motion Start: 07/12/19 11:08 Freq: Status: Active Protocol: Document 09/13/19 10:40 [facility] (Rec: 09/13/19 11:16 [facility] [id number]) Shoulder Goniometric Range of Motion Shoulder Left Flexion 150 Extension 50 Abduction 55 External Rotation at 0 degrees Abduction 61 Internal Rotation Behind Back (text) T12 PT-OP-L Special Tests Start: 07/12/19 11:08 Freq: Status: Active Protocol: Document 07/13/19 11:24 AR (Rec: 07/13/19 12:12 AR [email or web address]) Special Tests Shoulder Special Tests AC resisted extension Test Results negative Comments challenging to maintain position, but no pain AC Joint Compression Test Results positive Lateral Alek Test Results postive Comments indicative of RTC tear Speed's Biceps Test Results positive Estrada Renan Impingement Test Results positive Neer Impingement Test Results negative PT-OP-M Strength Start: 07/12/19 11:08 Freq: Status: Active Protocol: Document 09/13/19 10:40 [facility] (Rec: 09/13/19 11:16 [facility] [id number]) Shoulder Strength Shoulder Manual Muscle Testing Left Flexion 4+ Good+ Extension 5 Normal Abduction (C5) 3+ Fair+ External Rotation 4+ Good+ Internal Rotation 3 Fair PT-OP-Q Treatments Start: 07/12/19 11:08 Freq: Status: Active Protocol: Document 09/29/19 16:15 [facility] (Rec: 09/29/19 16:19 [facility] [email or web address]) Manual Therapy Treatment Soft Tissue Mobilization pec Body Location L Mobilization Type Myofascial Release,Rolling Intensity/Depth Superficial scalenes Body Location L scalenes Mobilization Type Rolling,Strumming UT Body Location L UT Mobilization Type Myofascial Release, Oscillations,Rolling,Strumming ,Sustained Pressure Intensity/Depth Moderate Body Position Hooklying Comments pt unable to tolerate deep pressure in specific areas of UT Joint Mobilizations GH Joint L Direction distraction glides PT-OP-R Modalities Start: 07/12/19 11:08 Freq: Status: Active Protocol: Document 09/29/19 16:15 [facility] (Rec: 09/29/19 16:19 [facility] [email or web address]) Hot Pack/Cold Pack Treatment Cold Pack Location left shoulder Patient Position Hooklying Treatment Duration (minutes) 10 Patient Tolerance Good PT-OP-T Assessment and Plan Start: 07/12/19 11:08 Freq: Status: Active Protocol: Document 09/29/19 16:15 [facility] (Rec: 09/29/19 16:19 [facility] [email or web address]) Physical Therapy Assessment Goals ROM Impairment decreased and painful ROM Short Term Goal (STG) Pt will improve abduction ROM to at least 140 deg and IR to L5/S1 level w/o pain and with proper scapular mechanics. 09/13-able to do IR STG Duration 10/14/19 Counter Top Maker Goal (LTG) Pt will demonstrate L shoulder ROM within normal limits to be able to perform daily activities. 09/13-improving ability at home LTG Duration 11/13/19 Lifting Impairment pt unable to lift more than 5 lbs Short Term Goal (STG) Pt will be able to lift 5 lbs to 45 deg abd with proper scapular mechanics. STG Duration 10/20/19 Counter Top Maker Goal (LTG) Pt will be able to lift 10 lbs without shoulder shrug and with proper scapular mechanics . 09/13-pt able to lift 10lbs but deos require ceuing for scap mechanics LTG Duration 11/12/19 Strength Impairment weakness Short Term Goal (STG) Pt will be compliant with HEP. STG Duration achieved Shelter Goal (LTG) Pt will inc all shoulder MMTs to at least 4/5 to be able to perform daily activities. 09/13- improving LTG Duration 11/13/19 Assessment Summary Assessment Pt required very min cueing for exercises and was instructed to do: scap retraction, rows, resisted IR & ER & LS & UT stretches at home. She did well with all exercises without pain and much better form today. She has signficant tightenss of scalenes, UT and pecs and when scalenes were worked on, she felt pain shoot into her arm which may indicate some neural impingement in that region creating some arm/shoulder pain. Physical Therapy Plan Frequency and Duration Frequency of Treatment 2x/Week Duration of Treatment 2 months Plan of Care Start Date 09/13/19 Plan of Care End Date 11/13/19 Next Visit Focus/Plan Next Note Type Treatment Note Next Visit Plan continue to work on scapular control and awareness exercises, scapular PNF, neck ROM and STM
--- NOTE | 2019-10-04 16:17 | PT.OTN ---
Current Diagnoses Stiffness of left shoulder, not elsewhere classified (10/04/19) Abnormal posture (10/04/19) Weakness (10/04/19) Strain of other muscles, fascia and tendons at shoulder and upper arm level, unspecified arm, initial encounter (10/04/19) Physical Therapy Treatment Note PT-OP-A Visit Information Start: 07/12/19 11:08 Freq: Status: Active Protocol: Document 10/04/19 13:49 HH (Rec: 10/04/19 14:38 HH [id number]) Out-Patient Physical Therapy Visit Information Visit Information Visit Type Treatment Note Visit Start Time 13:49 Visit Stop Time 14:32 Total Visit Minutes 43 Visit Number 20/45 Number of BOTTLE HOP Visits 0 PT-OP-B Current Condition Start: 07/12/19 11:08 Freq: Status: Active Protocol: Document 07/13/19 11:24 AR (Rec: 07/13/19 12:12 AR [email or web address]) Current Condition History of Current Condition Onset Date 04/21/2019 Current Complaints L shoulder pain, weakness, and dec ROM History of Current Condition Pt reports she re-injured her L shoulder while closing the door of her car. She has suicide doors and her arm got caught in the door and was pulled behind her. She torn her RTC in 2004 and has had shoulder pain and weakness since then. Pt has a hx of MS and has had 3 falls in the past year. She has come to PT previously for balance training and is continuing to do balance and strengthening exercises at home. Pt also has hx of breast cancer and a L mastectomy and she believes that scar tissue may also be contributing to her shoulder pain. She stretches scar tissue daily. Pt is unable to lift anything heavier than 5 pounds and she is unable to turn off a light switch or close a door with her L hand. She has pain into hand and 3rd and 4th digit. She stated that no one can figure out what's wrong with my hand but also reported a dx of trigger finger. Pt has pain in palm of hand when her fingers aren 't working. Pt has a hx of neck pain and had surgery for carpal tunnel syndrome 2 years ago. Prior Treatments and Tests X-ray in 2004 after RTC injury , no fracture. Imaging for recent injury done at [facility] Treatment Goals Patient/Caregiver Goals Be able to use arm normally for lifting, closing doors. Be able to perform yoga stretches without shoulder pain. Personal Factors Other Personal Factors That May Effect Medical hx (MS, fall hx, Therapy/Recovery breast cancer, etc) PT-OP-C Subjective Start: 07/12/19 11:08 Freq: Status: Active Protocol: Document 10/04/19 13:49 HH (Rec: 10/04/19 14:38 HH [id number]) OP-PT Subjective Patient Comments Patient Comments I have been doing my exercises but I still have pain right in the middle of my biceps. I have been moving big bags of pellets for my stove at home. PT-OP-F Manual Assessment Start: 07/12/19 11:08 Freq: Status: Active Protocol: Document 07/13/19 11:24 AR (Rec: 07/13/19 12:12 AR [email or web address]) Manual Assessments Soft Tissue Assessment Soft Tissue Mobility Assessment Myofascial restrictions in ant & lateral deltoid, biceps, and pectorals. Muscle guarding in upper trapezius Joint Mobility Assessment Joint Mobility Assessment suspected AC joint hypomobility and dysnfunction, but was unable to assess mobility d/t pain and guarding in UT Other Manual Assessments Other Manual Assessments UE Neural Tension tests ( Radial, Median and Ulnar) all negative PT-OP-J Posture/Palpation/Skin Start: 07/12/19 11:08 Freq: Status: Active Protocol: Document 07/13/19 11:24 AR (Rec: 07/13/19 12:12 AR [email or web address]) Posture Evaluation Position Sitting Evaluation View Lateral Head/C-Spine Posture Forward Head Shoulder Posture (L) Rounded,(R) Rounded PT-OP-K Range of Motion Start: 07/12/19 11:08 Freq: Status: Active Protocol: Document 09/13/19 10:40 [facility] (Rec: 09/13/19 11:16 [facility] [id number]) Shoulder Goniometric Range of Motion Shoulder Left Flexion 150 Extension 50 Abduction 55 External Rotation at 0 degrees Abduction 61 Internal Rotation Behind Back (text) T12 PT-OP-L Special Tests Start: 07/12/19 11:08 Freq: Status: Active Protocol: Document 07/13/19 11:24 AR (Rec: 07/13/19 12:12 AR [email or web address]) Special Tests Shoulder Special Tests AC resisted extension Test Results negative Comments challenging to maintain position, but no pain AC Joint Compression Test Results positive Lateral Alek Test Results postive Comments indicative of RTC tear Speed's Biceps Test Results positive Estrada Renan Impingement Test Results positive Neer Impingement Test Results negative PT-OP-M Strength Start: 07/12/19 11:08 Freq: Status: Active Protocol: Document 09/13/19 10:40 LR (Rec: 09/13/19 11:16 LR [id number]) Shoulder Strength Shoulder Manual Muscle Testing Left Flexion 4+ Good+ Extension 5 Normal Abduction (C5) 3+ Fair+ External Rotation 4+ Good+ Internal Rotation 3 Fair PT-OP-Q Treatments Start: 07/12/19 11:08 Freq: Status: Active Protocol: Document 10/04/19 13:49 (Rec: 10/04/19 14:38 [id number]) Therapeutic Exercises Supine Exercises Pec & biceps stretch Side left Comments manual Sidelying Exercises arm perturbations Side left Comments 90dg abduction with cuing to keep still serratus anterior punch Side left Comments 90dg abduction scap Sidelying Exercise Name depression/elevation, protraction/retraction Side left Comments passive f/b active open book Side left Equipment Used 1 lb weight Comments to 90dg horizontal abd; cuing for scap retraction Sitting Exercises Scap Squeezes Side bilateral Comments irritation of biceps with squeezes Other Exercises scap push up Side bilateral Comments semi-standing with table support f.b standing with wall support Manual Therapy Treatment Soft Tissue Mobilization pec Body Location L Mobilization Type Myofascial Release,Rolling Intensity/Depth Superficial Biceps Body Location L biceps Mobilization Type Cross-Friction,Rolling, Strumming,Sustained Pressure Intensity/Depth Moderate Body Position Supine PT-OP-R Modalities Start: 07/12/19 11:08 Freq: Status: Active Protocol: Document 10/04/19 13:49 (Rec: 10/04/19 14:38 [id number]) Hot Pack/Cold Pack Treatment Cold Pack Location left shoulder Patient Position Hooklying Treatment Duration (minutes) 10 Patient Tolerance Good PT-OP-T Assessment and Plan Start: 07/12/19 11:08 Freq: Status: Active Protocol: Document 10/04/19 13:49 (Rec: 10/04/19 14:38 [id number]) Physical Therapy Assessment Goals ROM Impairment decreased and painful ROM Short Term Goal (STG) Pt will improve abduction ROM to at least 140 deg and IR to L5/S1 level w/o pain and with proper scapular mechanics. 09/13-able to do IR STG Duration 10/14/19 Prison Goal (LTG) Pt will demonstrate L shoulder ROM within normal limits to be able to perform daily activities. 09/13-improving ability at home LTG Duration 11/13/19 Lifting Impairment pt unable to lift more than 5 lbs Short Term Goal (STG) Pt will be able to lift 5 lbs to 45 deg abd with proper scapular mechanics. STG Duration 10/20/19 Prison Goal (LTG) Pt will be able to lift 10 lbs without shoulder shrug and with proper scapular mechanics . 09/13-pt able to lift 10lbs but deos require ceuing for scap mechanics LTG Duration 11/12/19 Strength Impairment weakness Short Term Goal (STG) Pt will be compliant with HEP. STG Duration achieved Manager Grant Goal (LTG) Pt will inc all shoulder MMTs to at least 4/5 to be able to perform daily activities. 09/13- improving LTG Duration 11/13/19 Assessment Summary Assessment Pt demonstrates pain in proximal biceps with biceps MMT, stretch, and palpation. Discussed strategies to minimize biceps irritaiton when lifting and carrying heavy objects. Improving control of scapular open chain movements but cont difficulty with smoothness of movement. Unable to protract/retract scapula in closed chain Physical Therapy Plan Next Visit Focus/Plan Next Note Type Treatment Note Next Visit Plan reassess biceps sx continue to work on scapular control and awareness exercises, scapular PNF, neck ROM and STM
--- NOTE | 2019-10-07 15:20 | PT.OTN ---
Current Diagnoses Stiffness of left shoulder, not elsewhere classified (10/07/19) Abnormal posture (10/07/19) Weakness (10/07/19) Strain of other muscles, fascia and tendons at shoulder and upper arm level, unspecified arm, initial encounter (10/07/19) Physical Therapy Treatment Note PT-OP-A Visit Information Start: 07/12/19 11:08 Freq: Status: Active Protocol: Document 10/07/19 15:20 SP (Rec: 10/07/19 16:14 SP [email or web address]) Out-Patient Physical Therapy Visit Information Visit Information Visit Type Treatment Note Visit Start Time 14:34 Visit Stop Time 15:20 Total Visit Minutes 44 Visit Number 21/45 Number of ORTHOPEDIC SHOE MAKER Visits 1 PT-OP-B Current Condition Start: 07/12/19 11:08 Freq: Status: Active Protocol: Document 07/13/19 11:24 AR (Rec: 07/13/19 12:12 AR [email or web address]) Current Condition History of Current Condition Onset Date 04/21/2019 Current Complaints L shoulder pain, weakness, and dec ROM History of Current Condition Pt reports she re-injured her L shoulder while closing the door of her car. She has suicide doors and her arm got caught in the door and was pulled behind her. She torn her RTC in 2004 and has had shoulder pain and weakness since then. Pt has a hx of MS and has had 3 falls in the past year. She has come to PT previously for balance training and is continuing to do balance and strengthening exercises at home. Pt also has hx of breast cancer and a L mastectomy and she believes that scar tissue may also be contributing to her shoulder pain. She stretches scar tissue daily. Pt is unable to lift anything heavier than 5 pounds and she is unable to turn off a light switch or close a door with her L hand. She has pain into hand and 3rd and 4th digit. She stated that no one can figure out what's wrong with my hand but also reported a dx of trigger finger. Pt has pain in palm of hand when her fingers aren 't working. Pt has a hx of neck pain and had surgery for carpal tunnel syndrome 2 years ago. Prior Treatments and Tests X-ray in 2004 after RTC injury , no fracture. Imaging for recent injury done at [facility] Treatment Goals Patient/Caregiver Goals Be able to use arm normally for lifting, closing doors. Be able to perform yoga stretches without shoulder pain. Personal Factors Other Personal Factors That May Effect Medical hx (MS, fall hx, Therapy/Recovery breast cancer, etc) PT-OP-C Subjective Start: 07/12/19 11:08 Freq: Status: Active Protocol: Document 10/07/19 15:20 SP (Rec: 10/07/19 16:14 SP [email or web address]) OP-PT Subjective Patient Comments Patient Comments I am doing my exercises, very body unaware, unsure if doing correctly. 0/10 pre PT today . PT-OP-F Manual Assessment Start: 07/12/19 11:08 Freq: Status: Active Protocol: Document 07/13/19 11:24 AR (Rec: 07/13/19 12:12 AR [email or web address]) Manual Assessments Soft Tissue Assessment Soft Tissue Mobility Assessment Myofascial restrictions in ant & lateral deltoid, biceps, and pectorals. Muscle guarding in upper trapezius Joint Mobility Assessment Joint Mobility Assessment suspected AC joint hypomobility and dysnfunction, but was unable to assess mobility d/t pain and guarding in UT Other Manual Assessments Other Manual Assessments UE Neural Tension tests ( Radial, Median and Ulnar) all negative PT-OP-J Posture/Palpation/Skin Start: 07/12/19 11:08 Freq: Status: Active Protocol: Document 07/13/19 11:24 AR (Rec: 07/13/19 12:12 AR [email or web address]) Posture Evaluation Position Sitting Evaluation View Lateral Head/C-Spine Posture Forward Head Shoulder Posture (L) Rounded,(R) Rounded PT-OP-K Range of Motion Start: 07/12/19 11:08 Freq: Status: Active Protocol: Document 09/13/19 10:40 [facility] (Rec: 09/13/19 11:16 [facility] [id number]) Shoulder Goniometric Range of Motion Shoulder Left Flexion 150 Extension 50 Abduction 55 External Rotation at 0 degrees Abduction 61 Internal Rotation Behind Back (text) T12 PT-OP-L Special Tests Start: 07/12/19 11:08 Freq: Status: Active Protocol: Document 07/13/19 11:24 AR (Rec: 07/13/19 12:12 AR [email or web address]) Special Tests Shoulder Special Tests AC resisted extension Test Results negative Comments challenging to maintain position, but no pain AC Joint Compression Test Results positive Lateral Alek Test Results postive Comments indicative of RTC tear Speed's Biceps Test Results positive Estrada Renan Impingement Test Results positive Neer Impingement Test Results negative PT-OP-M Strength Start: 07/12/19 11:08 Freq: Status: Active Protocol: Document 09/13/19 10:40 [facility] (Rec: 09/13/19 11:16 [facility] [id number]) Shoulder Strength Shoulder Manual Muscle Testing Left Flexion 4+ Good+ Extension 5 Normal Abduction (C5) 3+ Fair+ External Rotation 4+ Good+ Internal Rotation 3 Fair PT-OP-Q Treatments Start: 07/12/19 11:08 Freq: Status: Active Protocol: Document 10/07/19 15:20 SP (Rec: 10/07/19 16:14 SP [email or web address]) Therapeutic Exercises Prone Exercises scap traction, CS head lift Resistance AROM Reps/Minutes 5 sec x5 scaption Prone Exercise Name scap retraction/depression Resistance AROM Reps/Minutes 5 sec x5 Comments head contact table Sidelying Exercises serratus anterior punch Side left Reps/Minutes 3x8 Comments 90dg abduction Sitting Exercises overhead nadeem Sitting Exercise Name FF, ABD Side left Reps/Minutes x10 each direction Comments cued for ER (thumb facing back ), neutral CS, decrease shld elevation Scap Squeezes Sitting Exercise Name postural sitting Side bilateral Reps/Minutes 5 sec hold x10 Comments chest lift, head nod CS retraction to neutral Standing Exercises resisted ext Side left Resistance Level 1 TB Reps/Minutes 2x10 Comments Cued ext to side leg seam, depression slide toward knee ( decrease protract) PT-OP-R Modalities Start: 07/12/19 11:08 Freq: Status: Active Protocol: Document 10/04/19 13:49 HH (Rec: 10/04/19 14:38 HH [id number]) Hot Pack/Cold Pack Treatment Cold Pack Location left shoulder Patient Position Hooklying Treatment Duration (minutes) 10 Patient Tolerance Good PT-OP-T Assessment and Plan Start: 07/12/19 11:08 Freq: Status: Active Protocol: Document 10/07/19 15:20 SP (Rec: 10/07/19 16:14 SP [email or web address]) Physical Therapy Assessment Goals ROM Impairment decreased and painful ROM Short Term Goal (STG) Pt will improve abduction ROM to at least 140 deg and IR to L5/S1 level w/o pain and with proper scapular mechanics. 09/13-able to do IR STG Duration 10/14/19 Alf Goal (LTG) Pt will demonstrate L shoulder ROM within normal limits to be able to perform daily activities. 09/13-improving ability at home LTG Duration 11/13/19 Lifting Impairment pt unable to lift more than 5 lbs Short Term Goal (STG) Pt will be able to lift 5 lbs to 45 deg abd with proper scapular mechanics. STG Duration 10/20/19 Alf Goal (LTG) Pt will be able to lift 10 lbs without shoulder shrug and with proper scapular mechanics . 09/13-pt able to lift 10lbs but deos require ceuing for scap mechanics LTG Duration 11/12/19 Strength Impairment weakness Short Term Goal (STG) Pt will be compliant with HEP. STG Duration achieved Alf Goal (LTG) Pt will inc all shoulder MMTs to at least 4/5 to be able to perform daily activities. 09/13- improving LTG Duration 11/13/19 Assessment Summary Assessment Pt required max cues for scap stabilization, initiated prone for self feel contraction, applied sitting then standing TB with mirror for self feedback with improvement in demonstration. I can see it, will use the mirror at home. Physical Therapy Plan Frequency and Duration Frequency of Treatment 2x/Week Duration of Treatment 2 months Plan of Care Start Date 09/13/19 Plan of Care End Date 11/13/19 Therapeutic Interventions Therapeutic Interventions Aquatic Therapy,Home Exercise Program,Joint Mobilizations, Manual Therapy,Neuromuscular Re-education,Patient/Caregiver Education,Self-Care/Home Management,Soft Tissue Mobilization,Taping, Therapeutic Activities, Therapeutic Exercises Modalities Cold Pack/Ice Massage,Electric Stimulation,Hot Packs, Infrared Therapy,Iontophoresis ,Ultrasound Next Visit Focus/Plan Next Note Type Treatment Note Next Visit Plan Continue progress scap control and body awareness exercises, progress strengthening tolerated. Utilize mirror if possible.
--- NOTE | 2019-10-11 16:44 | PT.OTN ---
Current Diagnoses Stiffness of left shoulder, not elsewhere classified (10/11/19) Abnormal posture (10/11/19) Weakness (10/11/19) Strain of other muscles, fascia and tendons at shoulder and upper arm level, unspecified arm, initial encounter (10/11/19) Physical Therapy Treatment Note PT-OP-A Visit Information Start: 07/12/19 11:08 Freq: Status: Active Protocol: Document 10/11/19 13:46 MT (Rec: 10/11/19 14:46 MT [id number]) Out-Patient Physical Therapy Visit Information Visit Information Visit Type Treatment Note Visit Start Time 13:46 Visit Stop Time 14:40 Total Visit Minutes 54 Visit Number 22/45 Number of DIETITIAN THERAPEUTIC Visits 0 PT-OP-B Current Condition Start: 07/12/19 11:08 Freq: Status: Active Protocol: Document 07/13/19 11:24 AR (Rec: 07/13/19 12:12 AR [email or web address]) Current Condition History of Current Condition Onset Date 04/21/2019 Current Complaints L shoulder pain, weakness, and dec ROM History of Current Condition Pt reports she re-injured her L shoulder while closing the door of her car. She has suicide doors and her arm got caught in the door and was pulled behind her. She torn her RTC in 2004 and has had shoulder pain and weakness since then. Pt has a hx of MS and has had 3 falls in the past year. She has come to PT previously for balance training and is continuing to do balance and strengthening exercises at home. Pt also has hx of breast cancer and a L mastectomy and she believes that scar tissue may also be contributing to her shoulder pain. She stretches scar tissue daily. Pt is unable to lift anything heavier than 5 pounds and she is unable to turn off a light switch or close a door with her L hand. She has pain into hand and 3rd and 4th digit. She stated that no one can figure out what's wrong with my hand but also reported a dx of trigger finger. Pt has pain in palm of hand when her fingers aren 't working. Pt has a hx of neck pain and had surgery for carpal tunnel syndrome 2 years ago. Prior Treatments and Tests X-ray in 2004 after RTC injury , no fracture. Imaging for recent injury done at [facility] Treatment Goals Patient/Caregiver Goals Be able to use arm normally for lifting, closing doors. Be able to perform yoga stretches without shoulder pain. Personal Factors Other Personal Factors That May Effect Medical hx (MS, fall hx, Therapy/Recovery breast cancer, etc) PT-OP-C Subjective Start: 07/12/19 11:08 Freq: Status: Active Protocol: Document 10/11/19 13:46 MT (Rec: 10/11/19 14:46 MT [id number]) OP-PT Subjective Patient Comments Patient Comments Pt reports that she is doing her exercises. Her bicep region continues to have pain , but is less. She still struggles with activities such as getting dressed. PT-OP-F Manual Assessment Start: 07/12/19 11:08 Freq: Status: Active Protocol: Document 07/13/19 11:24 AR (Rec: 07/13/19 12:12 AR [email or web address]) Manual Assessments Soft Tissue Assessment Soft Tissue Mobility Assessment Myofascial restrictions in ant & lateral deltoid, biceps, and pectorals. Muscle guarding in upper trapezius Joint Mobility Assessment Joint Mobility Assessment suspected AC joint hypomobility and dysnfunction, but was unable to assess mobility d/t pain and guarding in [place] Other Manual Assessments Other Manual Assessments UE Neural Tension tests ( Radial, Median and Ulnar) all negative PT-OP-J Posture/Palpation/Skin Start: 07/12/19 11:08 Freq: Status: Active Protocol: Document 07/13/19 11:24 AR (Rec: 07/13/19 12:12 AR [email or web address]) Posture Evaluation Position Sitting Evaluation View Lateral Head/C-Spine Posture Forward Head Shoulder Posture (L) Rounded,(R) Rounded PT-OP-K Range of Motion Start: 07/12/19 11:08 Freq: Status: Active Protocol: Document 09/13/19 10:40 [facility] (Rec: 09/13/19 11:16 [facility] [id number]) Shoulder Goniometric Range of Motion Shoulder Left Flexion 150 Extension 50 Abduction 55 External Rotation at 0 degrees Abduction 61 Internal Rotation Behind Back (text) T12 PT-OP-L Special Tests Start: 07/12/19 11:08 Freq: Status: Active Protocol: Document 07/13/19 11:24 AR (Rec: 07/13/19 12:12 AR [email or web address]) Special Tests Shoulder Special Tests AC resisted extension Test Results negative Comments challenging to maintain position, but no pain AC Joint Compression Test Results positive Lateral Alek Test Results postive Comments indicative of RTC tear Speed's Biceps Test Results positive Estrada Renan Impingement Test Results positive Neer Impingement Test Results negative PT-OP-M Strength Start: 07/12/19 11:08 Freq: Status: Active Protocol: Document 09/13/19 10:40 [facility] (Rec: 09/13/19 11:16 [facility] [id number]) Shoulder Strength Shoulder Manual Muscle Testing Left Flexion 4+ Good+ Extension 5 Normal Abduction (C5) 3+ Fair+ External Rotation 4+ Good+ Internal Rotation 3 Fair PT-OP-Q Treatments Start: 07/12/19 11:08 Freq: Status: Active Protocol: Document 10/11/19 13:46 MT (Rec: 10/11/19 14:46 MT [id number]) Therapeutic Exercises Supine Exercises retraction Side bilateral Reps/Minutes 20 Comments cueing to push PT hand behind scap into table serratus punch Side bilateral Reps/Minutes 20 Comments pt reported pain beyond a certain ROM Sitting Exercises overhead nadeem Sitting Exercise Name FF, ABD Side left Reps/Minutes x10 each direction Comments cued for ER (thumb facing back ), neutral CS, decrease shld elevation Standing Exercises wall posture Standing Exercise Name w/ scapular setting Side bilateral Comments cueing to avoid lordosis resisted ext Side left Resistance L2 Comments cued for scap motion and decreased compensation resisted ER Side left Resistance L1 resisted IR Side left Resistance L1 rows Resistance none Reps/Minutes 20 Comments aggravated pain in pt bicep area with ext beyond neutral scap retraction Standing Exercise Name serratus push ups at wall Side bilateral Reps/Minutes 20 Comments pt struggled to coordinate movement - moved to supine Manual Therapy Treatment Soft Tissue Mobilization pec Body Location L Mobilization Type Myofascial Release,Rolling, Strumming,Sustained Pressure Intensity/Depth Superficial Body Position Supine Joint Mobilizations GH Joint inferior/lateral glide, distraction Grade III Body Position Hooklying PT-OP-R Modalities Start: 07/12/19 11:08 Freq: Status: Active Protocol: Document 10/11/19 13:46 MT (Rec: 10/11/19 14:46 MT [id number]) Hot Pack/Cold Pack Treatment Cold Pack Location left shoulder Patient Position Hooklying Treatment Duration (minutes) 10 Patient Tolerance Good PT-OP-T Assessment and Plan Start: 07/12/19 11:08 Freq: Status: Active Protocol: Document 10/11/19 13:46 MT (Rec: 10/11/19 14:46 MT [id number]) Physical Therapy Assessment Goals ROM Impairment decreased and painful ROM Short Term Goal (STG) Pt will improve abduction ROM to at least 140 deg and IR to L5/S1 level w/o pain and with proper scapular mechanics. 09/13-able to do IR STG Duration 10/14/19 Heater Operator Helper Goal (LTG) Pt will demonstrate L shoulder ROM within normal limits to be able to perform daily activities. 09/13-improving ability at home LTG Duration 11/13/19 Lifting Impairment pt unable to lift more than 5 lbs Short Term Goal (STG) Pt will be able to lift 5 lbs to 45 deg abd with proper scapular mechanics. STG Duration 10/20/19 Heater Operator Helper Goal (LTG) Pt will be able to lift 10 lbs without shoulder shrug and with proper scapular mechanics . 09/13-pt able to lift 10lbs but deos require ceuing for scap mechanics LTG Duration 11/12/19 Strength Impairment weakness Short Term Goal (STG) Pt will be compliant with HEP. STG Duration achieved Skilled Nursing Goal (LTG) Pt will inc all shoulder MMTs to at least 4/5 to be able to perform daily activities. 09/13- improving LTG Duration 11/13/19 Assessment Summary Assessment Pt was able to perform her shoulder stabilization exercises with much less cueing about proper scapular motion. She requires frequent cueing for less familiar positions or exercises about proprer motion or mechanics. Pt struggled with rows today and seemed to have less sapular control and more pain when her elbow was bent vs straight. Pt's painfree ROM in her shoulder is increasing. Physical Therapy Plan Frequency and Duration Frequency of Treatment 2x/Week Duration of Treatment 2 months Plan of Care Start Date 09/13/19 Plan of Care End Date 11/13/19 Next Visit Focus/Plan Next Note Type Treatment Note Next Visit Plan review any exercises from HEP that pt has questions on, continue with scapular stabilization exercises and shoulder strenghtening
--- NOTE | 2019-10-14 13:45 | PT.OTN ---
Current Diagnoses Stiffness of left shoulder, not elsewhere classified (10/14/19) Abnormal posture (10/14/19) Weakness (10/14/19) Strain of other muscles, fascia and tendons at shoulder and upper arm level, unspecified arm, initial encounter (10/14/19) Physical Therapy Treatment Note PT-OP-A Visit Information Start: 07/12/19 11:08 Freq: Status: Active Protocol: Document 10/14/19 13:00 SP (Rec: 10/14/19 13:48 SP [id number]) Out-Patient Physical Therapy Visit Information Visit Information Visit Type Treatment Note Visit Start Time 13:00 Visit Stop Time 13:45 Total Visit Minutes 45 Visit Number Number of SENIOR LEAD SOFTWARE ENGINEER Visits 1 PT-OP-B Current Condition Start: 07/12/19 11:08 Freq: Status: Active Protocol: Document 07/13/19 11:24 AR (Rec: 07/13/19 12:12 AR [email or web address]) Current Condition History of Current Condition Onset Date 04/21/2019 Current Complaints L shoulder pain, weakness, and dec ROM History of Current Condition Pt reports she re-injured her L shoulder while closing the door of her car. She has suicide doors and her arm got caught in the door and was pulled behind her. She torn her RTC in 2004 and has had shoulder pain and weakness since then. Pt has a hx of MS and has had 3 falls in the past year. She has come to PT previously for balance training and is continuing to do balance and strengthening exercises at home. Pt also has hx of breast cancer and a L mastectomy and she believes that scar tissue may also be contributing to her shoulder pain. She stretches scar tissue daily. Pt is unable to lift anything heavier than 5 pounds and she is unable to turn off a light switch or close a door with her L hand. She has pain into hand and 3rd and 4th digit. She stated that no one can figure out what's wrong with my hand but also reported a dx of trigger finger. Pt has pain in palm of hand when her fingers aren 't working. Pt has a hx of neck pain and had surgery for carpal tunnel syndrome 2 years ago. Prior Treatments and Tests X-ray in 2004 after RTC injury , no fracture. Imaging for recent injury done at [facility] Treatment Goals Patient/Caregiver Goals Be able to use arm normally for lifting, closing doors. Be able to perform yoga stretches without shoulder pain. Personal Factors Other Personal Factors That May Effect Medical hx (MS, fall hx, Therapy/Recovery breast cancer, etc) PT-OP-C Subjective Start: 07/12/19 11:08 Freq: Status: Active Protocol: Document 10/14/19 13:00 SP (Rec: 10/14/19 13:48 SP [id number]) OP-PT Subjective Patient Comments Patient Comments Pt reports feeling alisa no pain. Pt stated the HEP like rows are challenging, want to review rows, scap retraction at wall, don't think doing right. PT-OP-F Manual Assessment Start: 07/12/19 11:08 Freq: Status: Active Protocol: Document 07/13/19 11:24 AR (Rec: 07/13/19 12:12 AR [email or web address]) Manual Assessments Soft Tissue Assessment Soft Tissue Mobility Assessment Myofascial restrictions in ant & lateral deltoid, biceps, and pectorals. Muscle guarding in upper trapezius Joint Mobility Assessment Joint Mobility Assessment suspected AC joint hypomobility and dysnfunction, but was unable to assess mobility d/t pain and guarding in [place] Other Manual Assessments Other Manual Assessments UE Neural Tension tests ( Radial, Median and Ulnar) all negative PT-OP-J Posture/Palpation/Skin Start: 07/12/19 11:08 Freq: Status: Active Protocol: Document 07/13/19 11:24 AR (Rec: 07/13/19 12:12 AR [email or web address]) Posture Evaluation Position Sitting Evaluation View Lateral Head/C-Spine Posture Forward Head Shoulder Posture (L) Rounded,(R) Rounded PT-OP-K Range of Motion Start: 07/12/19 11:08 Freq: Status: Active Protocol: Document 09/13/19 10:40 [facility] (Rec: 09/13/19 11:16 [facility] [id number]) Shoulder Goniometric Range of Motion Shoulder Left Flexion 150 Extension 50 Abduction 55 External Rotation at 0 degrees Abduction 61 Internal Rotation Behind Back (text) T12 PT-OP-L Special Tests Start: 07/12/19 11:08 Freq: Status: Active Protocol: Document 07/13/19 11:24 AR (Rec: 07/13/19 12:12 AR [email or web address]) Special Tests Shoulder Special Tests AC resisted extension Test Results negative Comments challenging to maintain position, but no pain AC Joint Compression Test Results positive Lateral Alek Test Results postive Comments indicative of RTC tear Speed's Biceps Test Results positive Estrada Renan Impingement Test Results positive Neer Impingement Test Results negative PT-OP-M Strength Start: 07/12/19 11:08 Freq: Status: Active Protocol: Document 09/13/19 10:40 [facility] (Rec: 09/13/19 11:16 [facility]H [id number]) Shoulder Strength Shoulder Manual Muscle Testing Left Flexion 4+ Good+ Extension 5 Normal Abduction (C5) 3+ Fair+ External Rotation 4+ Good+ Internal Rotation 3 Fair PT-OP-Q Treatments Start: 07/12/19 11:08 Freq: Status: Active Protocol: Document 10/14/19 13:00 SP (Rec: 10/14/19 13:48 SP [id number]) Therapeutic Exercises Prone Exercises scaption Prone Exercise Name prone scap retraction/dep and head lift (nod) Reps/Minutes 5 sec hold x5 scap, x5 with head lift Comments cued not over retract and use arms, CS neutral lift Standing Exercises ext Side bilateral Equipment Used TB level 1 Reps/Minutes 2 sec 2x10 rows Resistance 0 initially, Lev 1 Tb x10 Reps/Minutes 5 sec hold x10 each Comments aggravated pain in pt bicep if scap glided forward scap retraction Standing Exercise Name facing mirror Equipment Used mirror Reps/Minutes 5 sec hold x5 Comments better post prone demo Manual Therapy Treatment Soft Tissue Mobilization Biceps Body Location L bicep and distal deltoid Mobilization Type Myofascial Release,Strumming, Sustained Pressure Intensity/Depth Moderate Body Position Supine PT-OP-R Modalities Start: 07/12/19 11:08 Freq: Status: Active Protocol: Document 10/14/19 13:00 SP (Rec: 10/14/19 13:48 SP [id number]) Hot Pack/Cold Pack Treatment Cold Pack Location left shoulder Patient Position Hooklying Treatment Duration (minutes) 10 Patient Tolerance Good PT-OP-T Assessment and Plan Start: 07/12/19 11:08 Freq: Status: Active Protocol: Document 10/14/19 13:00 SP (Rec: 10/14/19 13:48 SP [id number]) Physical Therapy Assessment Goals ROM Impairment decreased and painful ROM Short Term Goal (STG) Pt will improve abduction ROM to at least 140 deg and IR to L5/S1 level w/o pain and with proper scapular mechanics. 09/13-able to do IR STG Duration 10/14/19 Assisted Goal (LTG) Pt will demonstrate L shoulder ROM within normal limits to be able to perform daily activities. 09/13-improving ability at home LTG Duration 11/13/19 Lifting Impairment pt unable to lift more than 5 lbs Short Term Goal (STG) Pt will be able to lift 5 lbs to 45 deg abd with proper scapular mechanics. STG Duration 10/20/19 [employer] Experience Strategy Goal (LTG) Pt will be able to lift 10 lbs without shoulder shrug and with proper scapular mechanics . 09/13-pt able to lift 10lbs but deos require ceuing for scap mechanics LTG Duration 11/12/19 Strength Impairment weakness Short Term Goal (STG) Pt will be compliant with HEP. STG Duration achieved [employer] Experience Strategy Goal (LTG) Pt will inc all shoulder MMTs to at least 4/5 to be able to perform daily activities. 09/13- improving LTG Duration 11/13/19 Assessment Summary Assessment Tx focused on scap stab today. Initially prone with contact and verbal feedback then transitioned to mirror for self feedback AROM and progressed to TB lev1 with continued cuing. Pt was able to self correct and decreased L bicep and deltoid recruitment discomfort. Pt reported distal deltoid achy after the CP. Feels more confident with rows and scap retraction. Physical Therapy Plan Frequency and Duration Frequency of Treatment 2x/Week Duration of Treatment 2 months Plan of Care Start Date 09/13/19 Plan of Care End Date 11/13/19 Therapeutic Interventions Therapeutic Interventions Aquatic Therapy,Home Exercise Program,Joint Mobilizations, Manual Therapy,Neuromuscular Re-education,Patient/Caregiver Education,Self-Care/Home Management,Soft Tissue Mobilization,Taping, Therapeutic Activities, Therapeutic Exercises Modalities Cold Pack/Ice Massage,Electric Stimulation,Hot Packs, Infrared Therapy,Iontophoresis ,Ultrasound Next Visit Focus/Plan Next Note Type Treatment Note Next Visit Plan Review scap stab and added prone feedback and mirror for decreased arm recruitment discomfort. continue with scapular stabilization exercises and shoulder strenghtening
--- NOTE | 2019-10-21 13:45 | PT.OTN ---
Current Diagnoses Stiffness of left shoulder, not elsewhere classified (10/21/19) Abnormal posture (10/21/19) Weakness (10/21/19) Strain of other muscles, fascia and tendons at shoulder and upper arm level, unspecified arm, initial encounter (10/21/19) Physical Therapy Treatment Note PT-OP-A Visit Information Start: 07/12/19 11:08 Freq: Status: Active Protocol: Document 10/21/19 13:06 SP (Rec: 10/21/19 13:23 SP [id number]) Out-Patient Physical Therapy Visit Information Visit Information Visit Type Treatment Note Visit Start Time 13:06 Visit Stop Time 13:45 Total Visit Minutes 39 Visit Number Number of AUTO TIRE RECAPPER Visits 2 PT-OP-B Current Condition Start: 07/12/19 11:08 Freq: Status: Active Protocol: Document 07/13/19 11:24 AR (Rec: 07/13/19 12:12 AR [email or web address]) Current Condition History of Current Condition Onset Date 04/21/2019 Current Complaints L shoulder pain, weakness, and dec ROM History of Current Condition Pt reports she re-injured her L shoulder while closing the door of her car. She has suicide doors and her arm got caught in the door and was pulled behind her. She torn her RTC in 2004 and has had shoulder pain and weakness since then. Pt has a hx of MS and has had 3 falls in the past year. She has come to PT previously for balance training and is continuing to do balance and strengthening exercises at home. Pt also has hx of breast cancer and a L mastectomy and she believes that scar tissue may also be contributing to her shoulder pain. She stretches scar tissue daily. Pt is unable to lift anything heavier than 5 pounds and she is unable to turn off a light switch or close a door with her L hand. She has pain into hand and 3rd and 4th digit. She stated that no one can figure out what's wrong with my hand but also reported a dx of trigger finger. Pt has pain in palm of hand when her fingers aren 't working. Pt has a hx of neck pain and had surgery for carpal tunnel syndrome 2 years ago. Prior Treatments and Tests X-ray in 2004 after RTC injury , no fracture. Imaging for recent injury done at [facility] Treatment Goals Patient/Caregiver Goals Be able to use arm normally for lifting, closing doors. Be able to perform yoga stretches without shoulder pain. Personal Factors Other Personal Factors That May Effect Medical hx (MS, fall hx, Therapy/Recovery breast cancer, etc) PT-OP-C Subjective Start: 07/12/19 11:08 Freq: Status: Active Protocol: Document 10/21/19 13:06 SP (Rec: 10/21/19 13:23 SP [id number]) OP-PT Subjective Patient Comments Patient Comments Pt reports L shld doing well and think today will be last appt. If needed will call and have new referral submitted. Pt stated feels able to complete all HEP with I and hand outs for recall. PT-OP-F Manual Assessment Start: 07/12/19 11:08 Freq: Status: Active Protocol: Document 07/13/19 11:24 AR (Rec: 07/13/19 12:12 AR [email or web address]) Manual Assessments Soft Tissue Assessment Soft Tissue Mobility Assessment Myofascial restrictions in ant & lateral deltoid, biceps, and pectorals. Muscle guarding in upper trapezius Joint Mobility Assessment Joint Mobility Assessment suspected AC joint hypomobility and dysnfunction, but was unable to assess mobility d/t pain and guarding in [place] Other Manual Assessments Other Manual Assessments UE Neural Tension tests ( Radial, Median and Ulnar) all negative PT-OP-J Posture/Palpation/Skin Start: 07/12/19 11:08 Freq: Status: Active Protocol: Document 07/13/19 11:24 AR (Rec: 07/13/19 12:12 AR [email or web address]) Posture Evaluation Position Sitting Evaluation View Lateral Head/C-Spine Posture Forward Head Shoulder Posture (L) Rounded,(R) Rounded PT-OP-K Range of Motion Start: 07/12/19 11:08 Freq: Status: Active Protocol: Document 10/21/19 13:06 SP (Rec: 10/21/19 13:37 SP [id number]) Shoulder Goniometric Range of Motion Shoulder Left Testing Position Standing Flexion 155 Extension 50 Abduction 135 External Rotation at 0 degrees Abduction 88 Internal Rotation Behind Back (text) T10 Right Shoulder ROM WFL Yes PT-OP-L Special Tests Start: 07/12/19 11:08 Freq: Status: Active Protocol: Document 07/13/19 11:24 AR (Rec: 07/13/19 12:12 AR [email or web address]) Special Tests Shoulder Special Tests AC resisted extension Test Results negative Comments challenging to maintain position, but no pain AC Joint Compression Test Results positive Lateral Alek Test Results postive Comments indicative of RTC tear Speed's Biceps Test Results positive Estrada Renan Impingement Test Results positive Neer Impingement Test Results negative PT-OP-M Strength Start: 07/12/19 11:08 Freq: Status: Active Protocol: Document 10/21/19 13:06 SP (Rec: 10/21/19 13:37 SP [id number]) Shoulder Strength Shoulder Manual Muscle Testing Left Flexion 4+ Good+ Extension 5 Normal Abduction (C5) 3+ Fair+ External Rotation 4+ Good+ Internal Rotation 3+ Fair+ Right Flexion 5 Normal Extension 5 Normal Abduction (C5) 5 Normal External Rotation 5 Normal Internal Rotation 5 Normal PT-OP-Q Treatments Start: 07/12/19 11:08 Freq: Status: Active Protocol: Document 10/21/19 13:06 SP (Rec: 10/21/19 13:23 SP [id number]) Cardio Equipment Upper Body Ergometer (UBE) Duration (Minutes) 4 RPM 120 Other 2 min f/b Therapeutic Exercises Sitting Exercises overhead nadeem Sitting Exercise Name FF, ABD Side left Reps/Minutes 2 min each direction Comments cued for ER (thumb facing back ), neutral CS, decrease shld elevation Standing Exercises OH lift wt Standing Exercise Name Assess Goal Side left Resistance 5# DB x2 reps FF & ABD, 10# x1 rep FF but ABD needed RUE support Comments assimulate putting 5# and 10# ok shelf at head height PT-OP-R Modalities Start: 07/12/19 11:08 Freq: Status: Active Protocol: Document 10/21/19 13:06 SP (Rec: 10/21/19 13:23 SP [id number]) Hot Pack/Cold Pack Treatment Cold Pack Location left shoulder Patient Position Hooklying Treatment Duration (minutes) 10 Patient Tolerance Good PT-OP-T Assessment and Plan Start: 07/12/19 11:08 Freq: Status: Active Protocol: Document 10/21/19 13:06 SP (Rec: 10/21/19 13:23 SP [id number]) Physical Therapy Assessment Goals ROM Impairment decreased and painful ROM Short Term Goal (STG) Pt will improve abduction ROM to at least 140 deg and IR to L5/S1 level w/o pain and with proper scapular mechanics. 09/13-able to do IR. STG Duration 10/14/19 Residential Goal (LTG) Pt will demonstrate L shoulder ROM within normal limits to be able to perform daily activities. 09/13-improving ability at home LTG Duration 11/13/19 Lifting Impairment pt unable to lift more than 5 lbs Short Term Goal (STG) Pt will be able to lift 5 lbs to 45 deg abd with proper scapular mechanics. STG Duration 10/20/19 Residential Goal (LTG) Pt will be able to lift 10 lbs without shoulder shrug and with proper scapular mechanics . 09/13-pt able to lift 10lbs but deos require ceuing for scap mechanics LTG Duration 11/12/19 Strength Impairment weakness Short Term Goal (STG) Pt will be compliant with HEP. STG Duration achieved Copy Worker Goal (LTG) Pt will inc all shoulder MMTs to at least 4/5 to be able to perform daily activities. 09/13- improving LTG Duration 11/13/19 Assessment Summary Assessment Tx focused on warm up UBE and Pulleys then reassessed ROM measurements and MMT of L shld . Pt does not have anymore appts and felt ready to DC. AUTO TIRE RECAPPER will notify PT regarding DC. Pt made gains in ROM: >5*, ABD 80*, ER 27*, IR 2 LS vertrebra and ext same ROM as when last assessed but has not met FROM. Pt feels and has demonstrated I in HEP and improved self corrections to provide scapular stabilization . Pt reported no pain just soreness end of today's tx. Added IR stretch behind back to assist self improvement in IR with positive feedback. Physical Therapy Plan Frequency and Duration Frequency of Treatment 2x/Week Duration of Treatment 2 months Plan of Care Start Date 09/13/19 Plan of Care End Date 11/13/19 Therapeutic Interventions Therapeutic Interventions Aquatic Therapy,Home Exercise Program,Joint Mobilizations, Manual Therapy,Neuromuscular Re-education,Patient/Caregiver Education,Self-Care/Home Management,Soft Tissue Mobilization,Taping, Therapeutic Activities, Therapeutic Exercises Modalities Cold Pack/Ice Massage,Electric Stimulation,Hot Packs, Infrared Therapy,Iontophoresis ,Ultrasound Next Visit Focus/Plan Next Note Type Discharge Summary Next Visit Plan Pt requested today be last day and ready for discharge, I HEP and complete assessment today.
--- NOTE | 2019-10-24 09:02 | PT.OPDS ---
Current Diagnoses Stiffness of left shoulder, not elsewhere classified (10/21/19) Abnormal posture (10/21/19) Weakness (10/21/19) Strain of other muscles, fascia and tendons at shoulder and upper arm level, unspecified arm, initial encounter (10/21/19) Visit Care Team Role Provider Type Curtis Adams MD Primary Care Provider Non-Staff Specialty: Family Practice Address: [address] [facility], [address], [place], [address] Email: Braeden Fischer MD Family Provider Physician Specialty: Oncology Address: [address] [place] [address], [id number] Email: Jason Norwood MD Attending Provider Physician Specialty: Orthopedic Surgery Address: [address] [place] [address], [address] Email: [email or web address] Visit Number Visit Number Discharge Summary PT-OP-B Current Condition Start: 07/12/19 11:08 Freq: Status: Active Protocol: Document 07/13/19 11:24 AR (Rec: 07/13/19 12:12 AR [email or web address]) Current Condition History of Current Condition Onset Date 04/21/2019 Current Complaints L shoulder pain, weakness, and dec ROM History of Current Condition Pt reports she re-injured her L shoulder while closing the door of her car. She has suicide doors and her arm got caught in the door and was pulled behind her. She torn her RTC in 2004 and has had shoulder pain and weakness since then. Pt has a hx of MS and has had 3 falls in the past year. She has come to PT previously for balance training and is continuing to do balance and strengthening exercises at home. Pt also has hx of breast cancer and a L mastectomy and she believes that scar tissue may also be contributing to her shoulder pain. She stretches scar tissue daily. Pt is unable to lift anything heavier than 5 pounds and she is unable to turn off a light switch or close a door with her L hand. She has pain into hand and 3rd and 4th digit. She stated that no one can figure out what's wrong with my hand but also reported a dx of trigger finger. Pt has pain in palm of hand when her fingers aren 't working. Pt has a hx of neck pain and had surgery for carpal tunnel syndrome 2 years ago. Prior Treatments and Tests X-ray in 2004 after RTC injury , no fracture. Imaging for recent injury done at [facility] Treatment Goals Patient/Caregiver Goals Be able to use arm normally for lifting, closing doors. Be able to perform yoga stretches without shoulder pain. Personal Factors Other Personal Factors That May Effect Medical hx (MS, fall hx, Therapy/Recovery breast cancer, etc) PT-OP-C Subjective Start: 07/12/19 11:08 Freq: Status: Active Protocol: Document 10/21/19 13:06 SP (Rec: 10/21/19 13:23 SP [id number]) OP-PT Subjective Patient Comments Patient Comments Pt reports L shld doing well and think today will be last appt. If needed will call and have new referral submitted. Pt stated feels able to complete all HEP with I and hand outs for recall. PT-OP-F Manual Assessment Start: 07/12/19 11:08 Freq: Status: Active Protocol: Document 07/13/19 11:24 AR (Rec: 07/13/19 12:12 AR [email or web address]) Manual Assessments Soft Tissue Assessment Soft Tissue Mobility Assessment Myofascial restrictions in ant & lateral deltoid, biceps, and pectorals. Muscle guarding in upper trapezius Joint Mobility Assessment Joint Mobility Assessment suspected AC joint hypomobility and dysnfunction, but was unable to assess mobility d/t pain and guarding in [place] Other Manual Assessments Other Manual Assessments UE Neural Tension tests ( Radial, Median and Ulnar) all negative PT-OP-J Posture/Palpation/Skin Start: 07/12/19 11:08 Freq: Status: Active Protocol: Document 07/13/19 11:24 AR (Rec: 07/13/19 12:12 AR [email or web address]) Posture Evaluation Position Sitting Evaluation View Lateral Head/C-Spine Posture Forward Head Shoulder Posture (L) Rounded,(R) Rounded PT-OP-K Range of Motion Start: 07/12/19 11:08 Freq: Status: Active Protocol: Document 10/21/19 13:06 SP (Rec: 10/21/19 13:37 SP [id number]) Shoulder Goniometric Range of Motion Shoulder Left Testing Position Standing Flexion 155 Extension 50 Abduction 135 External Rotation at 0 degrees Abduction 88 Internal Rotation Behind Back (text) T10 Right Shoulder ROM WFL Yes PT-OP-L Special Tests Start: 07/12/19 11:08 Freq: Status: Active Protocol: Document 07/13/19 11:24 AR (Rec: 07/13/19 12:12 AR [email or web address]) Special Tests Shoulder Special Tests AC resisted extension Test Results negative Comments challenging to maintain position, but no pain AC Joint Compression Test Results positive Lateral Alek Test Results postive Comments indicative of RTC tear Speed's Biceps Test Results positive Estrada Renan Impingement Test Results positive Neer Impingement Test Results negative PT-OP-M Strength Start: 07/12/19 11:08 Freq: Status: Active Protocol: Document 10/21/19 13:06 SP (Rec: 10/21/19 13:37 SP [id number]) Shoulder Strength Shoulder Manual Muscle Testing Left Flexion 4+ Good+ Extension 5 Normal Abduction (C5) 3+ Fair+ External Rotation 4+ Good+ Internal Rotation 3+ Fair+ Right Flexion 5 Normal Extension 5 Normal Abduction (C5) 5 Normal External Rotation 5 Normal Internal Rotation 5 Normal PT-OP-T Assessment and Plan Start: 07/12/19 11:08 Freq: Status: Active Protocol: Document 10/24/19 08:48 [facility] (Rec: 10/24/19 09:02 [facility] [id number]) Physical Therapy Assessment Goals ROM Impairment decreased and painful ROM Short Term Goal (STG) Pt will improve abduction ROM to at least 140 deg and IR to L5/S1 level w/o pain and with proper scapular mechanics. 09/13-able to do IR. STG Duration 10/14/19 Foundation Engineer Goal (LTG) Pt will demonstrate L shoulder ROM within normal limits to be able to perform daily activities. 09/13-improving ability at home LTG Duration 11/13/19 Lifting Impairment pt unable to lift more than 5 lbs Short Term Goal (STG) Pt will be able to lift 5 lbs to 45 deg abd with proper scapular mechanics. STG Duration 10/20/19 Longterm Goal (LTG) Pt will be able to lift 10 lbs without shoulder shrug and with proper scapular mechanics . 09/13-pt able to lift 10lbs but deos require ceuing for scap mechanics LTG Duration 11/12/19 Strength Impairment weakness Short Term Goal (STG) Pt will be compliant with HEP. STG Duration achieved Longterm Goal (LTG) Pt will inc all shoulder MMTs to at least 4/5 to be able to perform daily activities. 09/13- improving LTG Duration 11/13/19 Assessment Summary Assessment Pt is d/c at this time d/t plateau in progress. She has made good gains with ROM but cont to have pain but has only recently started to get improved glenohumeral mechanics. SHe is d/c to HEP at this time. Improve strenght but still deficits that pt is to work on on her own. Physical Therapy Plan Discharge Physical Therapy Discharge Reasons Plateau in Progress
== END 2019-10-21 15:30 | disposition home or self-care (01) ==
LOC: PHYS 13:00
PROVIDERS: PCP Family Medicine; Visit Provider Orthopaedic Surgery
DX: S46.819A Strain of other muscles, fascia and tendons at shoulder and upper arm level, unspecified arm, initial encounter (principal); R53.1 Weakness; M25.612 Stiffness of left shoulder, not elsewhere classified; R29.3 Abnormal posture
CPT/HCPCS: 95831; 95851; 97010; 97110; 97112; 97140; 97162

== ENCOUNTER → 2019-12-08 14:08 | Outpatient (CLI) | payer OTHER, SELFPAY ==
--- NOTE | 2019-12-08 14:09 | DI.MG.S_ITS ---
UNILATERAL RIGHT DIGITAL DIAGNOSTIC MAMMOGRAM 3D/2D POST MASTECTOMY: 12/08/2019 CLINICAL: Breast Cancer. Comparison is made to exams dated: 11/05/2018 mammogram, 11/17/2017 mammogram, and 11/13/2016 mammogram - [facility]. The tissue of right breast is heterogeneously dense. This may lower the sensitivity of mammography. No significant masses, calcifications, or other findings are seen in the breast. There has been no significant interval change. IMPRESSION: NEGATIVE There is no mammographic evidence of malignancy. A 1 year screening mammogram is recommended. This exam was interpreted at Station ID: [id number]. NOTE: For mammograms, a report in lay terms will be sent to the patient. Approximately 15% of breast malignancies will not be visualized mammographically. In the management of a palpable breast mass, a negative mammogram must not discourage biopsy of a clinically suspicious lesion. Electronically Signed By: Jason figueroa/solomon:12/08/2019 14:44:14 copy to: GALILEO ROWAN letter sent: Normal Exam ACR BI-RADS Category 1: Negative [id number]
== END ==
PROVIDERS: PCP Family Medicine
DX: Z08 Encounter for follow-up examination after completed treatment for malignant neoplasm (principal); Z85.3 Personal history of malignant neoplasm of breast; Z90.12 Acquired absence of left breast and nipple
CPT/HCPCS: 77065; G0279

== ENCOUNTER → 2020-06-14 07:56 | Outpatient (CLI) | payer OTHER, SELFPAY ==
--- NOTE | 2020-06-14 | DI.MRI.S_ITS ---
PROCEDURE: MR HEAD/BRAIN WO/W CON INDICATIONS: Multiple sclerosis TECHNIQUE: Noncontrast sagittal and axial FLAIR, axial and coronal T2 fast spin echo, axial VIBE, axial gradient echo, axial diffusion and ADC through the brain. After the administration of contrast, axial and coronal VIBE with fat saturation through the brain. COMPARISON: [facility], MR, BRAIN W&WO CONTRAST, 03/01/2015, 12:19. [facility], MR, MR HEAD/BRAIN WO/W CON, 08/31/2019, 11:44. [facility], MR, BRAIN W&WO CONTRAST, 12/05/2016, 15:25. FINDINGS: Image quality: Excellent. CSF spaces: Ventricles are normal in size and shape. Basal cisterns are patent. No extra-axial fluid collections. Brain: White matter lesions are again seen within the periventricular and deep white matter, with involvement of the juxtacortical white matter also seen, particularly involving the left frontal lobe laterally. A few of the periventricular lesions demonstrated perpendicular orientation to the lateral ventricles. There is involvement of the undersurface of the corpus callosum. A potential jerry lesion is seen. No definite cerebellar lesions are seen. These lesions do not enhance. The larger lesions demonstrate low signal on T1 weighted images. No significant progression can be seen compared to the prior examination. No intracranial bleeds or mass effects. Caldwell-white matter interface appears intact. No abnormal intracranial enhancement. Diffusion weighted images show no acute ischemic insults. Brainstem appears normal. Normal intravascular flow voids are present. Skull and face: Calvarial marrow signal is normal. Orbits appear normal. Note is made of bilateral lens replacements. Sinuses: Sinuses and mastoids are clear. Mild to moderate leftward nasal septal deviation is incidentally noted. IMPRESSION: Stable white matter lesions are seen, which are consistent with the given history of multiple sclerosis. No abnormal enhancement is seen. Dictated by: Omkar Rothman M.D. on 06/14/2020 at 9:03 Approved by: Omkar Rothman M.D. on 06/14/2020 at 9:07
== END ==
PROVIDERS: PCP Family Medicine; Referring Provider Specialist; Visit Provider Specialist
DX: G35 Multiple sclerosis (principal); R42 Dizziness and giddiness; J34.2 Deviated nasal septum
CPT/HCPCS: 70553

== ENCOUNTER 2020-08-31 10:57 | Emergency (ER) | payer OTHER, SELFPAY ==
[2020-08-31] VITALS (20 sets, daily range): BP systolic 135–190; BP diastolic 81–99; PULSE 52–62; RESP 10–34; TEMP 35.9; O2SAT 97–99; BMI 55.0
--- NOTE | 2020-08-31 11:22 | DI.RAD.S_ITS ---
PROCEDURE: XR CHEST 1V INDICATIONS: chest pain TECHNIQUE: One view of the chest was acquired. COMPARISON: [facility], , CHEST 1 VIEW, 05/18/2017, 8:50. FINDINGS: Surgical changes and devices: None. Lungs and pleura: Lungs are clear. No pleural effusions or pneumothorax. Mediastinum: Mediastinal contours appear normal. Heart size is normal. Bones and chest wall: No suspicious bony lesions. Overlying soft tissues appear unremarkable. IMPRESSION: No acute cardiopulmonary pathology. Dictated by: Benigno Kaplan M.D. on 08/31/2020 at 10:56 Approved by: Benigno Kaplan M.D. on 08/31/2020 at 10:57
--- NOTE | 2020-08-31 11:25 | ED_ITS ---
HPI - Chest Pain General Chief Complaint: Chest Pain Stated Complaint: chest pressure Time Seen by Provider: 08/31/20 11:00 History of Present Illness HPI narrative: 65-year-old woman with a history of breast cancer status post left mastectomy 2017, mild asthma, multiple sclerosis presents via medics complaining of feeling exhausted dramatically fatigued, global weakness, she has been profusely diaphoretic- sweating through clothing, with chest pressure (no pain) radiating through to both arms and fingers with subjective dyspnea. All of her symptoms started abruptly as she was outside working in her yard this morning. Did not resolve with rest. She was given aspirin EN route. Symptoms did not change after 2 sublingual nitroglycerin. She had no significant wheezing but mild history of asthma so nebulizer was attempted with no change to symptoms. She otherwise describes no significant fevers, cough, chills, nausea, vomiting, diarrhea, abdominal pain. She states that she was doing fine yesterday with no concerning symptoms. She has no known Covid exposures. Records review history of the known ascending aortic aneurysm. She has had no further follow-up for at least 2 and half years regarding this. With her left- sided mastectomy and lymph node dissection on the left side she is not supposed to have blood pressures on the left arm. CTA will be ordered Related Data Home Medications Medication Instructions Recorded Confirmed Myrbetriq 50 mg PO DAILY #0 11/06/16 07/20/20 Plegridy 125 mcg SQ Q2W #0 02/05/17 07/20/20 calcium carb-vit D3-minerals 600 1 tab PO BID tab 01/24/20 07/20/20 mg calcium-200 unit tablet lysine 1,000 mg tablet 1,000 mg PO DAILY 01/24/20 07/20/20 triamcinolone acetonide 0.1 % TOP TID PRN gram 04/18/20 07/20/20 topical ointment eczema cream TOPICAL 07/20/20 07/20/20 Previous Rx's Medication Instructions Recorded meloxicam 15 mg tablet 15 mg PO Q DAY #90 tab 07/23/18 montelukast 10 mg tablet 10 mg PO QDAY #90 tab 09/06/18 albuterol sulfate 90 mcg/actuation 1 puff INHALATION Q4-6H PRN #6.7 01/03/19 aerosol inhaler gram bupropion HCl 150 mg 24 hr tablet, 150 mg PO QDAY #90 tab 12/07/19 extended release bupropion HCl 300 mg 24 hr tablet, 300 mg PO QDAY #90 tab 12/07/19 extended release fluoxetine 60 mg tablet 60 mg PO DAILY #90 tab 07/20/20 hydroxyzine HCl 25 mg tablet 25 mg PO TID PRN #90 tab 07/20/20 lisdexamfetamine 40 mg capsule 40 mg PO QAM #90 cap 07/20/20 Allergies Allergy/AdvReac Type Severity Reaction Status Date / Time feathers [FEATHERS] Allergy Severe ASTHMA Verified 07/20/20 13:26 mold [MOLD] Allergy Severe ASTHMA Verified 07/20/20 13:26 grass pollen [GRASS POLLEN] AdvReac Intermediate DERMATITIS Verified 07/20/20 13:26 Review of Systems Review of Systems Narrative: Pertinent positive and negative findings as per HPI Remainder of review of systems is otherwise unremarkable for : Dysuria, hematuria, flank pain MS: numbness, joint swelling or warmth Skin: Rashes, nonhealing lesions Neuro: Syncope, dizziness, tingling Patient History Medical History ADHD (attention deficit hyperactivity disorder) (Chronic Unknown) Ascending aortic aneurysm (03/03/17) Ascending aortic aneurysm (Chronic ~02/2017) Asthma (Chronic Unknown) Attention deficit disorder of adult with hyperactivity (09/20/15) Bilateral carpal tunnel syndrome (09/20/15) Binge eating disorder (Chronic) Breast cancer (Chronic ~2015) Breast cancer, left (Inactive) Carpal tunnel syndrome (Resolved ~2016) Chronic pain of both shoulders (03/03/17) Chronic pain of right knee (03/03/17) Depression (Chronic Unknown) Emotional lability (06/26/16) Generalized anxiety disorder (Chronic) History of hysterectomy (09/20/15) Hot flashes (Chronic) Low back pain (Resolved Unknown) Major depression, recurrent, full remission (Inactive) Malignant neoplasm of left female breast (12/29/16) Menopause present (09/20/15) Migraine (Chronic) Migraines (Chronic Unknown) Multiple sclerosis (Chronic 09/20/15) Multiple sclerosis (Chronic Unknown) 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/16) Osteoarthritis (Chronic ~04/2017) Pain in both upper extremities (12/29/16) Pain of left hand (Chronic 12/03/17) Paresthesia (12/29/16) Psoriasis (Chronic Unknown) Right knee pain (Chronic) Trigger finger (Chronic) Trigger middle finger of left hand (Chronic 12/03/17) Uncomplicated asthma (09/20/15) Surgical History History of carpal tunnel release (Resolved 02/2017) Hx of hysterectomy with oophorectomy (Resolved Unknown) Hx of knee surgery (Resolved 1985) Hx of left mastectomy (Resolved 03/2017) Family History Father No problems noted. Mother No problems noted. Grandfather No problems noted. Grandmother No problems noted. Grandfather No problems noted. Grandmother No problems noted. Social History Smoking Status: Former smoker Smoking Status: Former smoker (smoked for 1-2 years in the 1980s) Exam Narrative Exam Narrative: General: Pale, profusely diaphoretic Able to give a complete and coherent history but complains that she is having some difficulties remembering. HEENT: Moist mucous membranes, normal sclera with reactive pupils, Neck: No JVD, supple Respiratory: Lungs are clear to auscultation, no wheezing no rales no rhonchi. Full and symmetrical air movement. Normal oxygen saturations with subjective complaints of dyspnea Cardiac: Regular rate and rhythm no murmurs no bruits Abdomen: Soft nontender good bowel tones, no flank pain Skin: Profusely diaphoretic Neurologic: Globally weak but Grossly neurologically intact with no obvious asymmetries or abnormalities. No dysarthria or word-finding difficulties Extremities: No trauma, well perfused Psych: Cooperative, slightly clouded sensorium but is oriented to person time and place Initial Vital Signs Initial Vital Signs: Vital Signs Pulse Rate 54 L 08/31/20 11:02 Pulse Oximetry 99 08/31/20 11:02 Course Orders Ordered: ED Orders 08/31/20 11:20 Blood Culture Stat COVID19 -ED/INPAT/OR/L&D Stat Complete Blood Count AUTO DIFF Stat Comprehensive Metabolic Panel Stat D Dimer Stat Lactate (Lactic Acid) Stat Lipase Stat NT-proBNP (BNP-Adult 18+) Stat Procalcitonin Stat Troponin I Stat 08/31/20 11:22 XR chest 1V Stat Urinalysis and Microscopic Stat 08/31/20 11:35 CT angio chest abdomen pelvis Stat 08/31/20 13:59 Troponin I Stat Vital Signs Vital signs: Vital Signs - 8 hr 08/31/20 11:02 08/31/20 11:04 08/31/20 11:31 Temperature Pulse Rate 54 L 54 L 52 L Respiratory Rate 19 18 Blood Pressure 167/98 H 169/87 H Pulse Oximetry 99 99 98 08/31/20 11:32 08/31/20 12:00 08/31/20 12:30 Temperature 96.6 F L Pulse Rate 54 L 58 L 56 L Respiratory Rate 12 16 18 Blood Pressure 169/87 H Pulse Oximetry 98 99 98 08/31/20 12:42 08/31/20 12:46 08/31/20 13:00 Temperature Pulse Rate 56 L 56 L Respiratory Rate 23 17 Blood Pressure 190/97 H 171/99 H 161/99 H Pulse Oximetry 97 97 08/31/20 13:15 08/31/20 13:30 08/31/20 13:46 Temperature Pulse Rate 58 L 58 L Respiratory Rate 34 H 25 H Blood Pressure 150/97 H 146/87 H 152/81 H Pulse Oximetry 98 99 08/31/20 14:00 08/31/20 14:15 08/31/20 14:30 Temperature Pulse Rate 58 L 57 L 56 L Respiratory Rate 31 H 19 17 Blood Pressure 145/84 H 141/81 H 157/91 H Pulse Oximetry 99 99 99 MDM - Chest Pain Medical Records Data Attestation: I reviewed the patient's medical records. Lab Data Attestation: I reviewed the patient's lab results. Result diagrams: 08/31/20 11:20 08/31/20 11:20 Labs: Lab Results 08/31/20 08/31/20 08/31/20 Range/Units 11:20 11:20 11:20 WBC 5.5 (4.5-11.0) X10^3/uL RBC 4.42 (4.0-5.2) X10^6/uL Hgb 13.5 (12.0-16.0) g/dL Hct 41.0 (36-46) % MCV 92.8 (80-100) fL MCH 30.5 (26-34) PG MCHC 32.9 (30-36) % RDW 13.8 (11.6-14.8) % Plt Count 167 (150-400) X10^3/uL Neut % (Auto) 76.5 H (50-75) % Lymph % (Auto) 14.6 L (25-40) % [place] % (Auto) 5.3 (3-14) % Eos % (Auto) 3.1 (2-4) % Baso % (Auto) 0.5 (0-2) % Neut # (Auto) 4200 (6292-1492) /uL Lymph # (Auto) 800 L (6419-8615) /uL [place] # (Auto) 300 (0-900) /uL Eos # (Auto) 200 (0-450) /uL Baso # (Auto) 0 (0-100) /uL D-Dimer < 200 (<230) ng/mL Sodium 139 (137-145) mmol/L Potassium 4.1 (3.4-5.1) mmol/L Chloride 110 H (98-107) mmol/L Carbon Dioxide 26 (22-32) mmol/L BUN 27 H (7-17) mg/dL Creatinine 0.61 (0.52-1.04) mg/dL Estimated GFR > 60.0 (>60) mL/min BUN/Creatinine Ratio 44.3 H (6-22) Glucose 111 H (80-110) mg/dL Lactate (0.7-2.1) mmol/L Calcium 9.2 (8.4-10.2) mg/dL Total Bilirubin 0.4 (0.2-1.3) mg/dL AST 66 H (14-36) IU/L ALT 72 H (<35) IU/L Alkaline Phosphatase 74 (38-126) U/L Troponin I < 0.012 (0.01-0.034) ng/mL NT-Pro-B Natriuret Pep 79 (<125) pg/mL Total Protein 6.7 (6.3-8.2) g/dL Albumin 3.8 (3.5-5.0) g/dL Globulin 2.9 (1.7-4.1) g/dL Albumin/Globulin Ratio 1.3 (1.0-2.8) Lipase 116 (23-300) U/L Procalcitonin (<0.5) ng/mL COVID-19 PCR (Negative) 08/31/20 08/31/20 08/31/20 Range/Units 11:20 11:20 11:20 WBC (4.5-11.0) X10^3/uL RBC (4.0-5.2) X10^6/uL Hgb (12.0-16.0) g/dL Hct (36-46) % MCV (80-100) fL MCH (26-34) PG MCHC (30-36) % RDW (11.6-14.8) % Plt Count (150-400) X10^3/uL Neut % (Auto) (50-75) % Lymph % (Auto) (25-40) % [place] % (Auto) (3-14) % Eos % (Auto) (2-4) % Baso % (Auto) (0-2) % Neut # (Auto) (1392-9756) /uL Lymph # (Auto) (5802-9816) /uL [place] # (Auto) (0-900) /uL Eos # (Auto) (0-450) /uL Baso # (Auto) (0-100) /uL D-Dimer (<230) ng/mL Sodium (137-145) mmol/L Potassium (3.4-5.1) mmol/L Chloride (98-107) mmol/L Carbon Dioxide (22-32) mmol/L BUN (7-17) mg/dL Creatinine (0.52-1.04) mg/dL Estimated GFR (>60) mL/min BUN/Creatinine Ratio (6-22) Glucose (80-110) mg/dL Lactate 1.2 (0.7-2.1) mmol/L Calcium (8.4-10.2) mg/dL Total Bilirubin (0.2-1.3) mg/dL AST (14-36) IU/L ALT (<35) IU/L Alkaline Phosphatase (38-126) U/L Troponin I (0.01-0.034) ng/mL NT-Pro-B Natriuret Pep (<125) pg/mL Total Protein (6.3-8.2) g/dL Albumin (3.5-5.0) g/dL Globulin (1.7-4.1) g/dL Albumin/Globulin Ratio (1.0-2.8) Lipase (23-300) U/L Procalcitonin < 0.05 (<0.5) ng/mL COVID-19 PCR Negative (Negative) 08/31/20 Range/Units 13:59 WBC (4.5-11.0) X10^3/uL RBC (4.0-5.2) X10^6/uL Hgb (12.0-16.0) g/dL Hct (36-46) % MCV (80-100) fL MCH (26-34) PG MCHC (30-36) % RDW (11.6-14.8) % Plt Count (150-400) X10^3/uL Neut % (Auto) (50-75) % Lymph % (Auto) (25-40) % [place] % (Auto) (3-14) % Eos % (Auto) (2-4) % Baso % (Auto) (0-2) % Neut # (Auto) (8382-9551) /uL Lymph # (Auto) (9409-3081) /uL [place] # (Auto) (0-900) /uL Eos # (Auto) (0-450) /uL Baso # (Auto) (0-100) /uL D-Dimer (<230) ng/mL Sodium (137-145) mmol/L Potassium (3.4-5.1) mmol/L Chloride (98-107) mmol/L Carbon Dioxide (22-32) mmol/L BUN (7-17) mg/dL Creatinine (0.52-1.04) mg/dL Estimated GFR (>60) mL/min BUN/Creatinine Ratio (6-22) Glucose (80-110) mg/dL Lactate (0.7-2.1) mmol/L Calcium (8.4-10.2) mg/dL Total Bilirubin (0.2-1.3) mg/dL AST (14-36) IU/L ALT (<35) IU/L Alkaline Phosphatase (38-126) U/L Troponin I < 0.012 (0.01-0.034) ng/mL NT-Pro-B Natriuret Pep (<125) pg/mL Total Protein (6.3-8.2) g/dL Albumin (3.5-5.0) g/dL Globulin (1.7-4.1) g/dL Albumin/Globulin Ratio (1.0-2.8) Lipase (23-300) U/L Procalcitonin (<0.5) ng/mL COVID-19 PCR (Negative) Imaging Data CTa of chest abdomen pelvis: Radiologist's Impression: FINDINGS: Image quality: Excellent. AORTA: Again noted is ascending thoracic aortic aneurysm now measures up to 4.4 centimeters in largest AP diameter compared to 4.2 centimeters on 2017 study. Descending thoracic aorta is normal in size. Abdominal aorta is normal in size. There is no aortic dissection. CHEST: Lungs and pleura: No acute airspace opacities. Dependent atelectasis in posterior aspect of bilateral lung harvey are seen. Mild centrilobular emphysema is also noted. No pleural effusions or pneumothorax. Central and peripheral airways are patent and normal in caliber. Mediastinum: Heart size is enlarged. No pericardial effusion. No mediastinal or hilar adenopathy by size criteria. Central pulmonary arteries are normal in size. No gross filling defects are seen within main pulmonary artery and bilateral pulmonary artery branches. Esophagus is normal in caliber. There is a small hiatal hernias. Bones and chest wall: There is prior left mastectomy. Surgical clips are seen in left axilla. No axillary adenopathy by size criteria. Thyroid gland is within normal limits. No suspicious bony lesions. No vertebral body compression fractures. ABDOMEN: Vasculature: Celiac trunk and mesenteric arteries are patent. Renal arteries are also patent. Solid organs: Liver is normal in size . Severe hepatic steatosis is seen. Gallbladder is within normal limits. Biliary system is non dilated. Pancreas enhances normally. Spleen is normal in size and enhancement. No adrenal nodules. Both kidneys are normal in size and enhancement, without hydronephrosis. Peritoneum and bowel: No free fluid or air. Bowel loops are normal in caliber and wall thickness. Fecal stasis in the colon is seen extending to the rectum suggestive of mild fecal impaction. Nodes and vessels: No retroperitoneal or mesenteric adenopathy by size crite mahad. Inferior vena cava is normal in morphology. Miscellaneous: No ventral hernias. PELVIS: Genitourinary: Bladder wall thickness is normal. Miscellaneous: No inguinal hernias or adenopathy. No ventral hernias. Bones: No suspicious bony lesions. No vertebral body compression fractures. IMPRESSION: 1. Mild ascending thoracic aortic aneurysm now measures up to 4.4 centimeters in largest AP diameter. No descending thoracic aortic aneurysm. No abdominal aortic aneurysm. No aortic dissection. 2. No gross pulmonary emboli. Major branches of thoracic and abdominal aorta are patent. 3. Mild bibasilar dependent atelectasis. Mild centrilobular emphysema. No focal infiltrate, pleural effusion or pneumothorax. 4. No acute inflammatory process within abdomen or pelvis. No free fluid or free air. 5. Mild constipation and fecal impaction. 6. Severe hepatic steatosis. Small hiatal hernia. Dictated by: Benigno Kaplan M.D. on 08/31/2020 at 11:00 ECG Data Attestation: I personally reviewed and interpreted this ECG as follows: Interpretation: Sinus rhythm at a rate of 52 Normal intervals and axis No acute STT wave changes MDM Narrative Medical decision making narrative: 65-year-old woman who presents with acute onset dyspnea, fatigue and profuse diaphoresis. Workup it is entirely unremark able. There is no EKG changes and troponin is unremarkable so acute coronary syndrome/STEMI is less likely. She does have a history of ascending aortic aneurysm so aortic dissection was considered and CTA shows no change to the 4.4 cm ascending thoracic aortic aneurysm. No evidence of pulmonary embolism, pneumothorax or obvious pneumonia. Similarly no heart failure. She is Covid negative No source of infection or evidence of sepsis is identified. No evidence of stroke on clinical exam nor meningitis. All life-threatening etiology to explain the abrupt symptoms have been ruled out. Will repeat a troponin at 2 hours. Will re-evaluate after that 350 patient is feeling much better all symptoms of entirely resolved. CT a is reassuring. Repeat troponin is equally reassuring. At this point I do not have an explanation for the episode this morning. There is no evidence of acute c oronary syndrome or heart attack, dissection, infection including Covid, severe intra-abdominal pathology or other life-threatening issues identified with extensive workup today. Reviewed all findings cares and concerns with the patient. Questions are answered. Explained that I do not have an explanation for her presentation and asked her to have a very low threshold for returning should she have new, returning, evolving symptoms of any kind. She is safe for home discharge at this time Discharge Plan Departure Patient Disposition: Home Clinical Impression: Atypical chest pain, Diaphoresis Dyspnea Qualifiers: Dyspnea type: shortness of breath Qualified Code(s): R06.02 - Shortness of breath Instructions: DI for Atypical Chest Pain, DI for Shortness of Breath Activity Restrictions/Additional Instructions: Thank you for coming in today After looking extensively, I do not have a full explanation for your episode this morning. Fortunately, I can tell you all of things you do not have. I do not see any evidence for a heart attack, a stroke, blood clots in her lungs, lung abdominal or brain infections, collapsed lungs, fluid collecting around her heart, acute kidney problems acute liver problems or acute stomach problems. Because I do not have a full explanation, if you have recurrent symptoms or evolving symptoms please feel free to return to the emergency department I wish you the best Prescriptions: No Action triamcinolone acetonide 0.1 % ointment TOP TID PRNRF: 0 lysine 1,000 mg tablet 1,000 mg PO DAILY RF: 0 calcium carbonate-vit D3-min 600 mg calcium- 200 unit tablet 1 tab PO BID RF: 0 eczema cream topical RF: 0 hydroxyzine HCl 25 mg tablet 25 mg PO TID PRN (Reason: itching or anxiety) Qty: 90 RF: 1 fluoxetine 60 mg tablet 60 mg PO DAILY Qty: 90 RF: 3 Vyvanse 40 mg capsule 40 mg PO QAM Qty: 90 RF: 0 Myrbetriq 50 MG tablet extended release 24 hr 50 mg PO DAILY Qty: 0 RF: 0 Plegridy 125 MCG/0.5 ML syringe 125 mcg SQ Q2W Qty: 0 RF: 0 meloxicam 15 mg tablet 15 mg PO Q DAY Qty: 90 RF: 1 montelukast [Singulair] 10 mg tablet 10 mg PO QDAY Qty: 90 RF: 1 albuterol sulfate [Ventolin HFA] 90 mcg/actuation HFA aerosol inhaler 1 puff INHALATION Q4-6H PRN (Reason: shortness of breath or wheezing) Qty: 6.7 RF: 11 bupropion HCl [Wellbutrin XL] 300 mg tablet extended release 24 hr 300 mg PO QDAY Qty: 90 RF: 2 bupropion HCl [Wellbutrin XL] 150 mg tablet extended release 24 hr 150 mg PO QDAY Qty: 90 RF: 2 Referrals: Curtis Adams MD [Primary Care Provider] -
--- NOTE | 2020-08-31 11:35 | DI.CT.S_ITS ---
PROCEDURE: CT ANGIO CHEST ABDOMEN PELVIS INDICATIONS: chest pain, dyspnea, known ascending aortic anyurism TECHNIQUE: Precontrast 5 mm thick sections acquired from the lung apices to the iliac crests. After the administration of intravenous contrast, 2.5 mm thick sections again acquired from the lung apices to the iliac crests. Maximum intensity projection (MIP) oblique sagittal and coronal reformats were then acquired. For radiation dose reduction, the following was used: automated exposure control. COMPARISON: [facility], CT, NECK/CHEST/ABD/PEL W CONTRAST, 05/06/2017, 10:34. FINDINGS: Image quality: Excellent. AORTA: Again noted is ascending thoracic aortic aneurysm now measures up to 4.4 centimeters in largest AP diameter compared to 4.2 centimeters on 2017 study. Descending thoracic aorta is normal in size. Abdominal aorta is normal in size. There is no aortic dissection. CHEST: Lungs and pleura: No acute airspace opacities. Dependent atelectasis in posterior aspect of bilateral lung harvey are seen. Mild centrilobular emphysema is also noted. No pleural effusions or pneumothorax. Central and peripheral airways are patent and normal in caliber. Mediastinum: Heart size is enlarged. No pericardial effusion. No mediastinal or hilar adenopathy by size criteria. Central pulmonary arteries are normal in size. No gross filling defects are seen within main pulmonary artery and bilateral pulmonary artery branches. Esophagus is normal in caliber. There is a small hiatal hernias. Bones and chest wall: There is prior left mastectomy. Surgical clips are seen in left axilla. No axillary adenopathy by size criteria. Thyroid gland is within normal limits. No suspicious bony lesions. No vertebral body compression fractures. ABDOMEN: Vasculature: Celiac trunk and mesenteric arteries are patent. Renal arteries are also patent. Solid organs: Liver is normal in size . Severe hepatic steatosis is seen. Gallbladder is within normal limits. Biliary system is non dilated. Pancreas enhances normally. Spleen is normal in size and enhancement. No adrenal nodules. Both kidneys are normal in size and enhancement, without hydronephrosis. Peritoneum and bowel: No free fluid or air. Bowel loops are normal in caliber and wall thickness. Fecal stasis in the colon is seen extending to the rectum suggestive of mild fecal impaction. Nodes and vessels: No retroperitoneal or mesenteric adenopathy by size criteria. Inferior vena cava is normal in morphology. Miscellaneous: No ventral hernias. PELVIS: Genitourinary: Bladder wall thickness is normal. Miscellaneous: No inguinal hernias or adenopathy. No ventral hernias. Bones: No suspicious bony lesions. No vertebral body compression fractures. IMPRESSION: 1. Mild ascending thoracic aortic aneurysm now measures up to 4.4 centimeters in largest AP diameter. No descending thoracic aortic aneurysm. No abdominal aortic aneurysm. No aortic dissection. 2. No gross pulmonary emboli. Major branches of thoracic and abdominal aorta are patent. 3. Mild bibasilar dependent atelectasis. Mild centrilobular emphysema. No focal infiltrate, pleural effusion or pneumothorax. 4. No acute inflammatory process within abdomen or pelvis. No free fluid or free air. 5. Mild constipation and fecal impaction. 6. Severe hepatic steatosis. Small hiatal hernia. Dictated by: Benigno Kaplan M.D. on 08/31/2020 at 11:00 Approved by: Benigno Kaplan M.D. on 08/31/2020 at 11:24
[2020-08-31 11:42] LABS: Add Manual Diff / Slide Review NO; Basophils Absolute Auto 0 /uL (0-100); Basophils Percent Auto 0.5 % (0-2); Eosinophils Absolute Auto 200 /uL (0-450); Eosinophils Percent Auto 3.1 % (2-4); Hemoglobin 13.5 g/dL (12.0-16.0); Lymphocytes Absolute Auto 800 /uL (1100-4500); Lymphocytes Percent Auto 14.6 % (25-40); Mean Corpuscular HGB Conc 32.9 % (30-36); Mean Corpuscular Hemoglobin 30.5 PG (26-34); Mean Corpuscular Volume 92.8 fL (80-100); Monocytes Absolute Auto 300 /uL (0-900); Monocytes Percent Auto 5.3 % (3-14); Neutrophils Absolute Auto 4200 /uL (1500-7000); Neutrophils Percent Auto 76.5 % (50-75); Platelet Count 167 X10^3/uL (150-400); Red Blood Cell Count 4.42 X10^6/uL (4.0-5.2); Red Cell Distribution Width 13.8 % (11.6-14.8); White Blood Cell Count 5.5 X10^3/uL (4.5-11.0)
[2020-08-31 11:50] LABS: D Dimer < 200 ng/mL (<230)
[2020-08-31 11:51] LABS: Lactate (Lactic Acid) 1.2 mmol/L (0.7-2.1)
[2020-08-31 11:53] LABS: Alanine Aminotransferase 72 IU/L (<35); Albumin 3.8 g/dL (3.5-5.0); Albumin Globulin Ratio 1.3 (1.0-2.8); Alkaline Phosphatase 74 U/L (38-126); Aspartate Aminotransferase 66 IU/L (14-36); BUN Creatinine Ratio 44.3 (6-22); Bilirubin Total 0.4 mg/dL (0.2-1.3); Blood Urea Nitrogen 27 mg/dL (7-17); Calcium 9.2 mg/dL (8.4-10.2); Carbon Dioxide 26 mmol/L (22-32); Chloride 110 mmol/L (98-107); Estimated Glomerular Filt Rate > 60.0 mL/min (>60); Globulin 2.9 g/dL (1.7-4.1); Glucose 111 mg/dL (80-110); HEMOLYSIS 20 (0-50); Lipase 116 U/L (23-300); Potassium 4.1 mmol/L (3.4-5.1); Sodium 139 mmol/L (137-145); Total Protein 6.7 g/dL (6.3-8.2)
[2020-08-31 12:02] LABS: COVID19 -Nasal RAPID Negative (Negative)
[2020-08-31 12:05] LABS: NT-proBNP (BNP-Adult 18+) 79 pg/mL (<125); Troponin I < 0.012 ng/mL (0.01-0.034)
[2020-08-31 12:08] LABS: Procalcitonin < 0.05 ng/mL (<0.5)
[2020-08-31 14:36] LABS: Troponin I < 0.012 ng/mL (0.01-0.034)
[2020-09-01 08:45] LABS: Acinetobacter baumannii Not Detected (Not Detect); Candida albicans Not Detected (Not Detect); Candida glabrata Not Detected (Not Detect); Candida krusei Not Detected (Not Detect); Candida parapsilosis Not Detected (Not Detect); Candida tropicalis Not Detected (Not Detect); E. coli Not Detected (Not Detect); Enterobacter cloacae complex Not Detected (Not Detect); Enterobacteriaceae species Not Detected (Not Detect); Enterococcus species Not Detected (Not Detect); Haemophilus influenzae Not Detected (Not Detect); Listeria monocytogenes Not Detected (Not Detect); Methicillin-resistant gene Not Detected (Not Detect); Neisseria meningitidis Not Detected (Not Detect); Proteus species Not Detected (Not Detect); Pseudomonas aeruginosa Not Detected (Not Detect); Serratia marcescens Not Detected (Not Detect); Staphylococcus species Detected (Not Detect); Streptococcus agalactiae (Gr B Not Detected (Not Detect); Streptococcus pneumonia Not Detected (Not Detect); Streptococcus pyogenes (Gr A) Not Detected (Not Detect); Streptococcus species Not Detected (Not Detect)
== END 2020-08-31 16:05 | disposition home or self-care (01) ==
PROVIDERS: Emergency Provider Emergency Medicine; PCP Family Medicine
DX: R07.89 Other chest pain (principal); R61 Generalized hyperhidrosis; R06.02 Shortness of breath; Z03.818 Encounter for observation for suspected exposure to other biological agents ruled out
CPT/HCPCS: 36415; 71045; 71275; 74174; 80053; 83605; 83690; 83880; 84145; 84484; 85025; 85379; 87040; 87150; 87205; 87635; 93005; 99284; Q9967

== ENCOUNTER → 2021-01-26 11:05 | Outpatient (CLI) | payer OTHER, SELFPAY ==
--- NOTE | 2021-01-26 11:07 | DI.MG.S_ITS ---
UNILATERAL RIGHT DIGITAL SCREENING MAMMOGRAM 3D/2D WITH CAD: 01/26/2021 CLINICAL: Routine screening. Personal history of left breast cancer. Family history of breast cancer. Comparison is made to exams dated: 12/08/2019 mammogram, 11/05/2018 mammogram, and 11/17/2017 mammogram - [facility]. The tissue of right breast is heterogeneously dense. This may lower the sensitivity of mammography. Current study was also evaluated with a Computer Aided Detection (CAD) system. No significant masses, calcifications, or other findings are seen in the breast. There has been no significant interval change. IMPRESSION: NEGATIVE There is no mammographic evidence of malignancy. A 1 year screening mammogram is recommended. This exam was interpreted at Station ID: [id number]. NOTE: For mammograms, a report in lay terms will be sent to the patient. Approximately 15% of breast malignancies will not be visualized mammographically. In the management of a palpable breast mass, a negative mammogram must not discourage biopsy of a clinically suspicious lesion. Electronically Signed By: Dario gooed/solomon:01/28/2021 07:44:15 copy to: GALILEO ROWAN letter sent: Normal Exam ACR BI-RADS Category 1: Negative [id number]
== END ==
PROVIDERS: PCP Family Medicine; Referring Provider Family Medicine; Visit Provider Family Medicine
DX: Z12.31 Encounter for screening mammogram for malignant neoplasm of breast (principal); Z85.3 Personal history of malignant neoplasm of breast; Z80.3 Family history of malignant neoplasm of breast
CPT/HCPCS: 77063; 77067

== ENCOUNTER 2021-04-24 13:29 | Emergency (ER) | payer OTHER, SELFPAY ==
[2021-04-24 13:32] VITALS: BP 128/71; PULSE 67; RESP 20; TEMP 36.6; O2SAT 98
--- NOTE | 2021-04-24 13:34 | DI.RAD.S_ITS ---
PROCEDURE: XR KNEE LT 3V INDICATIONS: fall, unable to bear wt lt leg TECHNIQUE: 3 views of the knee were acquired. COMPARISON: [facility], , KNEE 3V RIGHT, 03/03/2017, 17:33. FINDINGS: Bones: No fractures or dislocations. Mild to moderate medial femoral tibial compartment and patellofemoral compartment osteoarthritis is seen. No suspicious bony lesions. Soft tissues: No joint effusion. No suspicious soft tissue calcifications. IMPRESSION: Mild to moderate medial femoral tibial compartment and patellofemoral compartment osteoarthritis. No fracture or dislocation. No significant joint effusion. Dictated by: Benigno Kaplan M.D. on 04/24/2021 at 14:07 Approved by: Benigno Kaplan M.D. on 04/24/2021 at 14:08
--- NOTE | 2021-04-24 13:34 | DI.RAD.S_ITS ---
PROCEDURE: XR HIP W PEL IF DONE LT 2V INDICATIONS: fall, unable to bear wt lt leg TECHNIQUE: AP pelvis with lateral view(s) of the left hip(s). COMPARISON: None. FINDINGS: Bones: No fractures or dislocations. Symmetric appearing [id number] bilateral hip joint osteoarthritic changes are seen. No evidence of avascular necrosis of femoral head. Pelvic ring appears intact. No suspicious bony lesions. Soft tissues: The visualized bowel gas pattern is normal. No suspicious soft tissue calcifications. IMPRESSION: No acute left hip fracture or dislocation. Bilateral hip joint osteoarthritis. No evidence of avascular necrosis. Dictated by: Benigno Kaplan M.D. on 04/24/2021 at 14:08 Approved by: Benigno Kaplan M.D. on 04/24/2021 at 14:09
[2021-04-24] MEDS: LIDOCAINE PATCH 1 EACH ADH..PATCH TOP (15:29)
--- NOTE | 2021-04-24 15:44 | ED_ITS ---
HPI - Extremity Injury (Lower) <Stefany Wells, TABLEAU LEAD-BC - Last Filed: 04/24/21 18:32> General Chief Complaint: Extremity Injury, Lower Stated Complaint: fall Thursday night Time Seen by Provider: 04/24/21 14:58 Source: patient Mode of arrival: Wheelchair Limitations: no limitations History of Present Illness HPI Narrative: The patient is a 65-year-old female former smoker with history of multiple sclerosis who presents with a chief complaint of left-sided pain since the fall Thursday. She states she often falls at home due to her on mass. On Thursday she looked up towards a [employer] bird feeder and fell down onto her buttocks. She states she had left-sided knee pain and left-sided hip pain. She presents to the emergency department today because the did not get any better. She states that she was using her leftover pain medications from another fall. She denies hitting her head, denies any neck or back pain. She states that she took Tylenol as she is on daily meloxicam and thus cannot do NSAIDs. She denies any previous injuries to her left knee or hip. Denies any twisting of her left knee. Denies any popping or instability sensation, states she just has ?lots pain.She does not use a walker or cane at home, though acknowledges that she should and states she has one. She is brought in by her friend who would like her to have resources regarding more help at home. Related Data Home Medications Medication Instructions Recorded Confirmed Myrbetriq 50 mg PO DAILY #0 11/06/16 01/22/21 Plegridy 125 mcg SQ Q2W #0 02/05/17 01/22/21 calcium carb-vit D3-minerals 600 1 tab PO BID tab 01/24/20 01/22/21 mg calcium-200 unit tablet lysine 1,000 mg tablet 1,000 mg PO DAILY 01/24/20 01/22/21 triamcinolone acetonide 0.1 % TOP TID PRN gram 04/18/20 01/22/21 topical ointment eczema cream TOPICAL 07/20/20 01/22/21 Previous Rx's Medication Instructions Recorded meloxicam 15 mg tablet 15 mg PO Q DAY #90 tab 07/23/18 montelukast 10 mg tablet 10 mg PO QDAY #90 tab 10/08/18 albuterol sulfate 90 mcg/actuation 1 puff INHALATION Q4-6H PRN #6.7 01/03/19 aerosol inhaler gram bupropion HCl 150 mg 24 hr tablet, 150 mg PO QDAY #90 tab 09/19/20 extended release bupropion HCl 300 mg 24 hr tablet, 300 mg PO QDAY #90 tab 09/19/20 extended release hydroxyzine HCl 50 mg tablet 50 mg PO TID PRN #180 tab 10/19/20 lisdexamfetamine 40 mg capsule 40 mg PO QAM #90 cap 01/22/21 fluoxetine 40 mg capsule 80 mg PO QAM #180 cap 04/22/21 lidocaine 1 patch TOPICAL DAILY PRN #15 ea 04/24/21 oxycodone-acetaminophen 1 tab PO Q4-6H PRN #7 tab 04/24/21 Allergies Allergy/AdvReac Type Severity Reaction Status Date / Time feathers [FEATHERS] Allergy Severe ASTHMA Verified 01/22/21 13:40 mold [MOLD] Allergy Severe ASTHMA Verified 01/22/21 13:40 grass pollen [GRASS POLLEN] AdvReac Intermediate DERMATITIS Verified 01/22/21 13:40 Review of Systems <CHINEDU Parson - Last Filed: 04/24/21 18:32> Review of Systems Narrative: GENERAL: Denies chills, fatigue, malaise, fever, sweats. HEENT: Denies sinus pain, ear pain, sore throat, difficulty swallowing, dizziness. RESPIRATORY: Denies dyspnea, cough, wheezing, hemoptysis, sputum. CARDIOVASCULAR: Denies chest pain, palpitations, orthopnea, edema, GASTROINTESTINAL: Denies nausea, vomiting, abdominal pain, diarrhea, constipation, melena. : Denies dysuria, frequency, incontinence, hematuria, urinary retention. MUSCULOSKELETAL: See HPI SKIN: Denies rash, skin lesions, or other NEUROLOGIC: Denies weakness, headache, numbness, change in speech, confusion, seizures, incoordination. PSYCHIATRIC: No concerning psychosocial issues. 12 point review of systems is negative except for those stated above Patient History <CHINEDU Parson - Last Filed: 04/24/21 18:32> Medical History ADHD (attention deficit hyperactivity disorder) (Unknown) Ascending aortic aneurysm (03/03/17) Ascending aortic aneurysm (~02/2017) Asthma (Unknown) Attention deficit disorder of adult with hyperactivity (09/20/15) Bilateral carpal tunnel syndrome (09/20/15) Binge eating disorder Breast cancer (~2015) Breast cancer, left Carpal tunnel syndrome (~2016) Chronic pain of both shoulders (03/03/17) Chronic pain of right knee (03/03/17) Depression (Unknown) Emotional lability (06/26/16) Generalized anxiety disorder History of hysterectomy (09/20/15) Hot flashes Low back pain (Unknown) Major depression, recurrent, full remission Malignant neoplasm of left female breast (12/29/16) Menopause present (09/20/15) Migraine Migraines (Unknown) Multiple sclerosis (09/20/15) Multiple sclerosis (Unknown) 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/16) Osteoarthritis (~04/2017) Pain in both upper extremities (12/29/16) Pain of left hand (12/03/17) Paresthesia (12/29/16) Psoriasis (Unknown) Right knee pain Trigger finger Trigger middle finger of left hand (12/03/17) Uncomplicated asthma (09/20/15) Surgical History History of carpal tunnel release (02/2017) Hx of hysterectomy with oophorectomy (Unknown) Hx of knee surgery (1985) Hx of left mastectomy (03/2017) Family History Father No problems noted. Mother No problems noted. Grandfather No problems noted. Grandmother No problems noted. Grandfather No problems noted. Grandmother No problems noted. Social History Smoking Status: Former smoker Smoking Status: Former smoker alcohol intake frequency: 0-2 drinks per day Alcohol type: beer and hard liquor Substance Use Type: marijuana Exam <CHINEDU Parson - Last Filed: 04/24/21 18:32> Narrative Exam Narrative: GENERAL: This is a well-nourished, well-developed patient, in mild distress. HEAD: Atraumatic. Normocephalic. No temporal or scalp tenderness. EYES: Pupils equal round and reactive. Extraocular motions intact. No scleral icterus. No injection or drainage. ENT: Nose without bleeding, purulent drainage or septal hematoma. Wearing a mask Airway patent. NECK: Trachea midline. No JVD or lymphadenopathy. Supple, nontender, no meningeal signs. CARDIOVASCULAR: Regular rate and rhythm RESPIRATORY: Clear to auscultation. Breath sounds equal bilaterally. No wheezes, rales, or rhonchi. No cough. No increased respiratory effort. No accessory muscle use. GASTROINTESTINAL: Abdomen soft, non-tender, nondistended. No hepato- splenomegaly, or palpable masses. No guarding. EXTREMITIES: Generalized pain to palpation noted left knee, able lift leg off stretcher, able then to 90?, positive pedal pulses no palpable instability. Pain to posterior knee palpation. BACK: Nontender without deformity or crepitance. No flank tenderness. No pain to CT or L-spine palpation. NEURO: AOx3. SKIN: Small abrasion noted on left knee. Initial Vital Signs Initial Vital Signs: Vital Signs Temperature 97.8 F 04/24/21 13:32 Pulse Rate 67 04/24/21 13:32 Respiratory Rate 20 04/24/21 13:32 Blood Pressure 128/71 04/24/21 13:32 Pulse Oximetry 98 04/24/21 13:32 <Demetrius Mccabe DO - Last Filed: 04/24/21 18:39> Initial Vital Signs Initial Vital Signs: Vital Signs Temperature 97.8 F 04/24/21 13:32 Pulse Rate 67 04/24/21 13:32 Respiratory Rate 20 04/24/21 13:32 Blood Pressure 128/71 04/24/21 13:32 Pulse Oximetry 98 04/24/21 13:32 Procedures <CHINEDU Parson - Last Filed: 04/24/21 18:32> Orthopedic Splinting/Casting Injury #1: Side: left Lower Extremity Injury Location: knee Lower Extremity Immobilizer: knee immobilizer and Felipe wrap Other Orthopedic Equipment: walker Post splinting neuro exam: intact Post splinting vascular exam: intact Placed by: Nursing Scores <CHINEDU Parson - Last Filed: 04/24/21 18:32> GCS [place] coma scale eye opening: Spontaneous [place] coma scale verbal response: Orientated Sonya coma scale motor response: Obey commands Sonya coma scale total score: 15 Course <RAMA Parson-BC - Last Filed: 04/24/21 18:32> Orders Ordered: ED Orders 04/24/21 13:34 XR hip w pel if done LT 2V Stat XR knee LT 3V Stat 04/24/21 13:46 Consult to [facility] Cotton Jammer Stat 04/24/21 16:34 CT LE LT wo con Stat Discontinued Medications Lidocaine (Lidocaine Patch 1 Each Adh..Patch) 1 each TOP NOW ONE Stop: 04/24/21 15:14 Last Admin: 04/24/21 15:29 Dose: 1 each Documented by: JENNIFER Lidocaine (Remove Lidocaine Patch) 1 each TOP 0300 LESA Oxycodone/Acetaminophen (Oxycodone/Acetaminophen 5/325 Tablet) 1 tab PO NOW ONE Stop: 04/24/21 16:35 Last Admin: 04/24/21 16:54 Dose: 1 tab Documented by: JENNIFER Vital Signs Vital signs: Vital Signs - 8 hr 04/24/21 13:32 04/24/21 17:15 Temperature 97.8 F Pulse Rate 67 62 Respiratory Rate 20 18 Blood Pressure 128/71 149/80 H Pulse Oximetry 98 98 <Demetrius Mccabe DO - Last Filed: 04/24/21 18:39> Orders Ordered: ED Orders 04/24/21 13:34 XR hip w pel if done LT 2V Stat XR knee LT 3V Stat 04/24/21 13:46 Consult to [facility] Cotton Jammer Stat 04/24/21 16:34 CT LE LT wo con Stat Discontinued Medications Lidocaine (Lidocaine Patch 1 Each Adh..Patch) 1 each TOP NOW ONE Stop: 04/24/21 15:14 Last Admin: 04/24/21 15:29 Dose: 1 each Documented by: JENNIFER Lidocaine (Remove Lidocaine Patch) 1 each TOP 0300 LESA Oxycodone/Acetaminophen (Oxycodone/Acetaminophen 5/325 Tablet) 1 tab PO NOW ONE Stop: 04/24/21 16:35 Last Admin: 04/24/21 16:54 Dose: 1 tab Documented by: JENNIFER Vital Signs Vital signs: Vital Signs - 8 hr 04/24/21 13:32 04/24/21 17:15 Temperature 97.8 F Pulse Rate 67 62 Respiratory Rate 20 18 Blood Pressure 128/71 149/80 H Pulse Oximetry 98 98 MDM - Extremity Injury (Lower) <RAMA Parson-BC - Last Filed: 04/24/21 18:32> Imaging Data Extremity x-ray #1: Radiologist's Impression: [address] [place] [address] [id number] ReportSigned Patient: Beverly Saunders KMR#: [id number]: [id number]:[id number]/Sex: 65 / FDate of Service: 04/24/21Loc: EDAccession Number: [id number] Procedure: XR knee LT 3V Ordering Provider: Demetrius Mccabe D.O. PROCEDURE: XR KNEE LT 3V INDICATIONS: fall, unable to bear wt lt leg TECHNIQUE: 3 views of the knee were acquired. COMPARISON: [facility], , KNEE 3V RIGHT, 03/03/2017, 17:33. FINDINGS: Bones: No fractures or dislocations. Mild to moderate medial femoral tibial compartment and patellofemoral compartment osteoarthritis is seen. No suspicious bony lesions. Soft tissues: No joint effusion. No suspicious soft tissue calcifications. IMPRESSION: Mild to moderate medial femoral tibial compartment and patellofemoral compartment osteoarthritis. No fracture or dislocation. No significant joint effusion. Dictated by: Benigno Kaplan M.D. on 04/24/2021 at 14:07 Approved by: Benigno Kaplan M.D. on 04/24/2021 at 14:08 Extremity x-ray #2: Radiologist's Impression: [address] [place] [address] [id number] ReportS igned Patient: Beverly Saunders KMR#: [id number]: [id number]:[id number]/Sex: 65 / FDate of Service: 04/24/21Loc: EDAccession Number: [id number] Procedure: XR hip w pel if done LT 2V Ordering Provider: Demetrius Mccabe D.O. PROCEDURE: XR HIP W PEL IF DONE LT 2V INDICATIONS: fall, unable to bear wt lt leg TECHNIQUE: AP pelvis with lateral view(s) of the left hip(s). COMPARISON: None. FINDINGS: Bones: No fractures or dislocations. Symmetric appearing [id number] bilateral hip joint osteoarthritic changes are seen. No evidence of avascular necrosis of femoral head. Pelvic ring appears intact. No suspicious bony lesions. Soft tissues: The visualized bowel gas pattern is normal. No suspicious soft tissue calcifications. IMPRESSION: No acute left hip fracture or dislocation. Bilateral hip joint osteoarthritis. No evidence of avascular necrosis. Dictated by: Benigno Kaplan M.D. on 04/24/2021 at 14:08 Approved by: Benigno Kaplan M.D. on 04/24/2021 at 14:09 CT lower extremity: Radiologist's Impression: [address] [place] [address] [id number] Scan ReportSigned Patient: Beverly Saunders KMR#: [id number]: 1955cct:[id number]/Sex: 65 / FDate of Service: 04/24/21Loc: EDAccession Number: [id number] Procedure: CT LE LT wo con Ordering Provider: Stefany Wells TABLEAU LEAD- PROCEDURE: CT LE LT W CON INDICATIONS: pain status post fall, unable to bear weight TECHNIQUE: Noncontrast 1-1.5 mm axial sections acquired from the mid-patella to the proximal tibia, with coronal and sagittal reformats. COMPARISON: [facility], CR, XR KNEE LT 3V, 04/24/2021, 13:41. FINDINGS: Image quality: Excellent. Bones: No displaced or depressed fracture identified. There is tricompartmental osteophytosis with mild joint space narrowing in the medial compartment with subchondral sclerosis. There is mild lateral tilt and shift of the patella with moderate narrowing in the lateral patellofemoral compartment. Soft tissues: There is a minimal joint effusion. No soft tissue fluid collections identified. Visualized musculature appears within normal limits. The anterior and posterior cruciate ligaments appear grossly intact with evaluation limited on CT. The quadriceps and patellar tendons also appear intact. IMPRESSION: 1. No displaced or depressed fracture identified. 2. Mild to moderate tricompartmental osteoarthritic changes. 3. Minimal joint effusion. If clinical concern persists for internal derangement, further evaluation may be obtained with MRI. Dictated by: Jason Ansari M.D. on 04/24/2021 at 17:13 Approved by: Jason Ansari M.D. on 04/24/2021 at 17:17 [facility] Narrative Medical decision making narrative: The patient is a 65-year-old female who presents with a chief complaint of left hip and knee pain after ground level fall several days ago. Her initial x-rays are negative, however despite her pain medication she is still unable to bear weight even with the support of an elastic bandage. Thus I did get a CT to help rule out occult fracture. This resulted negative. The patient was given more pain medications and a knee immobilizer, was able to bear weight with a walker with a steady gait per nursing. I did discuss at length that we need to be careful with pain medications so that we do not increase her instability. Discussed at length the possibility of soft tissue injury despite normal x-ray. Discussed at length the importance of following up with primary care provider in the next few days as well as coming back to the ER for acute concerns. Did encourage the patient to use her walker consistently, discussed the increased risk of falls at home especially given her multiple sclerosis. The patient was actually seen and evaluated by health and social care teacher in the emergency department, given multiple resources etcetera. Patient has no questions or concerns upon discharge states understanding of return precautions as well as follow-up care. She has been hemodynamically stable throughout her stay in the ER. Discharge Plan Departure Patient Disposition: Home Clinical Impression: Fall from ground level Acute knee pain Qualifiers: Laterality: left Qualified Code(s): M25.562 - Pain in left knee Instructions: How to Choose and Use a Walker, How To Perform RICE (Rest, Ice, Compress, Elevate), DI for Knee Pain, DI for Leg Pain, How to Use a Knee Immobilizer Activity Restrictions/Additional Instructions: Thank you for trusting us with your care today. Discussed, your imaging shows no acute fracture. Please follow-up with primary care provider in the next few days. As discussed, please use the walker for stability. As I discussed, your x-ray shows no acute fracture. This does not rule out a soft tissue injury such as a ligament or tendon injury. It is important that you follow up with primary care provider, especially if worsening or no improvement. There can be fractures that did not show up on initial x-ray. I have given you a prescription of a narcotic for pain. Be aware that this can be constipating and sedating. I encouraged taking with a stool softener, pushing fluids and fiber. Do not take and drive, operate heavy machinery, etc. Do not combine it with any other sedating substances such as alcohol. The combination of narcotics and alcohol and/or other sedatives can be lethal. Prescriptions: New lidocaine 5 % adhesive patch,medicated 1 patch topical DAILY PRN (Reason: pain) Qty: 15 RF: 0 oxycodone-acetaminophen 5-325 mg tablet 1 tab PO Q4-6H PRN (Reason: pain) Qty: 7 RF: 0 No Action triamcinolone acetonide 0.1 % ointment TOP TID PRNRF: 0 lysine 1,000 mg tablet 1,000 mg PO DAILY RF: 0 calcium carbonate-vit D3-min 600 mg calcium- 200 unit tablet 1 tab PO BID RF: 0 eczema cream topical RF: 0 hydroxyzine HCl 50 mg tablet 50 mg PO TID PRN (Reason: itching or anxiety) Qty: 180 RF: 1 Vyvanse 40 mg capsule 40 mg PO QAM Qty: 90 RF: 0 Myrbetriq 50 MG tablet extended release 24 hr 50 mg PO DAILY Qty: 0 RF: 0 Plegridy 125 MCG/0.5 ML syringe 125 mcg SQ Q2W Qty: 0 RF: 0 meloxicam 15 mg tablet 15 mg PO Q DAY Qty: 90 RF: 1 montelukast [Singulair] 10 mg tablet 10 mg PO QDAY Qty: 90 RF: 1 albuterol sulfate [Ventolin HFA] 90 mcg/actuation HFA aerosol inhaler 1 puff INHALATION Q4-6H PRN (Reason: shortness of breath or wheezing) Qty: 6.7 RF: 11 bupropion HCl [Wellbutrin XL] 300 mg tablet extended release 24 hr 300 mg PO QDAY Qty: 90 RF: 2 bupropion HCl [Wellbutrin XL] 150 mg tablet extended release 24 hr 150 mg PO QDAY Qty: 90 RF: 2 fluoxetine 40 mg capsule 80 mg PO QAM Qty: 180 RF: 0 Referrals: Curtis Adams MD [Primary Care Provider] - <Demetrius Mccabe DO - Last Filed: 04/24/21 18:39> Cosign ED Attending Cosignature Attestation: Dr Mccabe Co-Sign Statement: I was available for consultation during this patient's emergency department visit. This chart is signed by myself for administrative purposes only. I did not have direct contact with this patient during this visit. They were seen independently by the APC.
--- NOTE | 2021-04-24 15:50 | CM.SWNOTE ---
ASSIGNMENT AGENT Note ASSIGNMENT AGENT receives consult and meets with patient. Patient is 65 y/o female with dx of MS who presents to this ED after recent GLF. Patient is A/Ox4 and reports she lives alone. Patient states her friend insisted that she come to this ED today. Patient states that she is looking into custodial homes and plans to talk to her landlord this weekend about plans to move out. Patient states her neurologist informed her a long time ago that she should not live alone but patient reports she values independence. Patient states that she has neighbors and friends near by that are willing to help but she does not want to bother them. Patient states that she fell on her face a few weeks ago and after both recent falls she was able to ambulate and get up. Patient states that she has a walker at home that she uses in public. Patient states the ground is uneven at home and when she gets distracted she falls when she loses her balance. ASSIGNMENT AGENT discusses caregivers, HH and patient's idea of custodial home. ASSIGNMENT AGENT informs patient that patient's PCP Dr. Quinn can submit referral for HH as well. Patient declines HH but indicates understanding and agreement to other services available to patient. ASSIGNMENT AGENT provides patient with senior resource guide, patient states she plans to sign self up with meals on wheels and look into other service options. Patient states she struggles with cooking and doing dishes, patient endorses that she has a nipple machine operator and a senior field engineer to assist with home maintenance. ASSIGNMENT AGENT reviews the above with ED provider CHINEDU Parson and she indicates agreement and understanding. Plan: Patient to d/c home when medically clear. JEFE Avila
--- NOTE | 2021-04-24 16:34 | DI.CT.S_ITS ---
PROCEDURE: CT LE LT W CON INDICATIONS: pain status post fall, unable to bear weight TECHNIQUE: Noncontrast 1-1.5 mm axial sections acquired from the mid-patella to the proximal tibia, with coronal and sagittal reformats. COMPARISON: [facility], CR, XR KNEE LT 3V, 04/24/2021, 13:41. FINDINGS: Image quality: Excellent. Bones: No displaced or depressed fracture identified. There is tricompartmental osteophytosis with mild joint space narrowing in the medial compartment with subchondral sclerosis. There is mild lateral tilt and shift of the patella with moderate narrowing in the lateral patellofemoral compartment. Soft tissues: There is a minimal joint effusion. No soft tissue fluid collections identified. Visualized musculature appears within normal limits. The anterior and posterior cruciate ligaments appear grossly intact with evaluation limited on CT. The quadriceps and patellar tendons also appear intact. IMPRESSION: 1. No displaced or depressed fracture identified. 2. Mild to moderate tricompartmental osteoarthritic changes. 3. Minimal joint effusion. If clinical concern persists for internal derangement, further evaluation may be obtained with MRI. Dictated by: Jason Ansari M.D. on 04/24/2021 at 17:13 Approved by: Jason Ansari M.D. on 04/24/2021 at 17:17
[2021-04-24] MEDS: OXYCODONE/ACETAMINOPHEN 5/325 TABLET 1 TAB PO (16:54)
[2021-04-24 17:15] VITALS: BP 149/80; PULSE 62; RESP 18; O2SAT 98
== END 2021-04-24 18:27 | disposition home or self-care (01) ==
PROVIDERS: Emergency Provider Nurse Practitioner Family; PCP Family Medicine
DX: M25.562 Pain in left knee (principal); M25.552 Pain in left hip; W19.XXXA Unspecified fall, initial encounter
CPT/HCPCS: 73502; 73562; 73700; 99284

== ENCOUNTER → 2022-01-28 11:29 | Outpatient (CLI) | payer OTHER, SELFPAY ==
--- NOTE | 2022-01-28 | DI.MG.S_ITS ---
UNILATERAL RIGHT DIGITAL SCREENING MAMMOGRAM 3D/2D WITH CAD: 01/28/2022 CLINICAL: Routine screening. Personal history of left breast cancer. Family history of breast cancer. Comparison is made to exams dated: 01/26/2021 mammogram, 12/08/2019 mammogram, 11/05/2018 mammogram, 11/17/2017 mammogram, and 11/13/2016 mammogram - [facility]. The tissue of right breast is heterogeneously dense. This may lower the sensitivity of mammography. Current study was also evaluated with a Computer Aided Detection (CAD) system. No significant masses, calcifications, or other findings are seen in the breast. There has been no significant interval change. IMPRESSION: NEGATIVE There is no mammographic evidence of malignancy. A 1 year screening mammogram is recommended. This exam was interpreted at Station ID: [id number]. NOTE: For mammograms, a report in lay terms will be sent to the patient. Approximately 15% of breast malignancies will not be visualized mammographically. In the management of a palpable breast mass, a negative mammogram must not discourage biopsy of a clinically suspicious lesion. Electronically Signed By: Levi howell/solomon:01/28/2022 13:30:32 copy to: GALILEO ROWAN letter sent: Normal Exam ACR BI-RADS Category 1: Negative [id number]
== END ==
PROVIDERS: PCP Family Medicine; Referring Provider Family Medicine; Visit Provider Family Medicine
DX: Z12.31 Encounter for screening mammogram for malignant neoplasm of breast (principal); Z85.3 Personal history of malignant neoplasm of breast; Z80.3 Family history of malignant neoplasm of breast
CPT/HCPCS: 77063; 77067

== ENCOUNTER → 2022-02-12 13:46 | Outpatient (CLI) | payer OTHER, SELFPAY | PROVIDERS: PCP Family Medicine; Visit Provider Physician Assistant | DX: N34.3 Urethral syndrome, unspecified (principal) | CPT/HCPCS: 87086 ==

== ENCOUNTER → 2023-01-23 14:08 | Outpatient (CLI) | payer OTHER, SELFPAY ==
--- NOTE | 2023-01-23 14:10 | DI.RAD.S_ITS ---
PROCEDURE: XR KNEE RT 3V INDICATIONS: acute r knee pain, posterior, no injury TECHNIQUE: 3 views of the knee were acquired. COMPARISON: [facility], [place], XR KNEE LT 3V, 04/24/2021, 13:41. [facility], [place], KNEE 3V RIGHT, 03/03/2017, 17:33. FINDINGS: Bones: Moderate arthrosis, particularly the medial and patellofemoral compartment. No displaced fracture or dislocation. Soft tissues: No significant joint effusion. IMPRESSION: No acute radiographic abnormality. Moderate degenerative changes. If there is high concern for further derangement, consider MRI evaluation. Dictated by: Julian Caraballo M.D. on 01/23/2023 at 14:54 Approved by: Julian Caraballo M.D. on 01/23/2023 at 14:55
== END ==
PROVIDERS: PCP Family Medicine; Referring Provider Student in an Organized Health Care Education/Training Program; Visit Provider Student in an Organized Health Care Education/Training Program
DX: M17.11 Unilateral primary osteoarthritis, right knee (principal); M25.561 Pain in right knee
CPT/HCPCS: 73562

== ENCOUNTER → 2023-02-07 12:41 | Outpatient (CLI) | payer OTHER, SELFPAY ==
--- NOTE | 2023-02-07 12:43 | DI.MG.S_ITS ---
UNILATERAL RIGHT DIGITAL SCREENING MAMMOGRAM 3D/2D WITH CAD: 02/07/2023 CLINICAL: Routine screening. Personal history of left breast cancer and mastectomy. Family history of breast cancer. Comparison is made to exams dated: 01/28/2022 mammogram, 01/26/2021 mammogram, 12/08/2019 mammogram, and 11/05/2018 mammogram - [facility]. The right breast is heterogeneously dense, which may obscure small masses (category c / 51-75% glandular tissue). Current study was also evaluated with a Computer Aided Detection (CAD) system. No significant masses, calcifications, or other findings are seen in the breast. There has been no significant interval change. IMPRESSION: NEGATIVE There is no mammographic evidence of malignancy. A 1 year screening mammogram is recommended. This exam was interpreted at Station ID: [id number]. NOTE: For mammograms, a report in lay terms will be sent to the patient. Approximately 15% of breast malignancies will not be visualized mammographically. In the management of a palpable breast mass, a negative mammogram must not discourage biopsy of a clinically suspicious lesion. Electronically Signed By: Levi howell/solomon:02/09/2023 09:44:43 copy to: GALILEO ROWAN letter sent: Normal Exam ACR BI-RADS Category 1: Negative 3341F
== END ==
PROVIDERS: PCP Family Medicine; Referring Provider Family Medicine; Visit Provider Family Medicine
DX: Z12.31 Encounter for screening mammogram for malignant neoplasm of breast (principal); Z85.3 Personal history of malignant neoplasm of breast; Z80.3 Family history of malignant neoplasm of breast; Z90.12 Acquired absence of left breast and nipple
CPT/HCPCS: 77063; 77067

== ENCOUNTER → 2023-04-17 16:00 | Outpatient (CLI) | payer OTHER, SELFPAY ==
--- NOTE | 2023-04-17 16:01 | DI.MRI.S_ITS ---
PROCEDURE: MR SHOULDER RT WO CON INDICATIONS: bicep tendon tear TECHNIQUE: Noncontrast oblique coronal T2 fast spin echo with fat saturation, oblique sagittal T1 spin echo and T2 fast spin echo with fat saturation, axial T1 spin echo and T2 fast spin echo with fat saturation through the shoulder. COMPARISON: [facility], MR, MR SHOULDER RT WO CON, 11/18/2016, 13:30. FINDINGS: Image quality: Excellent. Rotator cuff: There is high-grade partial articular sided tearing of the supraspinatus tendon at the anterior footprint measuring approximately 8 mm in anterior-posterior dimension. Low-grade partial articular sided tearing is seen at the midportion of the distal infraspinatus tendon with mild intrasubstance continuation anterior to the tear. The teres minor tendon is intact. There is high-grade partial articular sided tearing of the subscapularis tendon at the distal insertion involving the majority of the tendon. No significant rotator cuff muscle atrophy is seen. Bones and bursae: No acute trabecular bone injury or fracture. Chronic traction cystic changes are seen at the posterosuperior humeral head and the greater and lesser tuberosities near the rotator cuff tendon insertions there is mild degenerative spurring in the glenoid rim. Moderate degenerative changes are seen at the acromioclavicular joint with marginal osteophyte formation and subchondral cystic changes and edema. There is a trace amount of subacromial/subdeltoid bursal fluid. A physiologic amount of glenohumeral joint fluid is present. Capsule and soft tissues: There is mild diffuse labral degeneration. No acute displaced labral tear is seen. There is complete tearing and distal retraction of the biceps long head tendon below the field of view of this exam. A short segment of residual proximal biceps long head tendon is seen with hyperintense T2-weighted signal indicating severe tendinosis. IMPRESSION: 1. Complete tearing distal retraction of the proximal biceps long head tendon. A residual short stump of biceps long head tendon with severe tendinosis is seen adjacent to the superior labrum. 2. High-grade partial articular sided tearing of the supraspinatus tendon at the anterior footprint measuring 8 mm in anterior-posterior dimension superimposed on chronic tendinosis. 3. Low-grade partial articular sided and intrasubstance tearing of the anterior to mid infraspinatus tendon superimposed on chronic tendinosis. 4. High-grade partial articular sided tearing of the majority of the subscapularis tendon at its distal insertion. 5. Moderate acromioclavicular joint osteoarthrosis. 6. Trace subacromial/subdeltoid bursal effusion or bursitis. Approved by: Luis Nixon M.D. on 04/20/2023 at 8:59
== END ==
PROVIDERS: PCP Family Medicine; Referring Provider Nurse Practitioner Family; Visit Provider Nurse Practitioner Family
DX: S46.219A Strain of muscle, fascia and tendon of other parts of biceps, unspecified arm, initial encounter (principal); S46.111A Strain of muscle, fascia and tendon of long head of biceps, right arm, initial encounter; S46.811A Strain of other muscles, fascia and tendons at shoulder and upper arm level, right arm, initial encounter; M19.011 Primary osteoarthritis, right shoulder
CPT/HCPCS: 73221

== ENCOUNTER → 2023-06-29 15:25 | Outpatient (CLI) | payer OTHER, SELFPAY | PROVIDERS: PCP Family Medicine; Visit Provider Nurse Practitioner Family | DX: N89.8 Other specified noninflammatory disorders of vagina (principal); N39.0 Urinary tract infection, site not specified | CPT/HCPCS: 87077; 87086; 87186; 87210 ==

== ENCOUNTER → 2024-02-09 13:04 | Outpatient (CLI) | payer OTHER, SELFPAY ==
--- NOTE | 2024-02-09 13:06 | DI.MG.S_ITS ---
UNILATERAL RIGHT DIGITAL SCREENING MAMMOGRAM 3D/2D WITH CAD: 02/09/2024 CLINICAL: Routine screening. Breast cancer. Family history breast cancer. Comparison is made to exams dated: 02/07/2023 mammogram, 01/28/2022 mammogram, and 01/26/2021 mammogram - [facility]. The right breast is heterogeneously dense, which may obscure small masses (category c / 51-75% glandular tissue). Current study was also evaluated with a Computer Aided Detection (CAD) system. No significant masses, calcifications, or other findings are seen in the breast. There has been no significant interval change. IMPRESSION: NEGATIVE There is no mammographic evidence of malignancy. A 1 year screening mammogram is recommended. This exam was interpreted at Station ID: [id number]. NOTE: For mammograms, a report in lay terms will be sent to the patient. Approximately 15% of breast malignancies will not be visualized mammographically. In the management of a palpable breast mass, a negative mammogram must not discourage biopsy of a clinically suspicious lesion. Electronically Signed By: Jailene York M.D., PH.D eb/penrad:02/09/2024 16:10:51 copy to: GALILEO ROWAN letter sent: Normal Exam ACR BI-RADS Category 1: Negative 3341F
== END ==
LOC: MAMMO 13:05
PROVIDERS: PCP Family Medicine; Referring Provider Family Medicine; Visit Provider Family Medicine
DX: Z12.31 Encounter for screening mammogram for malignant neoplasm of breast (principal); Z85.3 Personal history of malignant neoplasm of breast; Z80.3 Family history of malignant neoplasm of breast; R92.331 Mammographic heterogeneous density, right breast
CPT/HCPCS: 77063; 77067

== ENCOUNTER 2025-10-12 15:28 | Emergency (ER) | payer OTHER, SELFPAY ==
[2025-10-12 15:35] VITALS: PULSE 60; RESP 16; TEMP 36.2; O2SAT 98; BMI 25.7
--- NOTE | 2025-10-12 15:40 | DI.RAD.S_ITS ---
PROCEDURE: XR RIBS LT MIN 3V W CXR1V INDICATIONS: fall striking left side of chest TECHNIQUE: 2 views of the ribs were acquired, along with a single view chest. COMPARISON: None. FINDINGS: Surgical changes and devices: Surgical clips in left breast and left axilla. Bones and chest wall: No fractures or dislocations. No suspicious bony lesions. Overlying soft tissues appear unremarkable. Thoracolumbar S-shaped scoliosis. Lungs and pleura: No pleural effusions or pneumothorax. Lungs appear clear. Mediastinum: Mediastinal contours appear normal. Heart size is normal. IMPRESSION: No displaced rib fracture or pneumothorax. Dictated by: Joseph Howard M.D. on 10/12/2025 at 16:54 Approved by: Joseph Howard M.D. on 10/12/2025 at 16:54
--- NOTE | 2025-10-12 15:56 | ED.FALL ---
HPI - Fall <Heidi Leiva PA-C - Last Filed: 10/12/25 19:34> General Chief Complaint: Fall Stated Complaint: GLF, heard a pop from ribs LT side Time Seen by Provider: 10/12/25 15:45 Source: patient Mode of arrival: Ambulatory History of Present Illness HPI Narrative: Ms. Saunders is a pleasant 70-year-old female with a past medical history of stage IV metastatic breast cancer s/p left mastectomy, asthma, multiple sclerosis who presents to the emergency department for anterior left-sided rib pain after a trip and fall that occurred 5 days ago. 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 She did not hit her head. No loss of consciousness, neck pain, back pain, upper or lower extremity pain. She has had persistent left anterior chest wall/rib pain since the fall. She is concerned she may have broken a rib as she has broken ribs on the right side in the past. She is not having any shortness of breath, she does have pain with movement. She has been using Flexeril and hydrocodone for the pain which is helping but making her slightly dizzy. Denies blood thinner use. No fevers or chills. Related Data Home Medications ?Medication ?Instructions ?Recorded ?Confirmed mirabegron 50 mg tablet,extended 50 mg PO DAILY ##0 11/06/16 04/01/23 release 24 hr (Myrbetriq) peginterferon beta-1a 125 mcg/0.5 125 mcg SQ Q2W ##0 02/05/17 04/01/23 mL subcutaneous syringe (Plegridyao) calcium 600 mg (as carbonate)-vit 1 tab PO BID 01/24/20 04/01/23 D3 5 mcg (200 unit)-minerals tablet lysine 1,000 mg tablet 1,000 mg PO DAILY 01/24/20 04/01/23 eczema cream 1 applic topical DAILY 07/20/20 04/01/23 dupilumab 300 mg/2 mL subcutaneous 200 mg SUBCUT Q2W 11/05/21 04/01/23 pen injector (Dupixent) clonidine HCl 0.1 mg 0.1 mg PO BID Hot flashes 08/20/22 04/01/23 tablet,extended release,12 hr Previous Rx's ?Medication ?Instructions ?Recorded meloxicam 15 mg tablet 15 mg PO Q DAY #90 tabs 07/23/18 montelukast 10 mg tablet 10 mg PO QDAY #90 tabs 09/06/18 (Singulair) albuterol sulfate 90 mcg/actuation 1 puff inhalation Q4-6H PRN 01/03/19 aerosol inhaler (Ventolin HFA) shortness of breath or wheezing #6.7 grams lidocaine 5 % topical patch 1 patch topical DAILY PRN pain #15 04/24/21 ea hydroxyzine HCl 50 mg tablet 50 mg PO BID PRN itching or 05/26/22 anxiety #180 tabs bupropion HCl 150 mg 24 hr tablet, 150 mg PO QDAY #90 tabs 08/20/22 extended release (Wellbutrin XL) bupropion HCl 300 mg 24 hr tablet, 300 mg PO QDAY #90 tabs 08/20/22 extended release (Wellbutrin XL) fluoxetine 40 mg capsule 80 mg (2 x 40 mg) PO QAM #180 caps 08/20/22 lisdexamfetamine 40 mg capsule 40 mg PO QAM #90 caps 08/20/22 (Vyvanse) Allergies Allergy/AdvReac Type Severity Reaction Status Date / Time feathers (FEATHERS) Allergy Severe ASTHMA Verified 04/01/23 13:42 mold (MOLD) Allergy Severe ASTHMA Verified 04/01/23 13:42 grass pollen (GRASS POLLEN) AdvReac Intermediate DERMATITIS Verified 04/01/23 13:42 Review of Systems <Heidi Leiva PA-C - Last Filed: 10/12/25 19:34> Review of Systems ROS Unobtainable: All systems reviewed & are unremarkable except as noted in HPI and below Patient History <Heidi Leiva PA-C - Last Filed: 10/12/25 19:34> Medical History (Updated 10/12/25 @ 17:55 by Heidi Leiva PA-C) Trigger finger Hot flashes Right knee pain Depression (Unknown) Ascending aortic aneurysm (~02/2017) Osteoarthritis (~04/2017) Low back pain (Unknown) Breast cancer (~2015) ADHD (attention deficit hyperactivity disorder) (Unknown) Asthma (Unknown) Carpal tunnel syndrome (~2017) Multiple sclerosis (Unknown) Migraines (Unknown) Psoriasis (Unknown) Major depression, recurrent, full remission Generalized anxiety disorder Trigger middle finger of left hand (12/03/17) Pain of left hand (12/03/17) Chronic pain of right knee (03/03/17) Chronic pain of both shoulders (03/03/17) Ascending aortic aneurysm (03/03/17) Paresthesia (12/29/16) Pain in both upper extremities (12/29/16) 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 Mother No problems noted. Grandfather No problems noted. Grandmother No problems noted. Grandfather No problems noted. Grandmother No problems noted. Social History Smoking Status: Never smoker Smoking Status: Never smoker alcohol intake frequency: 0-2 drinks per day Alcohol type: beer and hard liquor Exam <Heidi Leiva PA-C - Last Filed: 10/12/25 19:34> Narrative Exam Narrative: GENERAL: 70 year old patient appears stated age. Well-developed patient, in no acute distress. HEAD: Atraumatic. Normocephalic. EYES: No scleral icterus. No injection or drainage. NECK: Trachea midline. Cervical ROM intact. No midline cervical tenderness. CARDIOVASCULAR: Regular rate and rhythm. RESPIRATORY: ?Nonlabored respirations. ?Speaking in clear, full sentences. ?Clear to auscultation. Breath sounds equal bilaterally. No wheezes, rales, or rhonchi. ? GASTROINTESTINAL: Abdomen soft, non-tender, nondistended. No ecchymosis. EXTREMITIES: No tenderness palpation of bilateral ankles, knees, hips, shoulders, elbows, wrists. Palpable PT pulses bilaterally. BACK: Nontender, no midline spinal tenderness. NEURO: AOx3. ?Clear speech. ? SKIN: Left mastectomy. Tenderness to palpation of anterior left-sided ribs just below mastectomy scars. Initial Vital Signs Initial Vital Signs: Vital Signs Temperature 97.2 F L 10/12/25 15:35 Pulse Rate 60 10/12/25 15:35 Respiratory Rate 16 10/12/25 15:35 Pulse Oximetry 98 10/12/25 15:35 Oxygen Delivery Method Room Air 10/12/25 15:35 <Stefany Saul DO - Last Filed: 10/14/25 00:28> Initial Vital Signs Initial Vital Signs: Vital Signs Temperature 97.2 F L 10/12/25 15:35 Pulse Rate 60 10/12/25 15:35 Respiratory Rate 16 10/12/25 15:35 Pulse Oximetry 98 10/12/25 15:35 Oxygen Delivery Method Room Air 10/12/25 15:35 Course <Heidi Leiva PA-C - Last Filed: 10/12/25 19:34> Orders Ordered: ED Orders 10/12/25 15:40 XR ribs LT min 3V w CXR1V Stat 10/12/25 16:07 CT chest wo con Stat Vital Signs Vital signs: Vital Signs - 8 hr 10/12/25 15:35 10/12/25 18:09 Temperature 97.2 F L 97.9 F Pulse Rate 60 66 Respiratory Rate 16 18 Blood Pressure 125/77 Pulse Oximetry 98 95 Oxygen Delivery Method Room Air Room Air <DO Antonio Galeano Last Filed: 10/14/25 00:28> Orders Ordered: ED Orders 10/12/25 15:40 XR ribs LT min 3V w CXR1V Stat 10/12/25 16:07 CT chest wo con Stat Vital Signs Vital signs: Vital Signs - 8 hr 10/12/25 15:35 10/12/25 18:09 Temperature 97.2 F L 97.9 F Pulse Rate 60 66 Respiratory Rate 16 18 Blood Pressure 125/77 Pulse Oximetry 98 95 Oxygen Delivery Method Room Air Room Air MDM - Fall <Heidi Leiva PA-C - Last Filed: 10/12/25 19:34> Medical Records Attestation: I reviewed the patient's medical records. Imaging Data CT Chest: Radiologist's Impression: PROCEDURE: CT CHEST WO CON INDICATIONS: fall 5 days ago; anterior L rib pain; stage 4 cancer TECHNIQUE: Noncontrast 5 mm thick sections acquired from the pulmonary apices to the posterior costophrenic angles. 1 mm lung window, 5 mm thick coronal and sagittal and 7 mm axial MIP reformats were then acquired. For radiation dose reduction, the following was used: automated exposure control, adjustment of mA and/or kV according to patient size. COMPARISON: [place], [place], PET NECK TO MID THIGH, 07/07/2025, 11:45. FINDINGS: Image quality: Diagnostic. Lower Neck: No enlarged lymph nodes. Thyroid: No thyroid nodules which require sonographic follow up, per consensus guidelines. Axillae: No enlarged lymph nodes. Chest Wall: Unremarkable. Bones: Subtle anterior left 3rd rib fracture. Reference image 122 of series 3. Lateral left 5th rib fracture. The metastatic lesions noted on the PET-CT involving the upper thoracic spine are not well visualized on CT. Lungs and Pleura: No pneumothorax or pleural effusions. No consolidation or suspicious nodules. Heart: Heart size is normal. No pericardial effusion. Thoracic Vessels: Aneurysmal dilatation of the ascending aorta, measuring 4.5 cm. Mediastinum and Chitra: No enlarged lymph nodes. Esophagus: No wall thickening. No hiatal hernia. Upper Abdomen: Visualized upper abdomen solid organs and bowel loops appear normal. IMPRESSION: There are definite fractures of the left anterior 3rd rib and lateral 5th rib. No underlying pneumothorax. No pulmonary parenchymal metastatic disease. Dictated by: Taz Blackwood M.D. on 10/12/2025 at 17:26 Approved by: Taz Blackwood M.D. on 10/12/2025 at 17:30 [facility] Narrative Medical decision making narrative: 70-year-old female with a past medical history of stage IV metastatic breast cancer s/p left mastectomy, asthma, multiple sclerosis who presents to the emergency department for anterior left-sided rib pain after a trip and fall that occurred 5 days ago. Differential diagnosis includes but is not limited to left rib contusion, fracture, etc. On exam patient is in no acute distress, nontoxic appearing, vital signs within normal limits. She is in no respiratory distress. She has no chest wall deformity or bruising but she does have tenderness on the left anterior chest wall directly where she hit her ribs few days ago. X-ray obtained in triage however given patient's past medical history comorbidities we will obtain CT chest without contrast for further evaluation. She declines need for pain medication at this time. CT chest reveals definite fractures of the left anterior 3rd rib in the lateral 5th rib. No underlying pneumothorax no pulmonary parenchymal metastatic disease. She has known aneurysmal dilatation measuring 4.5 cm, it was 4.4 cm in 2019. Her chest x-ray was negative. Printed and discussed imaging results with the patient including acute and chronic findings. She has hydrocodone at home to use for her pain. Respiratory therapy about with the patient review incentive spirometry. She also has albuterol to use at home as needed. Advised supportive care, PCP follow up, ED return precautions. Patient verbalized understanding all information agreeable to plan. She is ambulatory and stable for discharge home. Discharge Plan Departure Patient Disposition: Home Clinical Impression: Fracture of left third rib, Fracture of left fifth rib, Ground-level fall Instructions: DI for Rib Fracture Activity Restrictions/Additional Instructions: Dear Chip, Thank you for coming to the emergency department. Today you were evaluated for left-sided chest/rib pain and your CT scan did reveal that you broke your 3rd and 5th ribs. Please use the provided incentive spirometry to help prevent pneumonia and lung problems. Please use your home hydrocodone as needed for pain. Please be careful using hydrocodone and Flexeril together as this can make you drowsy or dizzy. Please follow up with the primary care doctor, return to the emergency department you develop fevers, difficulty breathing, severe pain or any other concerns. Please follow up with your primary care doctor within the next 2-3 days for ER follow-up. (If you do not have a PCP you can call [phone]. ?to schedule an appointment with an [facility] Primary Care Provider) IF YOU DEVELOP ANY NEW OR WORSENING SYMPTOMS, RETURN TO THE ER! Please read the attached instructions, they highlight more specific treatments and interventions for you at home. Thank you for letting me participate in your care, Heidi C. Cali, PA-C Prescriptions: No Action hydroxyzine HCl 50 mg tablet 50 mg PO BID PRN (Reason: itching or anxiety) Qty: 180 1RF Rx Instructions: OK to increase to 100mg if 50mg not effective lysine 1,000 mg tablet 1,000 mg PO DAILY calcium carbonate-vit D3-min 600 mg calcium- 200 unit tablet 1 tab PO BID eczema cream 1 applic topical DAILY Dupixent Pen 300 mg/2 mL pen injector 200 mg SUBCUT Q2W clonidine HCl 0.1 mg tablet extended release 12 hr 0.1 mg PO BID bupropion HCl [Wellbutrin XL] 150 mg tablet extended release 24 hr 150 mg PO QDAY Qty: 90 1RF Rx Instructions: Take 150mg tab in addition to 300mg tab for daily dose of 450mg bupropion HCl [Wellbutrin XL] 300 mg tablet extended release 24 hr 300 mg PO QDAY Qty: 90 1RF Rx Instructions: Take 300mg daily together with 150mg tablet for total daily dose of 450mg fluoxetine 40 mg capsule 80 mg PO QAM Qty: 180 1RF Vyvanse 40 mg capsule 40 mg PO QAM Qty: 90 0RF Myrbetriq 50 MG tablet extended release 24 hr 50 mg PO DAILY Qty: 0 Plegridy 125 MCG/0.5 ML syringe 125 mcg SQ Q2W Qty: 0 meloxicam 15 mg tablet 15 mg PO Q DAY Qty: 90 1RF montelukast [Singulair] 10 mg tablet 10 mg PO QDAY Qty: 90 1RF albuterol sulfate [Ventolin HFA] 90 mcg/actuation HFA aerosol inhaler 1 puff INHALATION Q4-6H PRN (Reason: shortness of breath or wheezing) Qty: 6.7 11RF lidocaine 5 % adhesive patch,medicated 1 patch topical DAILY PRN (Reason: pain) Qty: 15 0RF Rx Instructions: leave on most painful area for up to 12 hrs Referrals: Curtis Adams MD [Primary Care Provider, Family Practice] Stand Alone Forms: Patient Portal/API ED Sign-out <Stefany Saul, - Last Filed: 10/14/25 00:28> Cosign ED Attending Garrettature Attestation: I was immediately available in the department for consultation.
--- NOTE | 2025-10-12 16:07 | DI.CT.S_ITS ---
PROCEDURE: CT CHEST WO CON INDICATIONS: fall 5 days ago; anterior L rib pain; stage 4 cancer TECHNIQUE: Noncontrast 5 mm thick sections acquired from the pulmonary apices to the posterior costophrenic angles. 1 mm lung window, 5 mm thick coronal and sagittal and 7 mm axial MIP reformats were then acquired. For radiation dose reduction, the following was used: automated exposure control, adjustment of mA and/or kV according to patient size. COMPARISON: [place], [place], PET NECK TO MID THIGH, 07/07/2025, 11:45. FINDINGS: Image quality: Diagnostic. Lower Neck: No enlarged lymph nodes. Thyroid: No thyroid nodules which require sonographic follow up, per consensus guidelines. Axillae: No enlarged lymph nodes. Chest Wall: Unremarkable. Bones: Subtle anterior left 3rd rib fracture. Reference image 122 of series 3. Lateral left 5th rib fracture. The metastatic lesions noted on the PET-CT involving the upper thoracic spine are not well visualized on CT. Lungs and Pleura: No pneumothorax or pleural effusions. No consolidation or suspicious nodules. Heart: Heart size is normal. No pericardial effusion. Thoracic Vessels: Aneurysmal dilatation of the ascending aorta, measuring 4.5 cm. Mediastinum and Chitra: No enlarged lymph nodes. Esophagus: No wall thickening. No hiatal hernia. Upper Abdomen: Visualized upper abdomen solid organs and bowel loops appear normal. IMPRESSION: There are definite fractures of the left anterior 3rd rib and lateral 5th rib. No underlying pneumothorax. No pulmonary parenchymal metastatic disease. Dictated by: Taz Blackwood M.D. on 10/12/2025 at 17:26 Approved by: Taz Blackwood M.D. on 10/12/2025 at 17:30
[2025-10-12 18:09] VITALS: BP 125/77; PULSE 66; RESP 18; TEMP 36.6; O2SAT 95
== END 2025-10-12 18:11 | disposition home or self-care (01) ==
PROVIDERS: Emergency Provider Physician Assistant; PCP Family Medicine
DX: S22.42XA Multiple fractures of ribs, left side, initial encounter for closed fracture (principal); W18.09XA Striking against other object with subsequent fall, initial encounter
CPT/HCPCS: 71101; 71250; 99281; 99284